=== PATIENT | female | born 1990 | race Caucasian/White ===

== ENCOUNTER 2017-02-07 10:31 | Emergency (ER) | payer SELFPAY ==
[2017-02-07 10:55] VITALS: BP 136/78
--- NOTE | 2017-02-07 11:27 | ED ---
Skin Complaint - HPI Summary HPI Summary: 26F presents with bug bites to legs and arm s/p going outside two days ago. denies seeing anything bite her. States that the areas itch and the redness around them has been getting larger. has history of reaction to bug bites. she can not take bendaryl. denies any fevers. - History of Current Complaint Chief Complaint: EDAnimalBite Time Seen by Provider: 02/07/17 10:50 Stated Complaint: UNKNOWN BUG BITES Hx Last Menstrual Period: 09/07/16 Pain Intensity: 4 - Allergy/Home Medications Allergies/Adverse Reactions: Allergies Allergy/AdvReac Type Severity Reaction Status Date / Time Penicillins Allergy Intermediate Hives Verified 07/23/16 12:50 Sulfa Drugs Allergy Intermediate Hives Verified 07/23/16 12:50 Diphenhydramine AdvReac Flushing Verified 07/23/16 12:50 [From Benadryl] PMH/Surg Hx/FS Hx/Imm Hx Endocrine/Hematology History: Denies: Hx Diabetes, Hx Thyroid Disease Cardiovascular History: Reports: Other Cardiovascular Problems/Disorders - pt developed HTN after giving 12 weeks Denies: Hx Congestive Heart Failure, Hx Hypertension Respiratory History: Denies: Hx Asthma, Hx Chronic Obstructive Pulmonary Disease (COPD) GI History: Reports: Other GI Disorders - pt states she has acid reflux after Denies: Hx Ulcer History: Reports: Hx Renal Disease - preeclampsia, Other Problems/ Disorders - pt had preclampsia with protein in urine Neurological History: Reports: Other Neuro Impairments/Disorders - pt c/o dizziness and feeling pressure in head Psychiatric History: Reports: Hx Anxiety, Hx Depression - Immunization History Date of Tetanus Vaccine: Up to Date Date of Influenza Vaccine: None Infectious Disease History: No Infectious Disease History: Denies: Hx Clostridium Difficile, Hx Hepatitis, Hx Human Immunodeficiency Virus (HIV), Hx of Known/Suspected MRSA, Hx Shingles, Hx Tuberculosis, Hx Known/ Suspected VRE, Hx Known/Suspected VRSA, History Other Infectious Disease, Traveled Outside the [place] in Last 30 Days - Family History Known Family History: Positive: Hypertension - Social History Alcohol Use: Occasionally Substance Use Type: Reports: None Substance Use Comment - Amount & Last Used: YESTERDAY Smoking Status (MU): Former Smoker Type: Cigarettes Amount Used/How Often: 1/2 pp day Length of Time of Smoking/Using Tobacco: 9 years Have You Smoked in the Last Year: No Review of Systems Negative: Fever Negative: Chest Pain Negative: Shortness Of Breath Positive: Other - bites with surrounding erythema All Other Systems Reviewed And Are Negative: Yes Physical Exam Triage Information Reviewed: Yes Vital Signs On Initial Exam: Initial Vitals Temp Pulse Resp BP Pulse Ox 98 F 85 18 132/68 93 02/07/17 10:40 02/07/17 10:40 02/07/17 10:40 02/07/17 10:40 02/07/17 10:40 Vital Signs Reviewed: Yes Appearance: Positive: Well-Appearing Skin: Positive: Other - multiples bites across body with local allergy reaction surrounding. none of them appear infected. Head/Face: Positive: Normal Head/Face Inspection Eyes: Positive: Normal, Conjunctiva Clear Respiratory/Lung Sounds: Positive: Clear to Auscultation, Breath Sounds Present Cardiovascular: Positive: Normal, RRR Diagnostics - Vital Signs Vital Signs Temp Pulse Resp BP Pulse Ox 02/07/17 10:47 98 F 84 18 136/78 99 02/07/17 10:40 98 F 85 18 132/68 93 - Laboratory Lab Statement: Any lab studies that have been ordered have been reviewed, and results considered in the medical decision making process. Course/Dx - Course Course Of Treatment: 26F presents with bug bites across body. on exam having local allergy reaction to bites. since can not do bendaryl will give script for hydrocoristone and prednisone. patient understands and agrees with plan - Differential Diagnoses - Skin Complaint Differential Diagnoses: Cellulitis, Local Allergic Reaction, Other - bites - Diagnoses Provider Diagnoses: Bug bites Discharge - Discharge Plan Condition: Good Disposition: HOME Prescriptions: Hydrocortisone 1% CREAM* [Hytone Cream 1%*] 1 applic TOPICAL BID PRN #1 tube PRN Reason: Itching Methylprednisolone [Medrol Dosepak 4 MG*] 4 mg PO .SEE PAGE INSTRUCTION #1 packet Patient Education Materials: Insect Bite or Sting (ED) Referrals: Ina Bowers MD [Primary Care Provider] - Additional Instructions: Can apply cream with hydrocortisone to area for itchy twice a day Follow directions on dose pack for prednisone Return to ED if develop SOB, difficulty swallowing or any new or worsening symptoms
[2017-02-07 11:44] LABS: Manual Entry Verification AS; UR Preg Internal Control QC Line Present; UR Preg Kit Lot# 6030156
== END 2017-02-07 11:43 | disposition home or self-care (01) ==
LOC: ED 10:31
DX: S80.862A Insect bite (nonvenomous), left lower leg, initial encounter (principal); S80.861A Insect bite (nonvenomous), right lower leg, initial encounter; S40.869A Insect bite (nonvenomous) of unspecified upper arm, initial encounter; W57.XXXA Bitten or stung by nonvenomous insect and other nonvenomous arthropods, initial encounter; Y93.9 Activity, unspecified; Y92.9 Unspecified place or not applicable; Z32.02 Encounter for pregnancy test, result negative; I10 Essential (primary) hypertension; K21.9 Gastro-esophageal reflux disease without esophagitis; F41.8 Other specified anxiety disorders; Z88.1 Allergy status to other antibiotic agents; Z88.2 Allergy status to sulfonamides; Z88.8 Allergy status to other drugs, medicaments and biological substances; Z87.891 Personal history of nicotine dependence
CPT/HCPCS: 81025; 99281

== ENCOUNTER 2017-03-26 12:01 | Emergency (ER) | payer MEDICAID ==
[2017-03-26 12:09] VITALS: BP 122/64
[2017-03-26] MEDS ORDERED: Ketorolac INJ* 60 MG/2 ML VIAL IM ONE (13:36)
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
--- NOTE | 2017-03-26 14:48 | RAD ---
Indication: Neck pain. 3 views of the cervical spine demonstrates vertebral bodies to be normal in height. No fracture is noted. Straightening of the normal lordosis. IMPRESSION: No fracture of the cervical spine is present.
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
== END 2017-03-26 16:34 | disposition home or self-care (01) ==
LOC: ED 12:01
DX: S06.0X0A Concussion without loss of consciousness, initial encounter (principal); T14.8 Other injury of unspecified body region; Y09 Assault by unspecified means
CPT/HCPCS: 70450; 70486; 72040; 96372; 99282; J1885

== ENCOUNTER 2017-05-22 18:26 | Emergency (ER) | payer MEDICAID ==
--- NOTE | 2017-05-22 19:36 | UC ---
Sharon Tomlin SooYoung, scribed for Skinny Gaspar MD on 05/22/17 at 1920 . Abdominal Pain Female HPI - HPI Summary HPI Summary: A 27 y/o F [place] [facility] [place]/o LLQ abd pain onset a few days ago. Pain woke her up from sleep last night, rates pain as 6-7 out of 10, and radiates to her back. Denies prev abd surgery. One prev , vaginal delivery. PMHx: ovarian cysts. Associated sx: vaginal discharge. Denies: dysuria, fever, chills , BM changes. Aggravating factors: cough. - History of Current Complaint Chief Complaint: UCAbdominalPain Stated Complaint: ABD PAIN Time Seen by Provider: 05/22/17 19:16 Hx Obtained From: Patient Hx Last Menstrual Period: unk Onset/Duration: Lasting Days, Still Present Timing: Constant Severity Initially: Moderate Severity Currently: Moderate Pain Intensity: 6 Pain Scale Used: 0-10 Numeric Location: Discrete At: LLQ Radiates: Yes Radiates to: Back Aggravating Factor(s): Other: - cough Associated Signs and Symptoms: Positive: Vaginal Discharge. Negative: Fever, Urinary Symptoms, Other: - neg: chills Allergies/Adverse Reactions: Allergies Allergy/AdvReac Type Severity Reaction Status Date / Time Penicillins Allergy Intermediate Hives Verified 07/23/16 12:50 Sulfa Drugs Allergy Intermediate Hives Verified 07/23/16 12:50 Diphenhydramine AdvReac Flushing Verified 07/23/16 12:50 [From Benadryl] PMH/Surg Hx/FS Hx/Imm Hx Previously Healthy: No Cardiovascular History: Other Other Cardiovascular History: leaking valve GI/ History: Other Other GI/ History: ovarian cysts - Surgical History Surgical History: None Surgery Procedure, Year, and Place: n/a - Family History Known Family History: Positive: Hypertension - Social History Occupation: Employed Full-time Lives: Alone Alcohol Use: Occasionally Alcohol Amount: YESTERDAY Substance Use Type: None Substance Use Comment - Amount & Last Used: YESTERDAY Smoking Status (MU): Former Smoker Type: Cigarettes Amount Used/How Often: 1/2 pp day Length of Time of Smoking/Using Tobacco: 9 years Have You Smoked in the Last Year: No When Did the Patient Quit Smoking/Using Tobacco: 06/2013 Household Exposure Type: Cigarettes - Immunization History Most Recent Influenza Vaccination: about 2 months ago Most Recent Tetanus Shot: 11/25/13 Most Recent Pneumonia Vaccination: never Review of Systems Constitutional: Negative Skin: Negative Eyes: Negative ENT: Negative Respiratory: Negative Cardiovascular: Negative Gastrointestinal: Abdominal Pain Genitourinary: Other - pos: vaginal discharge Motor: Negative Neurovascular: Negative Musculoskeletal: Negative Neurological: Negative Psychological: Negative All Other Systems Reviewed And Are Negative: Yes Physical Exam Triage Information Reviewed: Yes Appearance: Well-Appearing, Pain Distress - Mild Vital Signs: Initial Vital Signs Temp 99 F 05/22/17 18:29 Pulse 67 05/22/17 18:29 Resp 16 05/22/17 18:29 BP 115/71 05/22/17 18:29 Pulse Ox 100 05/22/17 18:29 Vital Signs Reviewed: Yes Eyes: Positive: Other: - MANOHAR/EOMI ENT: Positive: Hearing grossly normal Neck: Positive: Supple, Nontender Respiratory: Positive: Chest non-tender, Lungs clear, Normal breath sounds Cardiovascular: Positive: RRR Abdomen Description: Positive: Soft, Other: - tenderness at LLQ and L-side of abd Bowel Sounds: Positive: Present Musculoskeletal: Positive: Strength Intact, ROM Intact Neurological Exam: Normal - motor/sensory intact Neurological: Positive: Alert - A&Ox3 Psychological: Positive: Age Appropriate Behavior Skin Exam: Normal - warm, dry, color reflects adequate perfusion Abd Pain Female Course/Dx - Course Course Of Treatment: Pt medication reviewed this visit. Normal BP reading and no follow-up instructions required. NO U/S OR LABS THAT WILL RESULT TODAY AVAILABLE IN CLINIC. DISCUSSED WITH DR JEFFERS IN ED. TRANSFER BY AMBULANCE TO ED. - Differential Dx/Diagnosis Provider Diagnoses: PELVIC/LLQ PAIN Discharge - Discharge Plan Condition: Stable Disposition: [facility] Referrals: Ina Bowers MD [Primary Care Provider] - Lab Results - Lab Results Lab Results: 05/22/17 05/22/17 18:48 18:53 POC Urine Color Yellow POC Urine Clarity Clear POC Urine pH 7.0 POC Ur Specif [place] 1.020 POC Urine Protein Negative POC Ur Glucose (UA) Negative POC Urine Ketones Negative POC Urine Blood Negative POC Urine Nitrite Negative POC Urine Bilirubin Negative POC Urine Urobilinogen 0.2 POC U Leukocyte Esteras Negative POC Ur Test Negative The documentation as recorded by the Sharon silva SooYoung accurately reflects the service I personally performed and the decisions made by me, Skinny Gaspar MD.
[2017-05-22] MEDS ORDERED: NS 0.9% 1000 ML* 1,000 ML IV ONE (19:39)
[2017-05-22 20:08] VITALS: BP 122/71
== END 2017-05-22 20:00 | disposition short-term general hospital (02) ==
LOC: UCEAST 18:26
DX: R10.2 Pelvic and perineal pain (principal); R10.32 Left lower quadrant pain; N89.8 Other specified noninflammatory disorders of vagina; Z32.02 Encounter for pregnancy test, result negative; Z88.0 Allergy status to penicillin; Z88.2 Allergy status to sulfonamides; Z87.891 Personal history of nicotine dependence
CPT/HCPCS: 81003; 84702; 96360; 99213; G0463

== ENCOUNTER 2017-05-22 20:17 | Emergency (ER) | payer MEDICAID, OTHER ==
[2017-05-22] MEDS ORDERED: Ketorolac INJ* 30 MG/ML 1 ML VIAL IV PUSH ONE (20:21)
[2017-05-22] MEDS ORDERED: Ondansetron INJ* 2 MG/ML VIAL IV ONE (20:21)
[2017-05-22] MEDS ORDERED: NS 0.9% 1000 ML* 1,000 ML IV ONE (20:21)
[2017-05-22 20:33] LABS: Hematocrit 40 % (35-47); Hemoglobin 13.1 g/dl (12.0-16.0); Mean Corpuscular HGB Conc 33 g/dl (31-36); Mean Corpuscular Hemoglobin 32 pg (27-31); Mean Corpuscular Volume 97 fL (80-97); Mean Platelet Volume 8 um3 (7.4-10.4); Red Cell Distribution Width 13 % (10.5-15); White Blood Count 6.3 10^3/ul (3.5-10.8)
[2017-05-22 20:49] LABS: ALT 8 U/L (7-52); AST 11 U/L (13-39); Alkaline Phosphatase 65 U/L (34-104); Anion Gap 4 mmol/L (2-11); BUN/Creatinine Ratio 16.2 (8-20); Blood Urea Nitrogen 11 mg/dL (6-24); CO2 Carbon Dioxide 29 mmol/L (22-32); Calcium 8.6 mg/dL (8.6-10.3); Chloride 106 mmol/L (101-111); EGFR African American 135.6 (>60); EGFR Non-African American 105.4 (>60); Globulin 2.4 g/dL (2-4); Glucose 87 mg/dL (70-100); Potassium 3.8 mmol/L (3.5-5.0); Sodium 139 mmol/L (133-145); Total Protein 6.4 g/dL (6.4-8.9)
--- NOTE | 2017-05-22 21:26 | ED ---
Lizabeth Tomlin Alfonso, scribed for Vasyl Zuñiga MD on 05/22/17 at 2025 . Abdominal Pain/Female - HPI Summary HPI Summary: This patient is a 27 year old F BIBA from [facility] to [facility] with a chief complaint of LLQ abdominal pain since a few days. The pain has been constant and has gradually become worse. The CC is described as a pressure. The patient rates the pain 7/10 in severity. Symptoms aggravated and alleviated by nothing. Symptoms not alleviated by Tylenol and ibuprofen. Patient reports chills, and vaginal discharge. Patient denies fever, nausea, vomiting, and urinary symptoms. - History of Current Complaint Stated Complaint: ABD PAIN Time Seen by Provider: 05/22/17 20:20 Hx Obtained From: Patient Onset/Duration: Gradual Onset, Lasting Days, Worse Since Timing: Constant Severity Initially: Moderate Severity Currently: Moderate Pain Intensity: 7 Pain Scale Used: 0-10 Numeric Location: Discrete At: LLQ Character: Other: - Pressure Aggravating Factor(s): Nothing Alleviating Factor(s): Nothing Associated Signs and Symptoms: Positive: Other: - Patient reports chills, and vaginal discharge. Patient denies fever, nausea, vomiting, and urinary symptoms. Allergies/Adverse Reactions: Allergies Allergy/AdvReac Type Severity Reaction Status Date / Time Penicillins Allergy Intermediate Hives Verified 07/23/16 12:50 Sulfa Drugs Allergy Intermediate Hives Verified 07/23/16 12:50 Diphenhydramine AdvReac Flushing Verified 07/23/16 12:50 [From Benadryl] PMH/Surg Hx/FS Hx/Imm Hx Endocrine/Hematology History: Denies: Hx Diabetes, Hx Thyroid Disease Cardiovascular History: Reports: Other Cardiovascular Problems/Disorders - pt developed HTN after giving 12 weeks Denies: Hx Congestive Heart Failure, Hx Hypertension Respiratory History: Denies: Hx Asthma, Hx Chronic Obstructive Pulmonary Disease (COPD) GI History: Reports: Other GI Disorders - pt states she has acid reflux after Denies: Hx Ulcer History: Reports: Hx Renal Disease - preeclampsia, Other Problems/ Disorders - pt had preclampsia with protein in urine Neurological History: Reports: Other Neuro Impairments/Disorders - pt c/o dizziness and feeling pressure in head Psychiatric History: Reports: Hx Anxiety, Hx Depression - Surgical History Surgery Procedure, Year, and Place: n/a - Immunization History Date of Tetanus Vaccine: Up to Date Date of Influenza Vaccine: None Infectious Disease History: Denies: Hx Clostridium Difficile, Hx Hepatitis, Hx Human Immunodeficiency Virus (HIV), Hx of Known/Suspected MRSA, Hx Shingles, Hx Tuberculosis, Hx Known/ Suspected VRE, Hx Known/Suspected VRSA, History Other Infectious Disease - Family History Known Family History: Positive: Hypertension - Social History Alcohol Use: Occasionally Alcohol Amount: YESTERDAY Substance Use Type: Reports: None Substance Use Comment - Amount & Last Used: YESTERDAY Smoking Status (MU): Former Smoker Type: Cigarettes Amount Used/How Often: 1/2 pp day Length of Time of Smoking/Using Tobacco: 9 years Have You Smoked in the Last Year: No Review of Systems Positive: Chills. Negative: Fever Positive: Abdominal Pain - LLQ. Negative: Vomiting, Nausea Positive: discharge - Vaginal, other - Negative urinary symptoms All Other Systems Reviewed And Are Negative: Yes Physical Exam Triage Information Reviewed: Yes Vital Signs Reviewed: Yes Appearance: Positive: Well-Appearing, No Pain Distress Skin: Positive: Warm Head/Face: Positive: Normal Head/Face Inspection Eyes: Positive: MANOHAR ENT: Positive: Hearing grossly normal Neck: Positive: Supple Respiratory/Lung Sounds: Positive: Breath Sounds Present Cardiovascular: Positive: RRR Abdomen Description: Positive: No Organomegaly, Soft, Other: - mild suprapubic tenderness Bowel Sounds: Positive: Present Pelvic Exam: Positive: other - pt does not want pelvic exam Musculoskeletal: Positive: Strength/ROM Intact Neurological: Positive: Alert, Oriented to Person Place, Time Psychiatric: Positive: Affect/Mood Appropriate Diagnostics - Laboratory Result Diagrams: 05/22/17 19:40 05/22/17 19:40 Lab Statement: Any lab studies that have been ordered have been reviewed, and results considered in the medical decision making process. - Additional Comments Diagnostic Additional Comments: A transvaginal US reveals, per radiologist, No ovarian torsion. Color flow with appropriate arterial and venous waveforms on the left and arterial waveforms on the right. 2.7 cm hemorrhagic cyst and 2.3 cm simple follicle right ovary. Patient reportedly had left-sided ovarian cysts on a pervious ultrasound per technologists notes, but on current exam left ovary shows multiple small follicles. Small physiologic free fluid pelvis. Normal uterus. Endometrial stripe complex 7 mm thick. Re-Evaluation - Re-Evaluation First Eval Comment: results d/w pt, pt states knows that she has a yeast infection and requesting meds for same Abdominal Pain Fem Course/Dx - Course Course Of Treatment: This patient is a 27 year old F BIBA from [facility] to [facility] with a chief complaint of LLQ abdominal pain since a few days. The pain has been constant and has gradually become worse. The CC is described as a pressure. The patient rates the pain 7/10 in severity. Symptoms aggravated and alleviated by nothing. Symptoms not alleviated by Tylenol and ibuprofen. Patient reports chills, and vaginal discharge. Patient denies fever, nausea, vomiting, and urinary symptoms. A transvaginal US reveals, per radiologist, No ovarian torsion. Color flow with appropriate arterial and venous waveforms on the left and arterial waveforms on the right. 2.7 cm hemorrhagic cyst and 2.3 cm simple follicle right ovary. Patient reportedly had left-sided ovarian cysts on a pervious ultrasound per technologists notes, but on current exam left ovary shows multiple small follicles. Small physiologic free fluid pelvis. Normal uterus. Endometrial stripe complex 7 mm thick. Patient will be discharged with prescriptions and follow up from PCP and OBGYN. The patient is agreeable with this plan. - Diagnoses Provider Diagnoses: Pelvic pain Discharge - Discharge Plan Condition: Stable Disposition: HOME Prescriptions: Clotrimazole 1% VAGINAL CREAM* [Gyne-Lotrimin 1% VAGINAL CREAM*] 1 applic VAGINAL BEDTIME #1 tube Diflunisal TAB* [Dolobid TAB*] 500 mg PO BID #20 tab Patient Education Materials: Pelvic Pain in Women (ED) Referrals: Ina Bowers MD [Primary Care Provider] - 3 Days Clif Mccall MD [Medical Doctor] - 3 Days The documentation as recorded by the Lizabeth silva Alfonso accurately reflects the service I personally performed and the decisions made by me, Vasyl Zuñiga MD.
[2017-05-22 21:37] VITALS: BP 117/77
[2017-05-22] MEDS ORDERED: Morphine INJ* 2 MG/ML 1 ML SYRINGE IV ONE (22:32)
--- NOTE | 2017-05-23 07:44 | RAD ---
INDICATION: Pelvic pain COMPARISON: March 25, 2015 TECHNIQUE: Longitudinal and transverse transvaginal scans of the pelvis were obtained. FINDINGS: Uterus: The uterus is normal in size. There are no focal masses. The uterus measures 6.6 x 4.3 x 5.4 cm. Endometrial thickness: The endometrial thickness is measured at 0.7 cm. Free fluid: There is a small amount of free fluid . Ovaries: The ovaries are normal in size. The right ovary measures 4.0 3.7 x 3.1 cm. The left ovary measures 2.8 x 2.1 x 1.8 cm. There is a complex 2.7 x 1.8 x 2.5 cm right ovarian cyst. This could represent a hemorrhagic cyst. There is a simple cyst measuring 2.3 x 2.3 x 2.0 cm also located within the right ovary. There are additional follicles. Doppler interrogation demonstrates flow to each ovary. Other: None IMPRESSION: 2 0.7 CM COMPLEX RIGHT OVARIAN CYST, LIKELY HEMORRHAGIC CYST. ADDITIONAL 2.3 CM 2.3 CM RIGHT-SIDED SIMP.
== END 2017-05-22 23:57 | disposition home or self-care (01) ==
LOC: ED 20:17
DX: R10.2 Pelvic and perineal pain (principal); R10.32 Left lower quadrant pain; R68.83 Chills (without fever); Z87.891 Personal history of nicotine dependence
CPT/HCPCS: 36415; 76830; 80053; 84702; 85025; 96374; 96375; 99282; J1885; J2270; J2405

== ENCOUNTER → 2017-06-21 01:28 | Emergency (ER) | payer OTHER ==
[~2017-06-21 01:28] MED LIST: Ibuprofen TAB* 600 MG PO ONE
[2017-06-21 01:34] VITALS: BP 132/78
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
--- NOTE | 2017-06-21 08:01 | RAD ---
INDICATION: Left hand injury. TECHNIQUE: 4 views of the left hand were obtained. FINDINGS: The bones are in normal alignment. No fracture is seen. Joint spaces appear maintained. IMPRESSION: NO EVIDENCE FOR FRACTURE, IF THE PATIENT'S SYMPTOMS PERSIST RECOMMEND FOLLOW-UP IMAGING.
== END | disposition home or self-care (01) ==
LOC: ED 01:28
DX: F10.129 Alcohol abuse with intoxication, unspecified (principal); K08.89 Other specified disorders of teeth and supporting structures; T14.8 Other injury of unspecified body region; F17.210 Nicotine dependence, cigarettes, uncomplicated; Z88.0 Allergy status to penicillin; Z88.2 Allergy status to sulfonamides; F41.9 Anxiety disorder, unspecified; F32.9 Major depressive disorder, single episode, unspecified; Y04.8XXA Assault by other bodily force, initial encounter; Y92.9 Unspecified place or not applicable
CPT/HCPCS: 99282; A9270-GY

== ENCOUNTER 2017-06-27 14:59 | Emergency (ER) | payer OTHER ==
--- NOTE | 2017-06-27 15:03 | UC ---
Upper Extremity HPI - HPI Summary HPI Summary: 27 YEAR OLD FEMALE PRESENTS WITH COMPLAINS OF DISCOLORATION OF LEFT HAND AND MULTIPLE BODY CONTUSION. - History of Current Complaint Stated Complaint: HAND INJURY Time Seen by Provider: 06/27/17 15:03 Hx Obtained From: Patient Hx Last Menstrual Period: unk Onset/Duration: Sudden Onset Severity Initially: Moderate Severity Currently: Moderate Pain Scale Used: 0-10 Numeric - 7 Character: Sharp Aggravating Factor(s): Movement, Lifting, Flexion, Extension Alleviating Factor(s): Nothing Associated Signs And Symptoms: Positive: Negative - Allergies/Home Medications Allergies/Adverse Reactions: Allergies Allergy/AdvReac Type Severity Reaction Status Date / Time Penicillins Allergy Intermediate Hives Verified 06/27/17 15:16 Sulfa Drugs Allergy Intermediate Hives Verified 06/27/17 15:16 Diphenhydramine AdvReac Flushing Verified 06/27/17 15:16 [From Benadryl] Home Medications: Home Medications Ibuprofen TAB* [Advil TAB*] 400 mg PO PRN 06/27/17 [History] PMH/Surg Hx/FS Hx/Imm Hx Previously Healthy: Yes - Surgical History Surgical History: None Surgery Procedure, Year, and Place: n/a - Family History Known Family History: Positive: Hypertension - Social History Alcohol Use: Occasionally Alcohol Amount: YESTERDAY Substance Use Type: None Substance Use Comment - Amount & Last Used: YESTERDAY Smoking Status (MU): Former Smoker Type: Cigarettes Amount Used/How Often: 1/2 pp day Length of Time of Smoking/Using Tobacco: 9 years Have You Smoked in the Last Year: No When Did the Patient Quit Smoking/Using Tobacco: 06/2013 Household Exposure Type: Cigarettes - Immunization History Most Recent Influenza Vaccination: about 2 months ago Most Recent Tetanus Shot: 11/25/13 Most Recent Pneumonia Vaccination: never Review of Systems Constitutional: Negative Skin: Negative Eyes: Negative ENT: Negative Respiratory: Negative Cardiovascular: Negative Gastrointestinal: Negative Genitourinary: Negative Motor: Negative Neurovascular: Negative Musculoskeletal: Other: - LOWER BACK PAIN Neurological: Negative Psychological: Negative All Other Systems Reviewed And Are Negative: Yes Physical Exam Triage Information Reviewed: Yes Eye Exam: Normal ENT Exam: Normal Dental Exam: Normal Neck exam: Normal Neck: Positive: 1 Respiratory Exam: Normal Cardiovascular Exam: Normal Abdominal Exam: Normal Musculoskeletal: Positive: Strength Limited @, ROM Limited @, Other: - LOWER BACK PAIN Neurological Exam: Normal Psychological Exam: Normal Skin Exam: Normal Upper Extremity Course/Dx - Differential Dx/Diagnosis Provider Diagnoses: LOWER BACK PAIN Discharge - Discharge Plan Condition: Guarded Disposition: TRANS HIGHER LVL OF CARE FAC Referrals: Ina Bowesr MD [Primary Care Provider] -
[2017-06-27 15:15] VITALS: BP 141/76
== END 2017-06-27 15:42 | disposition short-term general hospital (02) ==
LOC: UCEAST 14:59
DX: M54.5 Low back pain (principal); Z88.0 Allergy status to penicillin; Z88.2 Allergy status to sulfonamides; Z88.8 Allergy status to other drugs, medicaments and biological substances
CPT/HCPCS: 93005; 99213; G0463

== ENCOUNTER → 2017-06-27 16:01 | Emergency (ER) | payer OTHER ==
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
--- NOTE | 2017-06-27 17:20 | RAD ---
INDICATION: Midsternal chest pain COMPARISON: Similar chest x-ray August 25, 2014 TECHNIQUE: Single AP portable view of the chest was obtained. FINDINGS: Image quality is compromised due to the relative inferiority of a portable chest x-ray. The heart and mediastinum exhibit normal size and contour. The lungs are grossly clear. There is no evidence of a large pleural effusion. Visualized bones are normal for the patient's age. IMPRESSION: No radiographic evidence for acute cardiopulmonary abnormality on this portable chest x-ray.
--- NOTE | 2017-06-27 17:22 | RAD ---
INDICATION: Hand redness after punching something COMPARISON: Similar examination dated June 21, 2017 TECHNIQUE: 2 views of the left hand were obtained. FINDINGS: The adequately corticated bones are in normal alignment. No significant focal osseous abnormality or fracture is seen. Joint spaces appear maintained. IMPRESSION: Normal left hand radiograph. If the patient's symptoms persist, follow-up imaging is recommended.
[2017-06-27 17:38] LABS: Hematocrit 41 % (35-47); Mean Corpuscular HGB Conc 34 g/dl (31-36); Mean Corpuscular Hemoglobin 33 pg (27-31); Mean Corpuscular Volume 96 fL (80-97); Mean Platelet Volume 7 um3 (7.4-10.4); Red Blood Count 4.31 10^6/ul (4.0-5.4); Red Cell Distribution Width 13 % (10.5-15)
[2017-06-27 17:59] LABS: Albumin 4.6 g/dL (3.2-5.2); BUN/Creatinine Ratio 19.7 (8-20); C Reactive Protein 4.53 mg/L (< 5.00); Calcium 9.4 mg/dL (8.6-10.3); EGFR African American 153.7 (>60); EGFR Non-African American 119.5 (>60); Globulin 2.6 g/dL (2-4); Potassium 3.6 mmol/L (3.5-5.0); Total Bilirubin 0.7 mg/dL (0.2-1.0); Total Protein 7.2 g/dL (6.4-8.9)
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
[2017-06-27 18:30] VITALS: BP 135/82
== END | disposition home or self-care (01) ==
LOC: ED 16:01
DX: S60.229A Contusion of unspecified hand, initial encounter (principal); S09.90XA Unspecified injury of head, initial encounter; F17.210 Nicotine dependence, cigarettes, uncomplicated; R07.9 Chest pain, unspecified; K08.89 Other specified disorders of teeth and supporting structures; Y09 Assault by unspecified means; Y93.9 Activity, unspecified; Y92.9 Unspecified place or not applicable
CPT/HCPCS: 36415; 70450; 71010; 80053; 84484; 85025; 86140; 86703; 93005; 99282

== ENCOUNTER 2017-07-20 19:39 | Emergency (ER) | payer OTHER ==
[2017-07-20 19:50] VITALS: BP 120/73
--- NOTE | 2017-07-20 21:09 | UC ---
Respiratory Complaint HPI - HPI Summary HPI Summary: Patient presents with complaints of generalized fatigue and malaise. She also complains of sore throat, chest congestion and cough. She denies fever, chills, recent ill contacts or travel. She also states she is late for her period and is requesting a test. She denies any abnormal vaginal discharge, dysuria, or vaginal bleeding. - History of Current Complaint Chief Complaint: UCRespiratory Stated Complaint: COUGH Time Seen by Provider: 07/20/17 20:02 Hx Obtained From: Patient Hx Last Menstrual Period: 06/21/17 Onset/Duration: Gradual Onset, Lasting Days Timing: Constant Severity Initially: Mild Severity Currently: Moderate Character: Cough: Nonproductive Aggravating Factors: Recumbent Position Alleviating Factors: Spontaneous Resolution Associated Signs And Symptoms: Positive: URI, Nasal Congestion, Sinus Discomfort - Risk Factors Pulmonary Embolism Risk Factors: Negative Cardiac Risk Factors: Smoking Pseudomonas Risk Factors: Negative Tuberculosis Risk Factors: Negative - Allergies/Home Medications Allergies/Adverse Reactions: Allergies Allergy/AdvReac Type Severity Reaction Status Date / Time Penicillins Allergy Intermediate Hives Verified 06/27/17 15:16 Sulfa Drugs Allergy Intermediate Hives Verified 06/27/17 15:16 Diphenhydramine AdvReac Flushing Verified 06/27/17 15:16 [From Benadryl] Home Medications: Home Medications Fluocinonide 0.05% CM (NF) [Lidex 0.05% CREAM (NF)] 1 applic TOPICAL 07/20/17 [ History] PMH/Surg Hx/FS Hx/Imm Hx Previously Healthy: Yes - Surgical History Surgical History: None Surgery Procedure, Year, and Place: n/a - Family History Known Family History: Positive: Cardiac Disease - Not immediate family, uncle, Hypertension - Social History Occupation: Employed Full-time Lives: Alone Alcohol Use: Weekly Alcohol Amount: TWICE/WEEK Substance Use Type: Marijuana Substance Use Comment - Amount & Last Used: daily Smoking Status (MU): Current Some Day Smoker Type: Cigarettes Amount Used/How Often: 1/2 pp day Length of Time of Smoking/Using Tobacco: 9 years Have You Smoked in the Last Year: No When Did the Patient Quit Smoking/Using Tobacco: 06/2013 Household Exposure Type: Cigarettes - Immunization History Most Recent Influenza Vaccination: about 2 months ago Most Recent Tetanus Shot: 11/25/13 Most Recent Pneumonia Vaccination: never Review of Systems Constitutional: Fatigue Skin: Negative Eyes: Negative ENT: Sore Throat, Ear Ache, Nasal Discharge Respiratory: Cough Cardiovascular: Negative Gastrointestinal: Negative Genitourinary: Negative Motor: Negative Neurovascular: Negative Musculoskeletal: Negative All Other Systems Reviewed And Are Negative: Yes Physical Exam Triage Information Reviewed: Yes Appearance: Well-Appearing Vital Signs: Initial Vital Signs Temp 97.9 F 07/20/17 19:47 Pulse 79 07/20/17 19:47 Resp 18 07/20/17 19:47 BP 120/73 07/20/17 19:47 Pulse Ox 98 07/20/17 19:47 Vital Signs Reviewed: Yes Eye Exam: Normal ENT: Positive: Pharyngeal erythema, Nasal congestion Neck exam: Normal Respiratory Exam: Normal Cardiovascular Exam: Normal Abdominal Exam: Normal Musculoskeletal Exam: Normal UC Diagnostic Evaluation - Laboratory O2 Sat by Pulse Oximetry: 98 Respiratory Course/Dx - Course Course Of Treatment: Patient presents with URI/Viral syndrome. treatment is fluids, rest, and tylenol for pain or fever. test was negative. She was taken out of work for one day. If her symtpoms do no improve as anticipated she was told to come back to the clinic. - Differential Dx/Diagnosis Differential Diagnosis/HQI/PQRI: Other - uri viral syndrome Provider Diagnoses: uri. viral syndrome Discharge - Discharge Plan Condition: Stable Disposition: HOME Patient Education Materials: Viral Syndrome (ED) Forms: *Work Release Referrals: Ina Bowers MD [Primary Care Provider] -
== END 2017-07-20 20:21 | disposition home or self-care (01) ==
LOC: UCEAST 19:39
DX: J06.9 Acute upper respiratory infection, unspecified (principal); F17.210 Nicotine dependence, cigarettes, uncomplicated; Z88.0 Allergy status to penicillin; Z88.2 Allergy status to sulfonamides; B34.9 Viral infection, unspecified; Z32.02 Encounter for pregnancy test, result negative
CPT/HCPCS: 81003; 84702; 99211; G0463

== ENCOUNTER 2017-08-28 14:07 | Emergency (ER) | payer OTHER ==
[2017-08-28 16:40] LABS: Urine Bilirubin Negative (Negative); Urine Glucose Negative (Negative); Urine Nitrite Negative (Negative)
[2017-08-28 16:45] LABS: UR Preg Internal Control QC Line Present
--- NOTE | 2017-08-28 16:58 | ED ---
GI/ HPI - HPI Summary HPI Summary: 27F presents with right flank pain, frequency, and right leg pain for 2 days. She denies any fever. She states that abdominal pain feels most like ovarian cyst that has a history of. She admits to vaginal discharge. She denies any dysuria. She denies any injury. She denies any saddle anaesthesia. She denies any numbness or tingling down leg. She has been having diarrhea. She states pelvic pain is cramp like. She admits to frequency and urgency. She says leg pain feels like an ache. She denies any back pain. She admits to nausea and vomiting. She denies any previous abdominal surgeries. - History of Current Complaint Chief Complaint: EDAbdPain Time Seen by Provider: 08/28/17 16:14 Stated Complaint: ABD PAIN Hx Last Menstrual Period: 06/21/17 Pain Intensity: 7 - Allergy/Home Medications Allergies/Adverse Reactions: Allergies Allergy/AdvReac Type Severity Reaction Status Date / Time Penicillins Allergy Intermediate Hives Verified 06/27/17 15:16 Sulfa Drugs Allergy Intermediate Hives Verified 06/27/17 15:16 Diphenhydramine AdvReac Flushing Verified 06/27/17 15:16 [From Benadryl] PMH/Surg Hx/FS Hx/Imm Hx Endocrine/Hematology History: Denies: Hx Diabetes, Hx Thyroid Disease Cardiovascular History: Reports: Other Cardiovascular Problems/Disorders - pt developed HTN after giving 12 weeks Denies: Hx Congestive Heart Failure, Hx Hypertension Respiratory History: Denies: Hx Asthma, Hx Chronic Obstructive Pulmonary Disease (COPD) GI History: Reports: Other GI Disorders - pt states she has acid reflux after Denies: Hx Ulcer History: Reports: Hx Renal Disease - preeclampsia, Other Problems/ Disorders - pt had preclampsia with protein in urine Neurological History: Reports: Other Neuro Impairments/Disorders - pt c/o dizziness and feeling pressure in head Psychiatric History: Reports: Hx Anxiety, Hx Depression - Surgical History Surgery Procedure, Year, and Place: n/a - Immunization History Date of Tetanus Vaccine: Up to Date Date of Influenza Vaccine: None Infectious Disease History: No Infectious Disease History: Denies: Hx Clostridium Difficile, Hx Hepatitis, Hx Human Immunodeficiency Virus (HIV), Hx of Known/Suspected MRSA, Hx Shingles, Hx Tuberculosis, Hx Known/ Suspected VRE, Hx Known/Suspected VRSA, History Other Infectious Disease, Traveled Outside the [place] in Last 30 Days - Family History Known Family History: Positive: Cardiac Disease - Not immediate family, uncle, Hypertension - Social History Alcohol Use: Weekly Alcohol Amount: TWICE/WEEK Substance Use Type: Reports: Marijuana Substance Use Comment - Amount & Last Used: daily Smoking Status (MU): Current Some Day Smoker Type: Cigarettes Amount Used/How Often: 1/2 pp day Length of Time of Smoking/Using Tobacco: 9 years Have You Smoked in the Last Year: No Review of Systems Negative: Fever Negative: Chest Pain Negative: Shortness Of Breath Positive: Abdominal Pain, Vomiting, Diarrhea, Nausea Positive: frequency, flank pain Positive: Myalgia - right leg pain All Other Systems Reviewed And Are Negative: Yes Physical Exam Triage Information Reviewed: Yes Vital Signs On Initial Exam: Initial Vitals Temp Pulse Resp BP Pulse Ox 97.7 F 80 17 100/72 98 08/28/17 14:09 08/28/17 14:09 08/28/17 14:09 08/28/17 14:09 08/28/17 14:09 Vital Signs Reviewed: Yes Appearance: Positive: Well-Appearing Skin: Positive: Warm, Dry Head/Face: Positive: Normal Head/Face Inspection Eyes: Positive: Normal, EOMI, MANOHAR, Conjunctiva Clear ENT: Positive: Normal ENT inspection, Pharynx normal, TMs normal Respiratory/Lung Sounds: Positive: Clear to Auscultation, Breath Sounds Present Cardiovascular: Positive: Normal, RRR Abdomen Description: Positive: Soft, CVA Tenderness (R), Other: - tenderness suprapubic region, neg rosvings, obturator Bowel Sounds: Positive: Present Musculoskeletal: Positive: Strength/ROM Intact - back, right leg, Other - neg SLR, no midline tenderness back. Neurological: Positive: Normal, Reflexes Intact - patella Psychiatric: Positive: Normal - Laxmi Coma Scale Coma Scale Total: 15 Diagnostics - Vital Signs Vital Signs Temp Pulse Resp BP Pulse Ox 08/28/17 14:12 97.6 F 79 18 112/66 98 08/28/17 14:09 97.7 F 80 17 100/72 98 - Laboratory Lab Results: Lab Results 08/28/17 Range/Units 16:23 Urine Color Yellow Urine Appearance Cloudy Urine pH 5.0 (5-9) Ur Specific [place] 1.024 (1.010-1.030) Urine Protein Negative (Negative) Urine Ketones 1+ H (Negative) Urine Blood Negative (Negative) Urine Nitrate Negative (Negative) Urine Bilirubin Negative (Negative) Urine Urobilinogen Negative (Negative) Ur Leukocyte Esterase Negative (Negative) Urine Glucose Negative (Negative) Urine Test Negative (Negative) Result Diagrams: 08/28/17 16:56 08/28/17 16:56 Lab Statement: Any lab studies that have been ordered have been reviewed, and results considered in the medical decision making process. - Ultrasound No standard instances Ultrasound Interpretation: No Acute Changes - IMPRESSION: Normal ultrasound of the bilateral kidneys Ultrasound Interpretation Completed By: Radiologist OLGA Course/Dx - Course Course Of Treatment: 27F presents with right flank pain, frequency, and right leg pain for 2 days. She denies any fever. She states that abdominal pain feels most like ovarian cyst that has a history of. She admits to vaginal discharge. She denies any dysuria. She denies any injury. She denies any saddle anaesthesia. She denies any numbness or tingling down leg. She has been having diarrhea. She states pelvic pain is cramp like. She denies any change in vision. She thinks she has a uti. She denies any previous abdominal surgeries. on exam CVA tenderness right. abdomen suprapubic tenderness. neg rovsings. pelvic shows white discharge but no CMT. patient believes has yeast infection so will treat as such with dose of diflucan until cultures done. lab work within normal limit. u/s renal and transvaginal normal. will have follow up with primary for continued care. could be sciatica? patient understand and agrees with plan. - Diagnoses Differential Diagnoses - Female: Pelvic Inflammatory Disease, Urinary Tract Infection Provider Diagnoses: Abdominal pain Discharge - Discharge Plan Condition: Good Disposition: HOME Patient Education Materials: Abdominal Pain (ED) Referrals: Ina Bowers MD [Primary Care Provider] - Additional Instructions: Take Tylenol or ibuprofen for pain Place heat on the area Follow up with primary within 5 days Return to ED if develop any new or worsening symptoms
[2017-08-28 17:07] LABS: Hematocrit 42 % (35-47); Hemoglobin 14.1 g/dl (12.0-16.0); Mean Corpuscular HGB Conc 34 g/dl (31-36); Mean Corpuscular Hemoglobin 32 pg (27-31); Mean Corpuscular Volume 95 fL (80-97); Mean Platelet Volume 7 um3 (7.4-10.4); Red Blood Count 4.36 10^6/ul (4.0-5.4); Red Cell Distribution Width 12 % (10.5-15)
[2017-08-28 17:27] LABS: ALT 8 U/L (7-52); AST 12 U/L (13-39); Albumin 4.4 g/dL (3.2-5.2); Alkaline Phosphatase 66 U/L (34-104); Anion Gap 4 mmol/L (2-11); BUN/Creatinine Ratio 13.7 (8-20); Blood Urea Nitrogen 10 mg/dL (6-24); CO2 Carbon Dioxide 27 mmol/L (22-32); Calcium 9.2 mg/dL (8.6-10.3); Chloride 105 mmol/L (101-111); EGFR African American 124.9 (>60); EGFR Non-African American 97.1 (>60); Globulin 2.2 g/dL (2-4); Glucose 85 mg/dL (70-100); Lipase < 10 U/L (11.0-82.0); Potassium 3.9 mmol/L (3.5-5.0); Sodium 136 mmol/L (133-145); Total Protein 6.6 g/dL (6.4-8.9)
[2017-08-28 17:28] LABS: Benzodiazepine Urine Screen None Detected (None Detect)
[2017-08-28] MEDS ORDERED: Ketorolac INJ* 60 MG/2 ML VIAL IM ONE (18:02)
[2017-08-28 18:41] LABS: Trichomonas Source Affirm Vaginal Swab (Negative)
[2017-08-28] MEDS ORDERED: Fluconazole 100 MG TAB* TAB PO ONE (18:45)
--- NOTE | 2017-08-28 19:12 | RAD ---
INDICATION: Right pelvic pain COMPARISON: Most recent comparison pelvic ultrasound is dated May 22, 2017 TECHNIQUE: Real-time transabdominal and transvaginal ultrasound examination of the female pelvis including grayscale and Doppler color flow imaging. FINDINGS: Uterus: The uterus is normal in size and echogenicity measuring 6.7 x 3.4 x 4.1 cm. The endometrial stripe is smooth and uniform measuring 4 mm in thickness. Ovaries: The right and left ovary measure 3.2 x 2.6 x 2.3 cm and 3.7 x 3.1 x 2.1 cm, respectively. Normal arterial and venous waveforms are identified. Appearance is within normal limits for the patient's age. There is small amount of free fluid in the cul-de-sac. IMPRESSION: A small amount of free fluid in the cul-de-sac can be physiologic in a woman of reproductive age. Please correlate to menstrual status.
[2017-08-28 19:45] VITALS: BP 124/78
--- NOTE | 2017-08-28 20:06 | RAD ---
INDICATION: Right flank pain COMPARISON: None TECHNIQUE: Real-time ultrasound examination of the bilateral kidneys and urinary bladder including grayscale and Doppler color flow analysis. FINDINGS: Bilaterally the kidneys are normal in size and echogenicity. There are no hypervascular renal masses. There are no renal calculi or hydronephrosis identified. The urinary bladder is empty at the time of imaging preventing sonographic imaging and identification of ureteral jets. IMPRESSION: Normal ultrasound of the bilateral kidneys.
== END 2017-08-28 19:46 | disposition home or self-care (01) ==
LOC: ED 14:07
DX: R10.9 Unspecified abdominal pain (principal); F41.9 Anxiety disorder, unspecified
CPT/HCPCS: 36415; 76775; 76830; 80053; 80307; 81003; 81025; 83690; 85025; 86141; 87480; 87491; 87510; 87591; 87660; 96372; 99282; A9270-GY; J1885

== ENCOUNTER 2017-11-29 12:17 | Emergency (ER) | payer OTHER ==
[2017-11-29 12:25] VITALS: BP 118/75
[2017-11-29] MEDS ORDERED: Ibuprofen TAB* 600 MG PO ONE (12:33)
--- NOTE | 2017-11-29 13:34 | UC ---
Throat Pain/Nasal Adams HPI - HPI Summary HPI Summary: Sore throat/ fever for 3 days also period is 1 week late - History of Current Complaint Chief Complaint: UCRespiratory Stated Complaint: FEVER Time Seen by Provider: 11/29/17 12:34 Hx Obtained From: Patient Hx Last Menstrual Period: 10/22/17 ?: No Onset/Duration: Sudden Onset Severity: Moderate Pain Intensity: 7 Pain Scale Used: 0-10 Numeric Cough: None Associated Signs & Symptoms: Positive: Fever - Allergies/Home Medications Allergies/Adverse Reactions: Allergies Allergy/AdvReac Type Severity Reaction Status Date / Time diphenhydramine Allergy Flushing Verified 11/29/17 12:27 [From Benadryl] Penicillins Allergy Hives Verified 11/29/17 12:26 Sulfa (Sulfonamide Allergy Hives Verified 11/29/17 12:27 Antibiotics) PMH/Surg Hx/FS Hx/Imm Hx Previously Healthy: Yes Psychological History: Depression - Surgical History Surgical History: None Surgery Procedure, Year, and Place: n/a - Family History Known Family History: Positive: Cardiac Disease - Not immediate family, uncle, Hypertension - Social History Occupation: Unemployed Lives: With Family Alcohol Use: Occasionally Alcohol Amount: TWICE/WEEK Substance Use Type: Marijuana Substance Use Comment - Amount & Last Used: daily Smoking Status (MU): Current Some Day Smoker Type: Cigarettes Amount Used/How Often: 1/2 pp day Length of Time of Smoking/Using Tobacco: 9 years Have You Smoked in the Last Year: No When Did the Patient Quit Smoking/Using Tobacco: 06/2013 Household Exposure Type: Cigarettes - Immunization History Most Recent Influenza Vaccination: about 2 months ago Most Recent Tetanus Shot: 11/25/13 Most Recent Pneumonia Vaccination: never Review of Systems Constitutional: Fever, Chills, Fatigue Skin: Negative Eyes: Negative ENT: Sore Throat Respiratory: Negative Cardiovascular: Negative Gastrointestinal: Negative Genitourinary: Negative Motor: Negative Neurovascular: Negative Musculoskeletal: Negative Neurological: Negative Psychological: Negative Is Patient Immunocompromised?: No All Other Systems Reviewed And Are Negative: Yes Physical Exam Triage Information Reviewed: Yes Appearance: No Pain Distress, Well-Nourished, Ill-Appearing - mild Vital Signs: Initial Vital Signs Temp 98.8 F 11/29/17 12:23 Pulse 95 11/29/17 12:23 Resp 12 11/29/17 12:23 BP 118/75 11/29/17 12:23 Pulse Ox 97 11/29/17 12:23 Vital Signs Reviewed: Yes Eye Exam: Normal Eyes: Positive: Conjunctiva Clear ENT Exam: Normal ENT: Positive: Normal ENT inspection, Hearing grossly normal, Pharynx normal, TMs normal, Uvula midline. Negative: Nasal congestion, Nasal drainage, Tonsillar swelling, Tonsillar exudate, Trismus, Muffled voice, Hoarse voice, Dental tenderness, Sinus tenderness Dental Exam: Normal Neck exam: Normal Neck: Positive: Supple, Nontender, No Lymphadenopathy Respiratory Exam: Normal Respiratory: Positive: Chest non-tender, Lungs clear, Normal breath sounds, No respiratory distress, No accessory muscle use Cardiovascular Exam: Normal Cardiovascular: Positive: RRR, No Murmur, Pulses Normal, Brisk Capillary Refill Musculoskeletal Exam: Normal Musculoskeletal: Positive: Strength Intact, ROM Intact, No Edema Neurological Exam: Normal Neurological: Positive: Alert, Muscle Tone Normal Psychological Exam: Normal Skin Exam: Normal Diagnostics - Laboratory Diagnostic Studies Completed/Ordered: UA no evidence of infection, RST, Influenza A/B (-), U Preg (+) Throat Pain/Nasal Course/Dx - Course Assessment/Plan: Increase fluids, tylenol, rest follow with pcp /in 1 week - Differential Dx/Diagnosis Provider Diagnoses: Viral illness, Discharge - Discharge Plan Condition: Stable Disposition: HOME Patient Education Materials: (ED), Pharyngitis (ED), Viral Syndrome ( ED) Forms: *Work Release Referrals: [facility] [Provider Group] - 2 Weeks [facility] [Outside] - 1 Week Ina Bowers MD [Primary Care Provider] -
== END 2017-11-29 13:29 | disposition home or self-care (01) ==
LOC: UCEAST 12:17
DX: O98.519 Other viral diseases complicating pregnancy, unspecified trimester (principal); B34.9 Viral infection, unspecified; Z3A.00 Weeks of gestation of pregnancy not specified; Z88.1 Allergy status to other antibiotic agents; Z88.8 Allergy status to other drugs, medicaments and biological substances; Z87.891 Personal history of nicotine dependence
CPT/HCPCS: 81003; 84702; 87502; 87651; 99212; A9270-GY; G0463

== ENCOUNTER 2018-02-06 14:51 | Emergency (ER) | payer OTHER ==
[2018-02-06] MEDS ORDERED: Ketorolac INJ* 30 MG/ML 1 ML VIAL IV ONE (15:09)
[2018-02-06] MEDS ORDERED: Aspirin 81 mg CHEW TAB* 81 MG TAB.CHEW PO ONE (15:09)
[2018-02-06] MEDS ORDERED: NS 0.9% 1000 ML* 1,000 ML IV ONE (15:09)
[2018-02-06] MEDS ORDERED: LORazepam INJ* 2 MG/ML 1 ML VIAL IV PUSH ONE (15:12)
[2018-02-06 15:38] LABS: ABS Basophils 0.1 10^3/ul (0-0.2); ABS Eosinophils 0 10^3/ul (0-0.6); ABS Lymphocytes 3.1 10^3/ul (1.0-4.8); ABS Monocytes 0.8 10^3/ul (0-0.8); ABS Neutrophils 6.6 10^3/ul (1.5-7.7); ABS Nucleated RBC 0 10^3/ul; Eosinophil % 0.4 % (0-6); Hematocrit 42 % (35-47); Hemoglobin 14.6 g/dl (12.0-16.0); Mean Corpuscular HGB Conc 35 g/dl (31-36); Mean Corpuscular Hemoglobin 32 pg (27-31); Mean Corpuscular Volume 93 fL (80-97); Nucleated Red Blood Cells % 0; Platelet Count 305 10^3/ul (150-450); Red Blood Count 4.58 10^6/ul (4.0-5.4); Red Cell Distribution Width 12 % (10.5-15); White Blood Count 10.6 10^3/ul (3.5-10.8)
[2018-02-06 16:04] LABS: EGFR Non-African American 103.7 (>60)
--- NOTE | 2018-02-06 16:33 | RAD ---
HISTORY: Chest pain COMPARISONS: June 27, 2017 VIEWS: 1: frontal portable view of the chest at 3:11 PM FINDINGS: LINES AND TUBES: None. CARDIOMEDIASTINAL SILHOUETTE: The cardiomediastinal silhouette is normal for portable technique. PLEURA: The costophrenic angles are sharp. No pleural abnormalities are noted. LUNG PARENCHYMA: The lungs are clear. ABDOMEN: The upper abdomen is clear. There is no subphrenic gas. BONES AND SOFT TISSUES: No bone or soft tissue abnormalities are noted. IMPRESSION: NO ACTIVE CARDIOPULMONARY DISEASE.
[2018-02-06 17:12] VITALS: BP 128/88
--- NOTE | 2018-02-06 17:53 | ED ---
Rohith Tomlin Angela, scribed for Kaiser Francois MD on 02/06/18 at 1510 . HPI Chest Pain - HPI Summary HPI Summary: This pt is a 27 y/o female presenting to [facility] c/o chest pain upon waking up this morning. Pt reports her chest pain woke her up this morning and has been worsening through the day. Her chest pain is exacerbated with deep breaths. Pt reports her subjective fever, but she has not taken her temperature. Denies runny nose, cough, sinus congestion. Additionally she notes she has not been sleeping well for the past few days. Pt had a recent 1 month ago. Denies current vaginal bleeding. She reports anxiety and mental health issues related to this recent . PMHx: HTN in , pre-eclampsia (4 years ago). Denies hx of cardiac disease. She is a current smoker. Pt admits to marijuana use this morning from a bowl and cocaine use. Denies any other drug use. Pt is not on any control pills. - History of Current Complaint Time Seen by Provider: 02/06/18 14:56 Hx Obtained From: Patient Hx Last Menstrual Period: 10/22/17 Onset/Duration: Started Hours Ago, Still Present Timing: Lasting Hours Current Severity: Moderate Pain Intensity: 6 Pain Scale Used: 0-10 Numeric Chest Pain Location: Diffuse Chest Pain Radiates: No Aggravating Factor(s): Deep Breaths Alleviating Factor(s): Nothing Associated Signs and Symptoms: Positive: Chest Pain, Fever - subjective. Negative: Shortness of Breath, URI - Allergy/Home Medications Allergies/Adverse Reactions: Allergies Allergy/AdvReac Type Severity Reaction Status Date / Time diphenhydramine Allergy Flushing Verified 11/29/17 12:27 [From Benadryl] Penicillins Allergy Hives Verified 11/29/17 12:26 Sulfa (Sulfonamide Allergy Hives Verified 11/29/17 12:27 Antibiotics) Home Medications: Home Medications Levonorgestrel-Ethin Estradiol [Levonorgestrel/Ethinyl Es] 1 tab PO DAILY [History Confirmed 02/06/18] PMH/Surg Hx/FS Hx/Imm Hx Endocrine/Hematology History: Denies: Hx Diabetes, Hx Thyroid Disease Cardiovascular History: Reports: Hx Hypertension, Other Cardiovascular Problems/ Disorders - pt developed HTN after giving 12 weeks Denies: Hx Congestive Heart Failure Respiratory History: Denies: Hx Asthma, Hx Chronic Obstructive Pulmonary Disease (COPD) GI History: Reports: Other GI Disorders - pt states she has acid reflux after Denies: Hx Ulcer History: Reports: Hx Renal Disease - preeclampsia, Other Problems/ Disorders - pt had preclampsia with protein in urine Neurological History: Reports: Other Neuro Impairments/Disorders - pt c/o dizziness and feeling pressure in head Psychiatric History: Reports: Hx Anxiety, Hx Depression - Surgical History Surgery Procedure, Year, and Place: n/a - Immunization History Date of Tetanus Vaccine: Up to Date Date of Influenza Vaccine: None Infectious Disease History: No Infectious Disease History: Denies: Hx Clostridium Difficile, Hx Hepatitis, Hx Human Immunodeficiency Virus (HIV), Hx of Known/Suspected MRSA, Hx Shingles, Hx Tuberculosis, Hx Known/ Suspected VRE, Hx Known/Suspected VRSA, History Other Infectious Disease, Traveled Outside the [place] in Last 30 Days - Family History Known Family History: Positive: Cardiac Disease - Not immediate family, uncle, Hypertension Negative: Blood Disorder - blood clots - Social History Alcohol Use: Occasionally Alcohol Amount: TWICE/WEEK Substance Use Type: Reports: Marijuana Substance Use Comment - Amount & Last Used: daily Smoking Status (MU): Current Some Day Smoker Type: Cigarettes Amount Used/How Often: 1/2 pp day Length of Time of Smoking/Using Tobacco: 9 years Have You Smoked in the Last Year: No Review of Systems Constitutional: Other - sleep disturbance Positive: Fever - subjective Negative: Nasal Discharge, Other - congestion Positive: Chest Pain Negative: other - vaginal bleeding Positive: Anxious All Other Systems Reviewed And Are Negative: Yes Physical Exam - Summary Physical Exam Summary: Appearance: Well appearing, no pain distress Skin: warm, dry, reflects adequate perfusion Head/face: normal Eyes: EOMI, MANOHAR ENT: normal Neck: supple, non-tender Respiratory: CTA, breath sounds present. Aeration is good throughout. Cardiovascular: RRR, pulses symmetrical. No murmur, rub or gallop. Abdomen: non-tender, soft Bowel: present Musculoskeletal: normal, strength/ROM intact Neuro: normal, sensory motor intact, A&Ox3 Psych: Anxious and tearful Triage Information Reviewed: Yes Vital Signs On Initial Exam: Initial Vitals Temp Pulse Resp BP Pulse Ox 98.9 F 88 16 149/80 95 02/06/18 14:57 02/06/18 14:57 02/06/18 14:57 02/06/18 14:57 02/06/18 14:57 Vital Signs Reviewed: Yes Diagnostics - Vital Signs Vital Signs Temp Pulse Resp BP Pulse Ox 02/06/18 14:57 98.9 F 88 16 149/80 95 - Laboratory Lab Results: Lab Results 02/06/18 02/06/18 02/06/18 Range/Units 15:29 15:29 15:29 WBC 10.6 (3.5-10.8) 10^3/ul RBC 4.58 (4.0-5.4) 10^6/ul Hgb 14.6 (12.0-16.0) g/dl Hct 42 (35-47) % MCV 93 (80-97) fL MCH 32 H (27-31) pg MCHC 35 (31-36) g/dl RDW 12 (10.5-15) % Plt Count 305 (150-450) 10^3/ul MPV 7.0 L (7.4-10.4) um3 Neut % (Auto) 62.0 (38-83) % Lymph % (Auto) 29.0 (25-47) % [place] % (Auto) 8.0 H (0-7) % Eos % (Auto) 0.4 (0-6) % Baso % (Auto) 0.6 (0-2) % Absolute Neuts (auto) 6.6 (1.5-7.7) 10^3/ul Absolute Lymphs (auto) 3.1 (1.0-4.8) 10^3/ul Absolute Monos (auto) 0.8 (0-0.8) 10^3/ul Absolute Eos (auto) 0 (0-0.6) 10^3/ul Absolute Basos (auto) 0.1 (0-0.2) 10^3/ul Absolute Nucleated RBC 0 10^3/ul Nucleated RBC % 0 D-Dimer, Quantitative < 200 (Less Than 230) ng/mL Sodium 138 L (139-145) mmol/L Potassium 3.7 (3.5-5.0) mmol/L Chloride 102 (101-111) mmol/L Carbon Dioxide 25 (22-32) mmol/L Anion Gap 11 (2-11) mmol/L BUN 9 (6-24) mg/dL Creatinine 0.69 (0.51-0.95) mg/dL Est GFR ( Amer) 133.3 (>60) Est GFR (Non-Af Amer) 103.7 (>60) BUN/Creatinine Ratio 13.0 (8-20) Glucose 99 (70-100) mg/dL Lactic Acid (0.5-2.0) mmol/L Calcium 9.7 (8.6-10.3) mg/dL Total Bilirubin 0.50 (0.2-1.0) mg/dL AST 13 (13-39) U/L ALT 9 (7-52) U/L Alkaline Phosphatase 88 (34-104) U/L Total Creatine Kinase 66 (10-223) U/L Troponin I 0.00 (<0.04) ng/mL Total Protein 7.2 (6.4-8.9) g/dL Albumin 4.5 (3.2-5.2) g/dL Globulin 2.7 (2-4) g/dL Albumin/Globulin Ratio 1.7 (1-3) TSH 0.96 (0.34-5.60) mcIU/mL Beta HCG, Quant 0.70 mIU/mL 02/06/18 Range/Units 15:29 WBC (3.5-10.8) 10^3/ul RBC (4.0-5.4) 10^6/ul Hgb (12.0-16.0) g/dl Hct (35-47) % MCV (80-97) fL MCH (27-31) pg MCHC (31-36) g/dl RDW (10.5-15) % Plt Count (150-450) 10^3/ul MPV (7.4-10.4) um3 Neut % (Auto) (38-83) % Lymph % (Auto) (25-47) % [place] % (Auto) (0-7) % Eos % (Auto) (0-6) % Baso % (Auto) (0-2) % Absolute Neuts (auto) (1.5-7.7) 10^3/ul Absolute Lymphs (auto) (1.0-4.8) 10^3/ul Absolute Monos (auto) (0-0.8) 10^3/ul Absolute Eos (auto) (0-0.6) 10^3/ul Absolute Basos (auto) (0-0.2) 10^3/ul Absolute Nucleated RBC 10^3/ul Nucleated RBC % D-Dimer, Quantitative (Less Than 230) ng/mL Sodium (139-145) mmol/L Potassium (3.5-5.0) mmol/L Chloride (101-111) mmol/L Carbon Dioxide (22-32) mmol/L Anion Gap (2-11) mmol/L BUN (6-24) mg/dL Creatinine (0.51-0.95) mg/dL Est GFR ( Amer) (>60) Est GFR (Non-Af Amer) (>60) BUN/Creatinine Ratio (8-20) Glucose (70-100) mg/dL Lactic Acid 0.9 (0.5-2.0) mmol/L Calcium (8.6-10.3) mg/dL Total Bilirubin (0.2-1.0) mg/dL AST (13-39) U/L ALT (7-52) U/L Alkaline Phosphatase (34-104) U/L Total Creatine Kinase (10-223) U/L Troponin I (<0.04) ng/mL Total Protein (6.4-8.9) g/dL Albumin (3.2-5.2) g/dL Globulin (2-4) g/dL Albumin/Globulin Ratio (1-3) TSH (0.34-5.60) mcIU/mL Beta HCG, Quant mIU/mL Result Diagrams: 02/06/18 15:29 02/06/18 15:29 Lab Statement: Any lab studies that have been ordered have been reviewed, and results considered in the medical decision making process. - Radiology Chest XR Xray Interpretation: No Acute Changes - IMPRESSION: No active cardiopulmonary disease. Dr. Francois has reviewed this radiology report. Radiology Interpretation Completed By: Radiologist - EKG 15:34 Cardiac Rate: NL - at 79 bpm EKG Rhythm: Sinus Rhythm ST Segment: Normal EKG Interpretation: Normal axis. Normal intervals. Re-Evaluation - Re-Evaluation First Eval Re-Evaluation Time: 16:25 Change: Improved Comment: Pt feels much better. She will be discharged home. Chest Pain Course/Dx - Course Course Of Treatment: Patient experiencing a lot of anxiety related to her recent . She has had issues with alcohol and also used cocaine recently. She did not develop any chest pain with the cocaine use. However, she did develop it today which is more than 12 hours after using cocaine. Her troponin and EKG are normal. She was treated for anxiety with relief of her symptoms. I will continue her on Pepcid. She is encouraged to stop using cocaine. She was given resources for local drug and alcohol treatment. - Chest Pain Differential Diagnosis/HQI/PQRI: Acute ND, ACS, Angina, GI Disease, Lower Respiratory Infection, Other: - Anxiety, adjustment disorder - Diagnoses Provider Diagnoses: Chest pain, Anxiety reaction, Adjustment disorder Discharge - Sign-Out/Discharge Documenting (check all that apply): Discharge/Admit/Transfer - Discharge to home - Discharge Plan Condition: Good Disposition: HOME Prescriptions: Famotidine TAB* [Pepcid 20 MG TAB*] 20 mg PO BID #30 tab Patient Education Materials: Chest Pain (ED) Forms: *Work Release Referrals: Ina Bowers MD [Primary Care Provider] - Additional Instructions: Do not use drugs, especially cocaine. Ibuprofen as needed. Return with repeat chest pain, difficulty breathing, worse or other concerns as discussed. A list of local facilities that can help with addiction has been provided to you. See her primary care physician next 1-3 days for reevaluation. - Billing Disposition and Condition Condition: GOOD Disposition: HOME The documentation as recorded by the Rohith silva Angela accurately reflects the service I personally performed and the decisions made by , Kaiser Francois MD.
== END 2018-02-06 17:13 | disposition home or self-care (01) ==
LOC: ED 14:51
DX: R07.9 Chest pain, unspecified (principal); F41.9 Anxiety disorder, unspecified; F43.20 Adjustment disorder, unspecified; R50.9 Fever, unspecified
CPT/HCPCS: 36415; 71045; 80053; 82550; 83605; 84443; 84484; 84702; 85025; 85379; 93005; 96374; 96375; 99282; A9270-GY; J1885; J2060

== ENCOUNTER 2018-02-18 09:41 | Emergency (ER) | payer OTHER ==
[2018-02-18] MEDS ORDERED: NS 0.9% 1000 ML* 2,000 ML IV ONE (10:09)
[2018-02-18 10:24] LABS: ABS Basophils 0 10^3/ul (0-0.2); ABS Eosinophils 0.1 10^3/ul (0-0.6); ABS Lymphocytes 1.5 10^3/ul (1.0-4.8); ABS Monocytes 0.7 10^3/ul (0-0.8); ABS Neutrophils 6.3 10^3/ul (1.5-7.7); ABS Nucleated RBC 0 10^3/ul; Eosinophil % 1.3 % (0-6); Hematocrit 29 % (35-47); Hemoglobin 9.9 g/dl (12.0-16.0); Mean Corpuscular HGB Conc 34 g/dl (31-36); Mean Corpuscular Hemoglobin 32 pg (27-31); Mean Corpuscular Volume 94 fL (80-97); Mean Platelet Volume 7.3 um3 (7.4-10.4); Nucleated Red Blood Cells % 0; Platelet Count 193 10^3/ul (150-450); Red Blood Count 3.05 10^6/ul (4.0-5.4); Red Cell Distribution Width 13 % (10.5-15); White Blood Count 8.5 10^3/ul (3.5-10.8)
[2018-02-18 10:33] LABS: INR 0.93 (0.77-1.02)
[2018-02-18 10:41] LABS: EGFR Non-African American 103.7 (>60)
[2018-02-18] MEDS ORDERED: Ondansetron ODT TAB* 4 MG PO ONE (10:41)
[2018-02-18] MEDS ORDERED: Iohexol 300* (CONTRAST) 10 ML SDV IV ONE (10:50)
--- NOTE | 2018-02-18 13:31 | RAD ---
CLINICAL HISTORY: Vomiting, right lower quadrant pain, history of right oophorectomy February 15, 2018 COMPARISON: April 21, 2014 TECHNIQUE: Multiple contiguous axial CT scans were obtained of the abdomen and pelvis after the administration of intravenous contrast. Coronal and sagittal multiplanar reformations are submitted for review. Oral contrast was administered. Delayed images were obtained through the abdomen and pelvis. FINDINGS: LUNG BASES: The lung bases are clear. LIVER: The liver is normal in shape, size, contour, and attenuation. BILE DUCTS: There is no intrahepatic or extrahepatic biliary dilatation. GALLBLADDER: The gallbladder is normal, without pericholecystic inflammatory change. PANCREAS: The pancreas is normal, without mass or ductal dilatation. SPLEEN: Normal in size and appearance. UPPER GI TRACT: Evaluation of the gastrointestinal tract is limited by incomplete gastric distention. The upper GI tract is unremarkable. SMALL BOWEL AND MESENTERY: The small bowel is normal in contour, course, and caliber. There is no obstruction or dilatation. COLON: There is mucosal thickening of the sigmoid colon. There is no pericolonic inflammatory change. The appendix is not clearly visualized. There is no inflammatory change within the right lower quadrant. ADRENALS: Normal bilaterally. KIDNEYS: The kidneys are normal in shape, size, contour, and axis. There is no hydronephrosis or nephrolithiasis. BLADDER: The bladder is smooth in contour. PELVIC ORGANS: The uterus and adnexa are grossly normal for technique. The right ovary is not clearly visualized consistent with history of oophorectomy. AORTA: The aorta is normal. IVC: Unremarkable LYMPH NODES: There is no lymphadenopathy by size criteria. ABDOMINAL WALL: There is no evidence for abdominal wall hernia. BONES AND SOFT TISSUES: Unremarkable OTHER: There is free intraperitoneal gas. There is a small amount of free fluid within the pelvic cul-de-sac. IMPRESSION: 1. FREE INTRAPERITONEAL GAS IS SMALL AMOUNT OF FREE FLUID WITHIN THE PELVIC CUL-DE-SAC. THIS MAY BE POSTSURGICAL GIVEN THE HISTORY OF RECENT OOPHORECTOMY. 2. THERE IS A COASTAL THICKENING OF THE DISTAL COLON. WHILE THIS MAY BE AN ARTIFACT OF INCOMPLETE DISTENTION, COLITIS IS ALSO WITHIN THE DIFFERENTIAL. 3. THE APPENDIX IS NOT CLEARLY VISUALIZED. THERE IS NO APPRECIABLE INFILTRATE CHANGE WITHIN THE RIGHT LOWER QUADRANT. 4. PRELIMINARY FINDINGS WERE DISCUSSED WITH DR. MONTEZ AT APPROXIMATELY 1:26 PM ON FEBRUARY 18, 2018.
--- NOTE | 2018-02-18 14:10 | ED ---
Brianda Tomlin Thomas, scribed for Skinny Gaspar MD on 02/18/18 at 1043 . Abdominal Pain/Female - HPI Summary HPI Summary: The patient is a 27 year old female who began to develop abdominal pain four days ago. Three days ago, she went to [place] ED, where she was noted to have an ovarian torsion on the right side. Her right ovary was removed and she was admitted to the hospital. She was discharged two days ago. One day ago, she began to have some abdominal pain concentrated in her RLQ. This morning, she woke up at 09:00 and had vomiting with some blood noted. She reports passing some gas this morning, and she denies abdominal bloating. She last ate last night. The patient also complains of some vaginal spotting. The patient denies fevers. - History of Current Complaint Chief Complaint: EDAbdPain Stated Complaint: ABD PAIN Time Seen by Provider: 02/18/18 10:26 Hx Obtained From: Patient Hx Last Menstrual Period: 10/22/17 Onset/Duration: Lasting Days, Still Present Severity Currently: Moderate Pain Intensity: 5 Pain Scale Used: 0-10 Numeric Location: Discrete At: RLQ Radiates: No Aggravating Factor(s): Nothing Alleviating Factor(s): Nothing Associated Signs and Symptoms: Positive: Other: - Vomiting, abdominal pain, vaginal spotting; NEGATIVE: fevers Allergies/Adverse Reactions: Allergies Allergy/AdvReac Type Severity Reaction Status Date / Time diphenhydramine Allergy Flushing Verified 11/29/17 12:27 [From Benadryl] Penicillins Allergy Hives Verified 11/29/17 12:26 Sulfa (Sulfonamide Allergy Hives Verified 11/29/17 12:27 Antibiotics) Home Medications: Home Medications Ferrous Sulfate TAB* 325 mg PO DAILY 02/18/18 [History Confirmed 02/18/18] oxyCODONE/Acetamin 5/325 MG* [Percocet 5/325 TAB*] 1 tab PO Q6H PRN 02/18/18 [ History Confirmed 02/18/18] PMH/Surg Hx/FS Hx/Imm Hx Endocrine/Hematology History: Denies: Hx Diabetes, Hx Thyroid Disease Cardiovascular History: Reports: Hx Hypertension, Other Cardiovascular Problems/ Disorders - pt developed HTN after giving 12 weeks Denies: Hx Congestive Heart Failure Respiratory History: Denies: Hx Asthma, Hx Chronic Obstructive Pulmonary Disease (COPD) GI History: Reports: Other GI Disorders - pt states she has acid reflux after Denies: Hx Ulcer History: Reports: Hx Renal Disease - preeclampsia, Other Problems/ Disorders - pt had preclampsia with protein in urine Neurological History: Reports: Other Neuro Impairments/Disorders - pt c/o dizziness and feeling pressure in head Psychiatric History: Reports: Hx Anxiety, Hx Depression - Surgical History Surgery Procedure, Year, and Place: n/a - Immunization History Date of Tetanus Vaccine: Up to Date Date of Influenza Vaccine: None Infectious Disease History: No Infectious Disease History: Denies: Hx Clostridium Difficile, Hx Hepatitis, Hx Human Immunodeficiency Virus (HIV), Hx of Known/Suspected MRSA, Hx Shingles, Hx Tuberculosis, Hx Known/ Suspected VRE, Hx Known/Suspected VRSA, History Other Infectious Disease, Traveled Outside the in Last 30 Days - Family History Known Family History: Positive: Cardiac Disease - Not immediate family, uncle, Hypertension Negative: Blood Disorder - blood clots - Social History Alcohol Use: Occasionally Alcohol Amount: TWICE/WEEK Substance Use Type: Reports: Marijuana Substance Use Comment - Amount & Last Used: daily Smoking Status (MU): Current Some Day Smoker Type: Cigarettes Amount Used/How Often: 1/2 pp day Length of Time of Smoking/Using Tobacco: 9 years Have You Smoked in the Last Year: No Review of Systems Negative: Fever Positive: Abdominal Pain, Vomiting Positive: other - Vaginal spotting All Other Systems Reviewed And Are Negative: Yes Physical Exam - Summary Physical Exam Summary: General: well-appearing, mild pain distress Skin: warm, color reflects adequate perfusion, dry Head: normal Eyes: EOMI, MANOHAR ENT: Dry oral mucosa. Neck: supple, nontender Respiratory: CTA, breath sounds present Cardiovascular: RRR Abdomen: Mild tenderness to the right flank. There is some diffuse lower abdominal tenderness, worse in the right than the left. She has three laparoscopic incision sties on the lower abdomen, and there is not any drainage or erythema. There is some ecchymosis about the umbilicus. Soft. Bowel: present Musculoskeletal: normal, strength/ROM intact Neurological: normal, sensory/motor intact, A&O x3 Psychological: affect/mood appropriate Triage Information Reviewed: Yes Vital Signs On Initial Exam: Initial Vitals Pulse BP Pulse Ox 104 126/77 100 02/18/18 09:45 02/18/18 09:45 02/18/18 09:45 Vital Signs Reviewed: Yes Diagnostics - Vital Signs Vital Signs Temp Pulse Resp BP Pulse Ox 02/18/18 10:00 82 99 02/18/18 09:46 98.1 F 94 13 126/77 100 02/18/18 09:45 104 126/77 100 - Laboratory Lab Results: Lab Results 02/18/18 02/18/18 02/18/18 Range/Units 10:14 10:14 10:14 WBC 8.5 (3.5-10.8) 10^3/ul RBC 3.05 L (4.0-5.4) 10^6/ul Hgb 9.9 L (12.0-16.0) g/dl Hct 29 L (35-47) % MCV 94 (80-97) fL MCH 32 H (27-31) pg MCHC 34 (31-36) g/dl RDW 13 (10.5-15) % Plt Count 193 (150-450) 10^3/ul MPV 7.3 L (7.4-10.4) um3 Neut % (Auto) 73.4 (38-83) % Lymph % (Auto) 17.0 L (25-47) % [place] % (Auto) 7.9 H (0-7) % Eos % (Auto) 1.3 (0-6) % Baso % (Auto) 0.4 (0-2) % Absolute Neuts (auto) 6.3 (1.5-7.7) 10^3/ul Absolute Lymphs (auto) 1.5 (1.0-4.8) 10^3/ul Absolute Monos (auto) 0.7 (0-0.8) 10^3/ul Absolute Eos (auto) 0.1 (0-0.6) 10^3/ul Absolute Basos (auto) 0 (0-0.2) 10^3/ul Absolute Nucleated RBC 0 10^3/ul Nucleated RBC % 0 INR (Anticoag Therapy) 0.93 (0.77-1.02) APTT 37.1 H (26.0-36.3) seconds Lactic Acid 0.7 (0.5-2.0) mmol/L Result Diagrams: 02/18/18 10:14 02/18/18 10:14 Lab Statement: Any lab studies that have been ordered have been reviewed, and results considered in the medical decision making process. Abdominal Pain Fem Course/Dx - Course Course Of Treatment: Medications reviewed. Allergies noted. DISCUSSED RESULTS WITH THE PATIENT AND . THE BLOOD IN THE EMESIS STARTED AFTER RETCHING AND IT WAS STEAKS OF BLOOD. THE NAUSEA IS BETTER IN THE ED AFTER IVF AND ZOFRAN. THE LOWER ABD PAIN IS THE SAME IT HAS BEEN SINCE THE RT OOPHORECTOMY ON 02/15/18. NO FEVER. F/U WITH HER PMD AND HER SURGEON; RETURN IF WORSE. - Diagnoses Provider Diagnoses: Abdominal pain, Vomiting Discharge - Sign-Out/Discharge Documenting (check all that apply): Discharge/Admit/Transfer - Discharge Plan Condition: Stable Disposition: HOME Prescriptions: Omeprazole CAP* [Prilosec CAP* 20 MG] 20 mg PO BID #30 cap. Ondansetron ODT TAB* [Zofran 4 MG Odt TAB*] 4 mg PO Q6H PRN #15 tab.odt PRN Reason: Nausea Patient Education Materials: Acute Nausea and Vomiting (ED), Abdominal Pain (ED ) Forms: *Work Release Referrals: Ina Bowers MD [Primary Care Provider] - Additional Instructions: FOLLOW UP WITH YOUR PRIMARY CARE DOCTOR AND SURGEON. RETURN TO THE EMERGENCY DEPARTMENT FOR ANY WORSENING OF YOUR CONDITION; PAIN, FEVER, YOU FEEL ILL, BLOOD IN YOUR VOMIT OR STOOL OR QUESTIONS OR CONCERNS. - Billing Disposition and Condition Condition: STABLE Disposition: HOME The documentation as recorded by the Brinada silva Thomas accurately reflects the service I personally performed and the decisions made by me, Skinny Gaspar MD.
[2018-02-18 14:23] VITALS: BP 132/92
== END 2018-02-18 14:22 | disposition home or self-care (01) ==
LOC: ED 09:41
DX: R10.31 Right lower quadrant pain (principal); K92.0 Hematemesis; F17.210 Nicotine dependence, cigarettes, uncomplicated; Z90.721 Acquired absence of ovaries, unilateral; Z88.0 Allergy status to penicillin; Z88.2 Allergy status to sulfonamides
CPT/HCPCS: 36415; 74177; 80053; 83605; 84702; 85025; 85610; 85730; 86140; 96360; 96361; 99282; A9270-GY; Q9967

== ENCOUNTER 2018-04-11 00:06 | Emergency (ER) | payer OTHER ==
[2018-04-11] MEDS ORDERED: LORazepam INJ* 2 MG/ML 1 ML VIAL IV PUSH ONE (00:31)
[2018-04-11 02:53] VITALS: BP 124/70
--- NOTE | 2018-04-11 04:53 | ED ---
Sharon Tomlin SooYoung, scribed for Silvia Ambrosio MD on 04/11/18 at 0031 . 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 Pt smoked K2, synthetic marijuana at 0 on 04/10/18. Associated sx: generalized body pain, hot flashes, tearful. At bedside, pt states she is feeling better. She is out-patient at [facility]. Pt takes Celexa for depression and anxiety. - History Of Current Complaint Chief Complaint: EDSubstanceAbuse Stated Complaint: CHEST PAIN Time Seen by Provider: 04/11/18 00:28 Hx Obtained From: Patient Hx Last Menstrual Period: 10/22/17 Ingestion History: Type/Name Of Drug - K2, Approximate Time Of Ingestion - 2129 Severity Initially: Moderate Severity Currently: Moderate Character: Anxious Associated Signs And Symptoms: Other: - hot flashes; generalized body pains; tearful - Allergies/Home Medications Allergies/Adverse Reactions: Allergies Allergy/AdvReac Type Severity Reaction Status Date / Time diphenhydramine Allergy Flushing Verified 04/11/18 00:30 [From Benadryl] Penicillins Allergy Hives Verified 04/11/18 00:30 Sulfa (Sulfonamide Allergy Hives Verified 04/11/18 00:30 Antibiotics) PMH/Surg Hx/FS Hx/Imm Hx Previously Healthy: No Endocrine/Hematology History: Denies: Hx Diabetes, Hx Thyroid Disease Cardiovascular History: Reports: Hx Hypertension, Other Cardiovascular Problems/ Disorders - pt developed HTN after giving 12 weeks Denies: Hx Congestive Heart Failure Respiratory History: Denies: Hx Asthma, Hx Chronic Obstructive Pulmonary Disease (COPD) GI History: Reports: Other GI Disorders - pt states she has acid reflux after Denies: Hx Ulcer History: Reports: Hx Renal Disease - preeclampsia, Other Problems/ Disorders - pt had preclampsia with protein in urine Neurological History: Reports: Other Neuro Impairments/Disorders - pt c/o dizziness and feeling pressure in head Psychiatric History: Reports: Hx Anxiety, Hx Depression - Surgical History Surgery Procedure, Year, and Place: n/a - Immunization History Date of Tetanus Vaccine: Up to Date Date of Influenza Vaccine: None Infectious Disease History: No Infectious Disease History: Denies: Hx Clostridium Difficile, Hx Hepatitis, Hx Human Immunodeficiency Virus (HIV), Hx of Known/Suspected MRSA, Hx Shingles, Hx Tuberculosis, Hx Known/ Suspected VRE, Hx Known/Suspected VRSA, History Other Infectious Disease, Traveled Outside the [place] in Last 30 Days - Family History Known Family History: Positive: Cardiac Disease - Not immediate family, uncle, Hypertension Negative: Blood Disorder - blood clots - Social History Occupation: Employed Full-time Lives: Alone Alcohol Use: Occasionally Alcohol Amount: TWICE/WEEK Hx Substance Use: Yes Substance Use Type: Reports: Marijuana Substance Use Comment - Amount & Last Used: daily Hx Tobacco Use: Yes Smoking Status (MU): Current Some Day Smoker Type: Cigarettes Amount Used/How Often: 1/2 pp day Length of Time of Smoking/Using Tobacco: 9 years Have You Smoked in the Last Year: No Review of Systems Positive: Other - hot flashes, tearful, generalized body pain. Negative: Fever Positive: Anxious All Other Systems Reviewed And Are Negative: Yes Physical Exam - Summary Physical Exam Summary: VITAL SIGNS: Reviewed. GENERAL: Patient is a well-developed and nourished FEMALE who is lying comfortable in the stretcher. Patient is not in any acute respiratory distress. HEAD AND FACE: No signs of trauma. No ecchymosis, hematomas or skull depressions. No sinus tenderness. EYES: PERRLA, EOMI x 2, No injected conjunctiva, no nystagmus. EARS: Hearing grossly intact. Ear canals and tympanic membranes are within normal limits. MOUTH: Oropharynx within normal limits. NECK: Supple, trachea is midline, no adenopathy, no JVD, no carotid bruit, no c- spine tenderness, neck with full ROM. CHEST: Symmetric, no tenderness at palpation LUNGS: Clear to auscultation bilaterally. No wheezing or crackles. CVS: Regular rate and rhythm, S1 and S2 present, no murmurs or gallops appreciated. ABDOMEN: Soft, non-tender. No signs of distention. No rebound no guarding, and no masses palpated. Bowel sounds are normal. EXTREMITIES: FROM in all major joints, no edema, no cyanosis or clubbing. NEURO: Alert and oriented x 3. No acute neurological deficits. Speech is normal and follows commands. SKIN: Dry and warm Triage Information Reviewed: Yes Vital Signs On Initial Exam: Initial Vitals Temp Pulse Resp BP Pulse Ox 99.0 F 78 20 132/74 99 04/11/18 00:06 04/11/18 00:06 04/11/18 00:06 04/11/18 00:06 04/11/18 00:06 Vital Signs Reviewed: Yes Diagnostics - Vital Signs Vital Signs Temp Pulse Resp BP Pulse Ox 04/11/18 00:06 99.0 F 78 20 132/74 99 - Laboratory Lab Statement: Any lab studies that have been ordered have been reviewed, and results considered in the medical decision making process. 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 Pt smoked K2, synthetic marijuana at 2130 on 04/10/18. Associated sx: generalized body pain, hot flashes, tearful. At bedside, pt states she is feeling better. She is out-patient at [facility]. Pt takes Celexa for depression and anxiety. - Diagnoses Provider Diagnoses: Anxiety Discharge - Sign-Out/Discharge Documenting (check all that apply): Discharge/Admit/Transfer - DC - Discharge Plan Condition: Stable Disposition: HOME Patient Education Materials: Cannabis Abuse (ED) Referrals: Ina Bowers MD [Primary Care Provider] - Additional Instructions: RETURN TO THE EMERGENCY DEPARTMENT FOR CHANGING OR WORSENING SYMPTOMS. - Billing Disposition and Condition Condition: STABLE Disposition: Home The documentation as recorded by the Sharon silva SooYoung accurately reflects the service I personally performed and the decisions made by me, Silvia Ambrosio MD.
== END 2018-04-11 02:51 | disposition home or self-care (01) ==
LOC: ED 00:06
DX: F41.9 Anxiety disorder, unspecified (principal); F32.9 Major depressive disorder, single episode, unspecified; I10 Essential (primary) hypertension; F17.210 Nicotine dependence, cigarettes, uncomplicated
CPT/HCPCS: 93005; 99282; J2060

== ENCOUNTER 2018-06-03 10:52 | Emergency (ER) | payer MEDICAID ==
[2018-06-03 11:31] VITALS: BP 136/85
--- NOTE | 2018-06-03 11:51 | UC ---
Dental HPI - HPI Summary HPI Summary: right upper incisor removed last week---now has worsening pain and swelling in right upper jaw--subjective fever - History of Current Complaint Chief Complaint: UCDentalProblem Stated Complaint: FEVER DENTAL COMPLAINT Time Seen by Provider: 06/03/18 11:45 Hx Obtained From: Patient Hx Last Menstrual Period: 06/03/18 ?: No Onset/Duration: Sudden Onset Pain Intensity: 9 Pain Scale Used: 0-10 Numeric Aggravating Factor(s): Nothing Alleviating Factor(s): Nothing Related History: Previous Dental Care on Same Tooth, Swelling - Allergies/Home Medications Allergies/Adverse Reactions: Allergies Allergy/AdvReac Type Severity Reaction Status Date / Time diphenhydramine Allergy Flushing Verified 04/11/18 00:30 [From Benadryl] Penicillins Allergy Hives Verified 04/11/18 00:30 Sulfa (Sulfonamide Allergy Hives Verified 04/11/18 00:30 Antibiotics) Home Medications: Home Medications Acetaminophen [Tylophen] 1,000 mg PO Q8H 06/03/18 [History Confirmed 06/03/18] Ibuprofen 600 mg PO Q4H 06/03/18 [History Confirmed 06/03/18] clonazePAM TAB(*) [Klonopin TAB(*)] 0.5 mg PO DAILY 06/03/18 [History Confirmed 06/03/18] PMH/Surg Hx/FS Hx/Imm Hx Previously Healthy: No - substance abuse disorder in early remission Psychological History: Anxiety, Depression - Surgical History Surgical History: None Surgery Procedure, Year, and Place: RIGHT OOPHERECTOMY - Family History Known Family History: Positive: Cardiac Disease - Not immediate family, uncle, Hypertension Negative: Blood Disorder - blood clots - Social History Occupation: Unemployed Lives: With Family Alcohol Use: Occasionally Alcohol Amount: TWICE/WEEK Substance Use Type: Marijuana Substance Use Comment - Amount & Last Used: daily Smoking Status (MU): Current Some Day Smoker Type: Cigarettes Amount Used/How Often: 1/2 pp day Length of Time of Smoking/Using Tobacco: 9 years Have You Smoked in the Last Year: No When Did the Patient Quit Smoking/Using Tobacco: 06/2013 Household Exposure Type: Cigarettes - Immunization History Most Recent Influenza Vaccination: about 2 months ago Most Recent Tetanus Shot: 11/25/13 Most Recent Pneumonia Vaccination: never Review of Systems Constitutional: Negative Skin: Negative Eyes: Negative ENT: Dental Pain, Ear Ache - right Respiratory: Negative Cardiovascular: Negative Gastrointestinal: Negative Genitourinary: Negative Motor: Negative Neurovascular: Negative Musculoskeletal: Negative Neurological: Negative Psychological: Negative Is Patient Immunocompromised?: No All Other Systems Reviewed And Are Negative: Yes Physical Exam Triage Information Reviewed: Yes Appearance: Well-Appearing, No Pain Distress, Well-Nourished Vital Signs: Initial Vital Signs Temp 98.5 F 06/03/18 11:23 Pulse 74 06/03/18 11:23 Resp 16 06/03/18 11:23 BP 136/85 06/03/18 11:23 Pulse Ox 100 06/03/18 11:23 Vital Signs Reviewed: Yes Eye Exam: Normal Eyes: Positive: Conjunctiva Clear ENT Exam: Normal ENT: Positive: Normal ENT inspection, Hearing grossly normal, Pharynx normal, TMs normal, Dental tenderness, Uvula midline. Negative: Nasal congestion, Tonsillar swelling, Tonsillar exudate, Trismus, Muffled voice, Hoarse voice, Sinus tenderness Dental Exam: Normal Dental: Positive: Other: - s/p dental extraction right upper incisor Neck exam: Normal Neck: Positive: Supple, Nontender Respiratory Exam: Normal Respiratory: Positive: Chest non-tender, No respiratory distress, No accessory muscle use Cardiovascular Exam: Normal Cardiovascular: Positive: RRR, Pulses Normal, Brisk Capillary Refill Musculoskeletal Exam: Normal Musculoskeletal: Positive: Strength Intact, ROM Intact, No Edema Neurological Exam: Normal Neurological: Positive: Alert, Muscle Tone Normal Psychological Exam: Normal Skin Exam: Normal Dental Complaint Course/Dx - Course Course Of Treatment: clindamycin, nicotine cesasation information, warm water rinces follow with pcp/dentist prn - Differential Dx/Diagnosis Provider Diagnoses: dental pain s/p extraction with infection, nicotine dependant Discharge - Sign-Out/Discharge Documenting (check all that apply): Patient Departure All imaging exams completed and their final reports reviewed: No Studies - Discharge Plan Condition: Stable Disposition: HOME Prescriptions: Clindamycin Cap(NF) [Clindamycin Cap 300 mg Cap(NF)] 300 mg PO Q6H #40 cap Patient Education Materials: How to Stop Smoking (ED), Dental Abscess (ED) Forms: *Gen. Provider Communication Referrals: Ina Bowers MD [Primary Care Provider] - If Needed - Billing Disposition and Condition Condition: STABLE Disposition: Home
== END 2018-06-03 12:00 | disposition home or self-care (01) ==
LOC: UCCORT 10:52
DX: T81.4XXA Infection following a procedure, initial encounter (principal); Y84.8 Other medical procedures as the cause of abnormal reaction of the patient, or of later complication, without mention of misadventure at the time of the procedure; Y92.9 Unspecified place or not applicable; K08.89 Other specified disorders of teeth and supporting structures; F17.210 Nicotine dependence, cigarettes, uncomplicated; Z88.8 Allergy status to other drugs, medicaments and biological substances; Z88.0 Allergy status to penicillin; Z88.2 Allergy status to sulfonamides; F32.9 Major depressive disorder, single episode, unspecified; F41.9 Anxiety disorder, unspecified; Z79.899 Other long term (current) drug therapy
CPT/HCPCS: 99212; G0463

== ENCOUNTER 2018-07-29 09:57 | Emergency (ER) | payer OTHER ==
[2018-07-29] MEDS ORDERED: Albuterol HFA INHALER* 8 gm MDI INH ONE (11:40)
[2018-07-29] MEDS ORDERED: guaiFENesin ER TAB 600 MG PO ONE (11:42)
[2018-07-29 11:52] LABS: ABS Basophils 0 10^3/ul (0-0.2); ABS Eosinophils 0 10^3/ul (0-0.6); ABS Lymphocytes 2.2 10^3/ul (1.0-4.8); ABS Monocytes 0.4 10^3/ul (0-0.8); ABS Neutrophils 4.3 10^3/ul (1.5-7.7); ABS Nucleated RBC 0 10^3/ul; Eosinophil % 0.6 % (0-6); Hematocrit 40 % (35-47); Lymphocyte % 32.1 % (25-47); Mean Corpuscular HGB Conc 35 g/dl (31-36); Mean Corpuscular Hemoglobin 32 pg (27-31); Mean Corpuscular Volume 92 fL (80-97); Mean Platelet Volume 7.3 um3 (7.4-10.4); Nucleated Red Blood Cells % 0; Platelet Count 249 10^3/ul (150-450); Red Blood Count 4.37 10^6/ul (4.00-5.40); Red Cell Distribution Width 13 % (10.5-15)
[2018-07-29 12:09] LABS: EGFR Non-African American 96.4 (>60)
--- NOTE | 2018-07-29 12:49 | ED ---
Respiratory - HPI Summary HPI Summary: Patient is a 28-year-old female presenting to the ED with 2 day history of worsening cough, congestion, sinus pressure, headache and diffuse myalgias. She states she was seen in the urgent care but not given any medications. She was diagnosed with a viral syndrome. She denies any known fevers, however is endorsing sweats and chills. Denies any chest pain. Endorses some shortness of breath with cough. She denies any sick contacts or sore throat. Cough with production of yellow-green sputum. - History of Current Complaint Chief Complaint: EDFluSymptoms Stated Complaint: SOB Time Seen by Provider: 07/29/18 11:29 Hx Obtained From: Patient Onset/Duration: Gradual Onset Timing: Constant Initial Severity: Moderate Current Severity: Moderate Pain Intensity: 0 Character: Wheezing Sputum Color: Yellow, Green Aggravating Factor(s): Nothing Alleviating Factor(s): Nothing Associated Signs and Symptoms: Negative - Risk Factors Status Asthmaticus Risk Factors: Smoking Pulmonary Embolism Risk Factors: Smoking Cardiac Risk Factors: Smoking Pseudomonas Risk Factors: Negative Tuberculosis Risk Factors: Smoking - Allergy/Home Medications Allergies/Adverse Reactions: Allergies Allergy/AdvReac Type Severity Reaction Status Date / Time diphenhydramine Allergy Flushing Verified 07/29/18 10:01 [From Benadryl] Penicillins Allergy Hives Verified 07/29/18 10:01 Sulfa (Sulfonamide Allergy Hives Verified 07/29/18 10:01 Antibiotics) Home Medications: Home Medications LORazepam [Lorazepam] 1 mg PO BID 07/29/18 [History Confirmed 07/29/18] PMH/Surg Hx/FS Hx/Imm Hx Previously Healthy: Yes Endocrine/Hematology History: Denies: Hx Diabetes, Hx Thyroid Disease Cardiovascular History: Reports: Hx Hypertension, Other Cardiovascular Problems/ Disorders - pt developed HTN after giving 12 weeks Denies: Hx Congestive Heart Failure Respiratory History: Denies: Hx Asthma, Hx Chronic Obstructive Pulmonary Disease (COPD) GI History: Reports: Other GI Disorders - pt states she has acid reflux after Denies: Hx Ulcer History: Reports: Hx Renal Disease - preeclampsia, Other Problems/ Disorders - pt had preclampsia with protein in urine Neurological History: Reports: Other Neuro Impairments/Disorders - pt c/o dizziness and feeling pressure in head Psychiatric History: Reports: Hx Anxiety, Hx Depression - Surgical History Surgery Procedure, Year, and Place: RIGHT OOPHERECTOMY - Immunization History Date of Tetanus Vaccine: Up to Date Date of Influenza Vaccine: None Hx Pertussis Vaccination: No Immunizations Up to Date: Yes Infectious Disease History: No Infectious Disease History: Denies: Hx Clostridium Difficile, Hx Hepatitis, Hx Human Immunodeficiency Virus (HIV), Hx of Known/Suspected MRSA, Hx Shingles, Hx Tuberculosis, Hx Known/ Suspected VRE, Hx Known/Suspected VRSA, History Other Infectious Disease, Traveled Outside the [place] in Last 30 Days - Family History Known Family History: Positive: Cardiac Disease - Not immediate family, uncle, Hypertension Negative: Blood Disorder - blood clots - Social History Occupation: Employed Full-time Lives: With Family Alcohol Use: Occasionally Alcohol Amount: TWICE/WEEK Hx Substance Use: Yes Substance Use Type: Reports: Marijuana Substance Use Comment - Amount & Last Used: daily Hx Tobacco Use: Yes Smoking Status (MU): Current Some Day Smoker Type: Cigarettes Amount Used/How Often: 1/2 pp day Length of Time of Smoking/Using Tobacco: 9 years Have You Smoked in the Last Year: No Review of Systems Constitutional: Negative Negative: Fever, Chills, Fatigue, Skin Diaphoresis Negative: Photophobia, Blurred Vision Negative: Sore Throat Negative: Palpitations, Chest Pain Positive: Shortness Of Breath, Cough Negative: Arthralgia, Myalgia Skin: Negative All Other Systems Reviewed And Are Negative: Yes Physical Exam Triage Information Reviewed: Yes Vital Signs On Initial Exam: Initial Vitals Temp Pulse Resp BP Pulse Ox 97.8 F 97 22 154/98 96 07/29/18 09:58 07/29/18 09:58 07/29/18 09:58 07/29/18 09:58 07/29/18 09:58 Vital Signs Reviewed: Yes Appearance: Positive: No Pain Distress, Well-Nourished Skin: Positive: Skin Color Reflects Adequate Perfusion Head/Face: Positive: Normal Head/Face Inspection Eyes: Positive: EOMI, MANOHAR, Conjunctiva Clear Neck: Positive: Supple, No Lymphadenopathy Respiratory/Lung Sounds: Positive: Wheezes - bilaterally Cardiovascular: Positive: RRR, Pulses are Symmetrical in both Upper and Lower Extremities Musculoskeletal: Positive: Strength/ROM Intact Neurological: Positive: Speech Normal Psychiatric: Positive: Affect/Mood Appropriate Diagnostics - Vital Signs Vital Signs Temp Pulse Resp BP Pulse Ox 07/29/18 12:22 69 111/67 99 07/29/18 12:00 79 16 99 07/29/18 11:52 87 125/80 96 07/29/18 11:22 71 106/85 99 07/29/18 11:21 72 98 07/29/18 09:58 97.8 F 97 22 154/98 96 - Laboratory Lab Results: Lab Results 07/29/18 07/29/18 07/29/18 Range/Units 11:46 11:46 11:46 WBC 7.0 (3.5-10.8) 10^3/ul RBC 4.37 (4.00-5.40) 10^6/ul Hgb 14.0 (12.0-16.0) g/dl Hct 40 (35-47) % MCV 92 (80-97) fL MCH 32 H (27-31) pg MCHC 35 (31-36) g/dl RDW 13 (10.5-15) % Plt Count 249 (150-450) 10^3/ul MPV 7.3 L (7.4-10.4) um3 Neut % (Auto) 61.2 (38-83) % Lymph % (Auto) 32.1 (25-47) % [place] % (Auto) 5.6 (0-7) % Eos % (Auto) 0.6 (0-6) % Baso % (Auto) 0.5 (0-2) % Absolute Neuts (auto) 4.3 (1.5-7.7) 10^3/ul Absolute Lymphs (auto) 2.2 (1.0-4.8) 10^3/ul Absolute Monos (auto) 0.4 (0-0.8) 10^3/ul Absolute Eos (auto) 0 (0-0.6) 10^3/ul Absolute Basos (auto) 0 (0-0.2) 10^3/ul Absolute Nucleated RBC 0 10^3/ul Nucleated RBC % 0 Sodium 140 (135-145) mmol/L Potassium 3.9 (3.5-5.0) mmol/L Chloride 108 (101-111) mmol/L Carbon Dioxide 25 (22-32) mmol/L Anion Gap 7 (2-11) mmol/L BUN 11 (6-24) mg/dL Creatinine 0.73 (0.51-0.95) mg/dL Est GFR ( Amer) 116.6 (>60) Est GFR (Non-Af Amer) 96.4 (>60) BUN/Creatinine Ratio 15.1 (8-20) Glucose 105 H (70-100) mg/dL Lactic Acid 0.8 (0.5-2.0) mmol/L Calcium 9.3 (8.6-10.3) mg/dL Total Bilirubin 0.30 (0.2-1.0) mg/dL AST 13 (13-39) U/L ALT 9 (7-52) U/L Alkaline Phosphatase 86 (34-104) U/L Total Protein 6.9 (6.4-8.9) g/dL Albumin 4.2 (3.2-5.2) g/dL Globulin 2.7 (2-4) g/dL Albumin/Globulin Ratio 1.6 (1-3) Result Diagrams: 07/29/18 11:46 07/29/18 11:46 Lab Statement: Any lab studies that have been ordered have been reviewed, and results considered in the medical decision making process. Disposition - Course Course Of Treatment: Up utero inhaler given on arrival. Chest x-ray obtained which shows no acute cardiopulmonary findings. Labs WNL. On physical examination, lungs wheezy bilaterally. Patient is a smoker. RRR. EOMI/ PERRLA. No pharyngeal erythema or exudates found. Airway patent. No LAD noted in the cervical anterior or posterior. She is also given Mucinex in the ED. Flu swab negative. She is discharged home with prednisone, mucinex, and albuterol inhaler. - Diagnoses Provider Diagnoses: Upper respiratory infection Discharge - Sign-Out/Discharge Documenting (check all that apply): Patient Departure - Discharge Plan Condition: Stable Disposition: HOME Prescriptions: guaiFENesin ER TAB [Mucinex*] 600 mg PO BID #14 tab.er predniSONE TAB* [Deltasone TAB*] 50 mg PO DAILY #5 tab Patient Education Materials: Upper Respiratory Infection (ED) Forms: *Gen. Provider Communication Referrals: Ina Bowers MD [Primary Care Provider] - Additional Instructions: Prednisone daily x 5 days in the morning Moist heat to the chest Steam may help open up the air passages Mucinex twice daily 7 days You may also use Tylenol or ibuprofen for discomfort of the chest Albuterol inhaler up to every 4 hours as needed for shortness of breath - Billing Disposition and Condition Condition: STABLE Disposition: Home
--- NOTE | 2018-07-29 13:14 | RAD ---
Indication: Shortness of breath. 2 views of the chest including dual energy PA views demonstrate no mediastinal shift. Heart is of normal size and configuration. There may be some minimal atelectasis or airspace disease in the right midlung field. No pleural fluid is identified. This is new since previous exam of February 06, 2018. IMPRESSION: There may be some early atelectasis or airspace disease in the right midlung field.
[2018-07-29 13:43] VITALS: BP 141/90
== END 2018-07-29 13:41 | disposition home or self-care (01) ==
LOC: ED 09:57
DX: J06.9 Acute upper respiratory infection, unspecified (principal); F17.210 Nicotine dependence, cigarettes, uncomplicated
CPT/HCPCS: 36415; 71046; 80053; 83605; 85025; 99283; A9270-GY

== ENCOUNTER 2018-08-05 10:08 | Emergency (ER) | payer OTHER ==
[2018-08-05] MEDS ORDERED: LORazepam TAB(*) 1 MG PO ONE (10:25)
--- NOTE | 2018-08-05 10:25 | ED ---
Altered Mental Status - HPI Summary HPI Summary: Patient is a 28 y/o F BIBA w/ c/o anxiety. She recently had her anxiety medications switched from Klonopin to Ativan. Patient goes to [facility] for her anxiety medications and reports that she ran out of her medications two days ago. She has an appointment with [facility] today at 1300. Patient was seen at [facility] yesterday for a similar complaint. She reports that Ativan has not been effective, states she has been on Klonopin for "a long time". In the room, she reports PEÑA, dizziness, body numbness. She denies SI, HI, hallucinations, overdose. Patient notes that she bruises easily and is a smoker. Cessation of smoking was discussed. Fever, chills, ear pain, sore throat , blurred vision, double vision, neck pain, CP, SOB, ABD pain, back pain, dysuria, hematuria, blood in the stool, constipation, edema, and rashes are denied. On triage, associated severity is rated 3/10, nothing is noted to aggravate/alleviate Sx. Home medications and allergies are reviewed. - History Of Current Complaint Stated Complaint: ANXIETY Hx Obtained From: Patient Hx Last Menstrual Period: 06/03/18 Onset/Duration: Still Present Timing: Constant Severity Currently: Mild - 3/10 on triage Character: Agitation - anxious Aggravating Factor(s): Nothing Alleviating Factor(s): Nothing Associated Signs And Symptoms: Positive: Dizziness, Headache Has Suicidal: Thoughts - DENIED Has Homicidal: Thoughts - DENIED - Allergies/Home Medications Allergies/Adverse Reactions: Allergies Allergy/AdvReac Type Severity Reaction Status Date / Time diphenhydramine Allergy Flushing Verified 07/29/18 10:01 [From Benadryl] Penicillins Allergy Hives Verified 07/29/18 10:01 Sulfa (Sulfonamide Allergy Hives Verified 07/29/18 10:01 Antibiotics) PMH/Surg Hx/FS Hx/Imm Hx Endocrine/Hematology History: Denies: Hx Diabetes, Hx Thyroid Disease Cardiovascular History: Reports: Hx Hypertension, Other Cardiovascular Problems/ Disorders - pt developed HTN after giving 12 weeks Denies: Hx Congestive Heart Failure Respiratory History: Denies: Hx Asthma, Hx Chronic Obstructive Pulmonary Disease (COPD) GI History: Reports: Other GI Disorders - pt states she has acid reflux after Denies: Hx Ulcer History: Reports: Hx Renal Disease - preeclampsia, Other Problems/ Disorders - pt had preclampsia with protein in urine Neurological History: Reports: Other Neuro Impairments/Disorders - pt c/o dizziness and feeling pressure in head Psychiatric History: Reports: Hx Anxiety, Hx Depression - Surgical History Surgery Procedure, Year, and Place: RIGHT OOPHERECTOMY - Immunization History Date of Tetanus Vaccine: Up to Date Date of Influenza Vaccine: None Infectious Disease History: No Infectious Disease History: Denies: Hx Clostridium Difficile, Hx Hepatitis, Hx Human Immunodeficiency Virus (HIV), Hx of Known/Suspected MRSA, Hx Shingles, Hx Tuberculosis, Hx Known/ Suspected VRE, Hx Known/Suspected VRSA, History Other Infectious Disease, Traveled Outside the [place] in Last 30 Days - Family History Known Family History: Positive: Cardiac Disease - Not immediate family, uncle, Hypertension Negative: Blood Disorder - blood clots - Social History Alcohol Use: Occasionally Alcohol Amount: TWICE/WEEK Hx Substance Use: Yes Substance Use Type: Reports: Marijuana Substance Use Comment - Amount & Last Used: daily Hx Tobacco Use: Yes Smoking Status (MU): Current Some Day Smoker Type: Cigarettes Amount Used/How Often: 1/2 pp day Length of Time of Smoking/Using Tobacco: 9 years Have You Smoked in the Last Year: No Review of Systems Negative: Fever, Chills Positive: Other - NEGATIVE: double vision . Negative: Blurred Vision Negative: Sore Throat, Ear Ache Negative: Chest Pain Negative: Shortness Of Breath Negative: Abdominal Pain Positive: other - NEGATIVE: blood in stool . Negative: dysuria, hematuria Positive: Other - NEGATIVE: back pain, neck pain . Negative: Edema Positive: Bruising - patient notes she . Negative: Rash Neurological: Other - dizziness Positive: Headache, Numbness - body Positive: Anxious, Other - NEGATIVE: SI, HI, hallucinations, overdoses All Other Systems Reviewed And Are Negative: No Physical Exam - Summary Physical Exam Summary: Appearance: Alert, conversive, nontoxic appearing Skin: Warm, dry, no mottling, no rashes, no contusions HEENT: EOMI, PERRL, moist mucous membranes Neck: No masses on the neck, supple Respiratory: Slight wheeze Cardiovascular: RRR, pulses are symmetrical in both lower and upper extremities Abdomen: Soft, non-tender Bowel Sounds: Present Musculoskeletal: No CVA tenderness, no obvious deformity, moving all extremities in a grossly normal manner Neurological: A&Ox3, CN II-XII Intact, moving all extremities symmetrically Psychiatric: anxious, tearful, nervous Triage Information Reviewed: Yes Vital Signs On Initial Exam: Initial Vitals Temp Pulse Resp BP Pulse Ox 97.9 F 82 17 142/102 100 08/05/18 10:11 08/05/18 10:11 08/05/18 10:11 08/05/18 10:11 08/05/18 10:11 Vital Signs Reviewed: Yes Diagnostics - Vital Signs Vital Signs Temp Pulse Resp BP Pulse Ox 08/05/18 10:11 97.9 F 82 17 142/102 100 - Laboratory Lab Statement: Any lab studies that have been ordered have been reviewed, and results considered in the medical decision making process. Altered Mental Statu Course/Dx - Course Course Of Treatment: Patient is a 28 y/o F BIBA w/ c/o anxiety. She recently had her anxiety medications switched from Klonopin to Ativan. Patient goes to [facility] for her anxiety medications and reports that she ran out of her medications two days ago. She has an appointment with [facility] today at 1300. Patient was seen at [facility] yesterday for a similar complaint. She reports that Ativan has not been effective, states she has been on Klonopin for "a long time". In the room, she reports PEÑA, dizziness, body numbness. However, these Sx are likely due to her anxiety. She denies SI, HI, hallucinations, overdose. Patient is a smoker, cessation of smoking was discussed. On physical exam, patient is noted to be anxious, nervous and tearful. A slight wheeze is noted as well. Patient was given 1 mg Ativan and discharged. She will keep her appointment with [facility] today at 1300. Patient is agreeable with this plan. Dx of anxiety. - Diagnoses Provider Diagnoses: Anxiety Discharge - Sign-Out/Discharge Documenting (check all that apply): Patient Departure - discharge - Discharge Plan Condition: Stable Disposition: HOME Patient Education Materials: Generalized Anxiety Disorder (ED) Referrals: Ina Bowers MD [Primary Care Provider] - Additional Instructions: Please keep your appt today at [facility] at 1pm. take all medications as previously instructed. return if worse or any new symptoms. - Billing Disposition and Condition Condition: STABLE Disposition: Home - Attestation Statements Document Initiated by Scribe: Yes Documenting Scribe: Jeffrey Piña Provider For Whom Scribe is Documenting (Include Credential): Mikayla Klein MD Scribe Attestation: I, Jeffrey Piña , scribed for Mikayla Klein MD on 08/05/18 at 2026. Scribe Documentation Reviewed: Yes Provider Attestation: The documentation as recorded by the scribeJeffrey accurately reflects the service I personally performed and the decisions made by me, Mikayla Klein MD
--- OUTSIDE RECORDS SUMMARY | 2018-08-05 10:34 | XMS REPORT ---
:1990 External Reference #:[id number] Author Organization [facility] Address [address] [place] [address] [place] [address] Phone [phone] Care Team Providers Name Role Phone Ina Bowers MD Primary Care Physician Unavailable Payers Type Date Identification Numbers Payment Provider Subscriber Commercial Effective: Policy Number: [id number] [employer] Janet Dillard 2012 Medicaid PayID: [id number] [address] [place] [id number] Problems Date Description Provider Status Onset: 02/27/2014 Benign essential hypertension Nurse Visit [place] Active Onset: 02/27/2014 Generalized anxiety disorder Margaux Thomas M.D. Active Onset: 02/27/2014 Acne Margaux Thomas M.D. Active Onset: 06/26/2014 Mitral valve disorder [facility] Active Onset: 07/22/2015 Psoriasis Ina Bowers M.D. Active Onset: 06/12/2014 Chest pain Blaine Pennington M.D. Resolved Resolved: 07/22/2015 Onset: 06/12/2014 Palpitations Blaine Pennington M.D. Resolved Resolved: 07/22/2015 Onset: 06/12/2014 Dizziness and giddiness Blaine Pennington M.D. 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 Cigarette Use Former Cigarette Smoker 2 Pack Daily Cigarette Use 10 yr, quit when preg 2012 ETOH Use Occasionally consumes alcohol Smoking Patient is a former smoker Recreational Drug Use Current Drug User Recreational Drug Use drug use occ marijuana Daily Caffeine Does Not Consume Caffeine Exercise Type/Frequency Does not exercise Allergies, Adverse Reactions, Alerts Date Description Reaction Status Severity Comments 02/26/2014 Sulfa Antibiotics active 02/26/2014 Penicillin active 05/01/2014 Benadryl active Medications Medication Date Status Form Strength Qnty SIG Indications Ordering Provider Benzonatate 07/26 Hx Capsules 200mg 30cap one by J06.9 s mouth three KATHY Lugo - times daily 08/02 as needed for cough Flovent HFA 07/26 Hx Aerosol 110mcg/Ac 12gm 2 puffs J06.9 [place] t twice KATHY Lugo - daily, 08/07 rinse mouth after use. Celexa 11/13 Active Tablets 40mg 30tab Take One s Tablet By KATHY Lugo Mouth Every Day Naproxen 06/07 Hx Tablets 500mg 30tab 1 tablet s with food KATHY Lugo - by mouth 06/12 twice a day /2017 Ibuprofen 11/30 Hx Tablets 600mg 30tab take 1 s tablet by German, - mouth every M.D. 06/07 6 hours needed with food Ondansetron 11/13 Hx Tablets 4mg 30tab dissolve R11.2 Dispers s one tablet [place] [employer] - orally 06/07 every hours as needed for nausea. Clobetasol 11/02 Hx Cream 0.05% 60gm apply to [place] areas 2 [place] [employer] - times per 06/07 day fo rn longer than two weeks. Fluocinonide 06/29 Hx Cream 0.1% 60uni Apply To ts Affected German - Areas Two M.D. 11/02 Times A Day Cephalexin 06/27 Hx Capsules 500mg 28cap 1 cap qid Bbo, Martha Milton MD 06/07 Fluconazole 06/14 Hx Tablets 150mg 3tabs Take 1 B37.9 Tablet By [place] [employer] - Mouth Once 06/29 - February Repeat Every 3 Days as Needed Loratadine 12/22 Hx Tablets 10mg 10tab 1 by mouth J01.90 Ina s every day Martha Bowers M.D. 06/14 Doxycycline 12/22 Hx Tablets 100mg 20tab 1 tablet J01.90 Ina Hyclate s twice a day Robinson, - x 10 days M.D. 06/14 Fluconazole 08/30 Hx Tablets 150mg 2tabs 1 by mouth Ina /2015 every day Martha BowersDLesa 12/22 Doxycycline 07/[address] 100mg 14tab 1 tablet Ina Hyclate s twice a day Robinosn, - x 7 days M.D. 12/22 Fluticasone 05/07 Hx Suspension 50mcg/Act 16gm 2 sprays 465.9 [place] Propionate each KATHY Lugo - nostril 07/08 every for 2 weeks. Diflucan 02/02 Hx Tablets 150mg 1tabs 1 tab x1 Chuck E. /2014 Martha Jon M.D. 07/26 Clarithromycin 01/22 Hx Tablets 250mg 20tab 1 tab bid x 463 [place] /2014 s 10 days KATHY Lugo - 04/07 Triamcinolone 12/18 Hx Cream 0.025% 80gm apply thin [place] Acetonide film bid. KATHY Lugo - do not use 12/22 on the face Clarithromycin 08/17 Hx Tablets 250mg 20tab 1 tab every 463 s 12hours x KATHY Joy - 10 days 09/16 Clindamycin HCL 08/12 Hx Capsules 300mg 1 po qid Ina /2014 Martha Bowers.DLesa 08/17 Zithromax Z-Jaime 08/03 Hx Tablets 250mg 1tabs take 2 tabs 463 Zsofi by mouth Giovanni, - 1st day of [employer] 08/08 treatment then 1 tab by mouth for an additional 4 days. Atenolol 07/20 Hx Tablets 25mg 15tab 1/2 tablet Blaine s by mouth Augusta Pennington, - every day M.D. 07/30 for 4 days /2013 and then every other day for 2 doses and then discontinue . Azithromycin 07/16 Hx Tablets 500mg 5tabs 1 tab daily X 5 days Martha Bowers M.D. 07/30 Fluconazole 06/23 Hx Tablets 150mg 2tabs one by Margaux mouth and William, - may repeat M.DLesa 07/14 i in 1 week as needed Labetalol HCL 06/12 Hx Tablets 200mg 30tab 50 mg q am, s 100 mg q pm Martha Benton M.D. 07/30 Erythromycin 05/14 Hx Gel 2% 60gm apply thin 706.1 film twice Cotton, - daily M.D. 01/22 Losartan 05/01 Hx Tablets 25mg 30tab 1 by mouth 401.1 Blaine Potassium s every day Augusta Pennington, - hold as of M.DLesa 06/14 9.5. Ciprofloxacin 04/18 Hx Tablets 250mg 10tab 1 po bid Rito HCL s x5d Martha Rangel M.D.,FACP 04/24 Lisinopril 04/16 Hx Tablets 40mg 30tab 1 by mouth 401.1 s every day Martha Thomas M.D. 04/28 Fluconazole 03/19 Hx Tablets 150mg 2tabs 1 by mouth 616.10 then repeat William, - x1 in 1week M.DLesa 06/11 Ibuprofen 03/19 Hx Tablets 600mg 90tab three times 616.10 s a day as William, - needed M.DLesa 06/12 Citalopram 03/12 Hx Tablets 40mg 30tab 1 by mouth Margaux Hydrobromide s every day Martha Thomas M.D. 04/16 Labetalol HCL 03/06 Hx Tablets 200mg 60tab 1 tab in Am s and 1/2 tab William - PM Miranda.DLesa 06/12 Labetalol HCL 03/04 Hx Tablets 100mg twice a day by mouth Ordering - Provider 03/06 Ferrous 03/03 Hx Tablets 324(37.5F 100ta 1 by mouth Margaux Gluconate /2013 e) mg bs qd Martha Thomas M.D. 07/14 Labetalol HCL 02/26 Hx Tablets 200mg 180ta by mouth Margaux /2014 bs twice a day Martha Thomas M.D. 03/04 Citalopram 02/26 Hx Tablets 20mg 30tab 1 by mouth Margaux Hydrobromide s every day Mratha Thomas M.D. 03/12 Clonazepam 02/26 Hx Tablets 1mg 10tab 1/2-1 by Margaux s mouth twice William - a day as M.DLesa 04/28 needed PNV 02/26 Hx Tablets 27-1mg 90tab 1 by mouth Margaxu Plus s every day William Multivitamin - [place] 05/14 Ibuprofen 02/26 Hx Tablets 600mg 90tab 1 by mouth Margaux s q6hrs prn Martha Thomas M.D. 05/14 Benzoyl 02/26 Hx Gel 5-3% 46gm apply to 706.1 Margaux Peroxide-Erythr face 2x per malgorzata Thomas - [place] 03/12 Progesterone Hx Capsules 100mg 90cap 1 by mouth Unknown Micronized /0000 s every day - 04/16 Lorazepam Hx Tablets 1mg 90tab 1 every 6 Unknown /0000 s hours as - needed 06/11 Klonopin Hx Tablets 1mg 30tab 1 by mouth Unknown /0000 s po q am, 1 - po q pm prn 11/13 Tretinoin 00 Hx Cream 0.025% Nadeem /0000 , - [place] 08/03 MD Lo Loestrin Fe Hx Tablets 1mg-10 Unknown /0000 mcg / 10 - mcg 12/22 Fluocinonide Hx Ointment 0.05% 15gm use as [place] /0000 directed KATHY Lugo - 06/29 Clindamycin HCL 0000 Hx Capsules 300mg Bob, /0000 Martha Kaur MD 06/29 Clonazepam 0000 Hx Tablets 0.5mg Unknown /0000 Dispers - 07/26 Immunizations CPT Code Status Date Vaccine Lot # [id number] Refused 08/03/2014 Flu Vaccine Split Virus Preservative Free For Indiv 3Yr Older Vital Signs Date Vital Result Comment 07/26/2018 Height 67 inches 5'7" Weight 203.00 lb Heart Rate 75 /min BP Systolic 121 mmHg BP Diastolic 74 mmHg O2 % BldC Oximetry 97 % BMI (Body Mass Index) 31.8 kg/m2 06/07/2018 Height 67 inches 5'7" Weight 198.00 lb Heart Rate 88 /min BP Systolic Sitting 129 mmHg BP Diastolic Sitting 92 mmHg O2 % BldC Oximetry 98 % BMI (Body Mass Index) 31.0 kg/m2 11/13/2017 Weight 178.25 lb Heart Rate 94 /min BP Systolic Sitting 126 mmHg BP Diastolic Sitting 78 mmHg Body Temperature 98.5 F O2 % BldC Oximetry 95 % 06/29/2017 Heart Rate 78 /min BP Systolic Sitting 126 mmHg BP Diastolic Sitting 80 mmHg O2 % BldC Oximetry 99 % 06/14/2016 Weight 195.00 lb Heart Rate 76 /min BP Systolic Sitting 118 mmHg BP Diastolic Sitting 66 mmHg Respiratory Rate 15 /min Body Temperature 98.4 F O2 % BldC Oximetry 98 % 12/23/2015 Weight 194.00 lb Heart Rate 97 /min BP Systolic Sitting 106 mmHg BP Diastolic Sitting 68 mmHg Respiratory Rate 16 /min Body Temperature 98.1 F O2 % BldC Oximetry 98 % 07/22/2015 Weight 196.50 lb Heart Rate 95 /min BP Systolic Sitting 115 mmHg BP Diastolic Sitting 68 mmHg Body Temperature 98.7 F O2 % BldC Oximetry 98 % 07/08/2015 Height 68 inches 5'8" Weight 195.00 lb Heart Rate 97 /min BP Systolic 114 mmHg BP Diastolic 71 mmHg Body Temperature 98.7 F BMI (Body Mass Index) 29.6 kg/m2 05/07/2015 Weight 193.75 lb Heart Rate 86 /min BP Systolic Sitting 126 mmHg BP Diastolic Sitting 80 mmHg Body Temperature 98.7 F 01/22/2015 Weight 193.00 lb Heart Rate 67 /min BP Systolic Sitting 110 mmHg BP Diastolic Sitting 56 mmHg Body Temperature 97.6 F 09/17/2014 Height 69 inches 5'9" Weight 184.00 lb Heart Rate 98 /min BP Systolic 134 mmHg LA reg BP Diastolic 76 mmHg LA reg BMI (Body Mass Index) 27.2 kg/m2 08/17/2014 Weight 178.25 lb Heart Rate 115 /min BP Systolic Sitting 112 mmHg BP Diastolic Sitting 78 mmHg Body Temperature 99.1 F O2 % BldC Oximetry 98 % 08/03/2014 Weight 181.50 lb Heart Rate 98 /min BP Systolic Sitting 118 mmHg BP Diastolic Sitting 83 mmHg Body Temperature 98.6 F O2 % BldC Oximetry 98 % 07/30/2014 Weight 180.00 lb Heart Rate 98 /min BP Systolic Sitting 108 mmHg BP Diastolic Sitting 60 mmHg Body Temperature 98.7 F 07/14/2014 Weight 179.00 lb Heart Rate 94 /min BP Systolic Sitting 106 mmHg BP Diastolic Sitting 64 mmHg Body Temperature 98.9 F O2 % BldC Oximetry 98 % 06/23/2014 Weight 179.00 lb Heart Rate 92 /min BP Systolic Sitting 118 mmHg BP Diastolic Sitting 70 mmHg 06/12/2014 Height 68 inches 5'8" Weight 181.00 lb Heart Rate 76 /min BP Systolic 124 mmHg right BP Diastolic 80 mmHg right BP Systolic Sitting 118 mmHg left, reg BP Diastolic Sitting 80 mmHg left, reg BP Systolic Standing 122 mmHg left BP Diastolic Standing 72 mmHg left Respiratory Rate 12 /min BMI (Body Mass Index) 27.5 kg/m2 05/14/2014 Weight 175.25 lb Heart Rate 97 /min 80 supine, 100 standing BP Systolic Sitting 118 mmHg L arm BP Diastolic Sitting 80 mmHg L arm BP Systolic Standing 112 mmHg R arm BP Diastolic Standing 80 mmHg R arm BP Systolic Lying Down 120 mmHg standing 126/96 BP Diastolic Lying Down 80 mmHg standing 126/96 05/06/2014 Weight 178.00 lb Heart Rate 78 /min BP Systolic Sitting 126 mmHg BP Diastolic Sitting 76 mmHg 05/01/2014 Weight 181.00 lb Heart Rate 91 /min BP Systolic Sitting 113 mmHg BP Diastolic Sitting 76 mmHg 04/28/2014 Weight 182.00 lb Heart Rate 90 /min BP Systolic Sitting 118 mmHg BP Diastolic Sitting 72 mmHg Body Temperature 98.8 F 04/16/2014 Weight 184.00 lb Heart Rate 86 /min BP Systolic Sitting 128 mmHg BP Diastolic Sitting 80 mmHg 04/07/2014 Height 66 inches 5'6" Weight 190.00 lb Heart Rate 72 /min BP Systolic Sitting 136 mmHg BP Diastolic Sitting 82 mmHg Body Temperature 99.2 F BMI (Body Mass Index) 30.7 kg/m2 03/19/2014 Weight 187.75 lb Heart Rate 75 /min BP Systolic Sitting 126 mmHg BP Diastolic Sitting 85 mmHg Body Temperature 98.0 F 03/12/2014 Weight 193.00 lb Heart Rate 90 /min BP Systolic Sitting 132 mmHg BP Diastolic Sitting 89 mmHg 02/27/2014 Weight 197.00 lb Heart Rate 74 /min BP Systolic Sitting 126 mmHg BP Diastolic Sitting 72 mmHg 02/26/2014 Height 66.5 inches 5'6.50" Weight 200.25 lb Heart Rate 80 /min BP Systolic 136 mmHg BP Diastolic 72 mmHg BP Systolic Sitting 134 mmHg BP Diastolic Sitting 86 mmHg Respiratory Rate 16 /min Body Temperature 98.2 F BMI (Body Mass Index) 31.8 kg/m2 Results Test Date Test Result H/L Range Note Laboratory test finding 02/18/2018 Lactic Acid 0.7 mmol/L 0.5-2.0 1 Laboratory test finding 11/29/2017 Poc , Urine Positive Negative 2 Laboratory test finding 11/29/2017 Rapid Strep Molecular Negative Negative 3 Poc Urinalysis 11/29/2017 Poc Glucose, Urine Negative Negative Poc Bilirubin, Urine Negative Negative Poc Ketone, Urine 1+ Negative Poc Specific [place], Urine 1.015 1.010-1.030 Poc Blood, Urine Negative Negative Poc pH, Urine 8.5 5-9 Poc Protein, Urine Trace Negative Poc Urobilinogen, Urine 0.2 Negative Poc Nitrite, Urine Negative Negative Poc Leukocytes, Urine Negative Negative Poc Color, Urine Yellow Poc Clarity, Urine Cloudy 4 Rapid Influenza A & B 11/29/2017 Influenza A Molecular NEGATIVE Negative 5 Molecular Influenza B Molecular NEGATIVE Negative Laboratory test finding 11/13/2017 Test Urine negative Laboratory test finding 08/28/2017 Gardnerella/Yeast: Vaginal SEE RESULT BELOW 6 Dna Trichomonas Vaginalis Rna TNP Negative 7 GC/Chlamydia Amplified Rna 08/28/2017 Chlamydia trachomatis Rna Negative Negative Neisseria gonorrhoeae (GC) Rna Negative Negative CBC Auto Diff 08/28/2017 White Blood Count 8.0 10^3/uL 3.5-10.8 Red Blood Count 4.36 10^6/uL 4.0-5.4 Hemoglobin 14.1 g/dL 12.0-16.0 Hematocrit 42 % 35-47 Mean Corpuscular Volume 95 fL 80-97 Mean Corpuscular Hemoglobin 32 pg High 27-31 Mean Corpuscular HGB Conc 34 g/dL 31-36 Red Cell Distribution Width 12 % 10.5-15 Platelet Count 222 10^3/uL 150-450 Mean Platelet Volume 7 um3 Low 7.4-10.4 Abs Neutrophils 5.5 10^3/uL 1.5-7.7 Abs Lymphocytes 1.9 10^3/uL 1.0-4.8 Abs Monocytes 0.6 10^3/uL 0-0.8 Abs Eosinophils 0 10^3/uL 0-0.6 Abs Basophils 0.1 10^3/uL 0-0.2 Abs Nucleated RBC 0 10^3/uL Granulocyte % 68.5 % 38-83 Lymphocyte % 23.8 % Low 25-47 Monocyte % 6.9 % 1-9 Eosinophil % 0.2 % 0-6 Basophil % 0.6 % 0-2 Nucleated Red Blood Cells % 0 Comp Metabolic Panel 08/28/2017 Sodium 136 mmol/L 133-145 Potassium 3.9 mmol/L 3.5-5.0 Chloride 105 mmol/L 101-111 Co2 Carbon Dioxide 27 mmol/L 22-32 Anion Gap 4 mmol/L 2-11 Glucose 85 mg/dL 70-100 Blood Urea Nitrogen 10 mg/dL 6-24 Creatinine 0.73 mg/dL 0.51-0.95 BUN/Creatinine Ratio 13.7 8-20 Calcium 9.2 mg/dL 8.6-10.3 Total Protein 6.6 g/dL 6.4-8.9 Albumin 4.4 g/dL 3.2-5.2 Globulin 2.2 g/dL 2-4 Albumin/Globulin Ratio 2.0 1-3 Total Bilirubin 0.60 mg/dL 0.2-1.0 Alkaline Phosphatase 66 U/L 34-104 Alt 8 U/L 7-52 Ast 12 U/L Low 13-39 Egfr Non- 97.1 >60 Egfr 124.9 >60 8 Laboratory test finding 08/28/2017 Lipase < 10 U/L Low 11.0-82.0 CRP High Sensitivity 0.73 mg/L 9 Urine Drug SCR ED & 08/28/2017 Amphetamine Ur Screen None Detected None Detect Pain Clinic Barbiturates Urine Screen None Detected None Detect Benzodiazepine Urine Screen None Detected None Detect Urine Cannabinoids Screen Presumptive Posi <SEE NOTE> None Detect 10 Urine Cocaine Screen None Detected None Detect Urine Opiates Screen None Detected None Detect Urine Phencyclidine Screen None Detected None Detect 11 Urinalysis Profile 08/28/2017 Urine Color Yellow Urine Appearance Cloudy Urine Specific [place] 1.024 1.010-1.030 Urine pH 5.0 5-9 Urine Urobilinogen Negative Negative Urine Ketones 1+ Negative Urine Protein Negative Negative Urine Leukocytes Negative Negative Urine Blood Negative Negative Urine Nitrite Negative Negative Urine Bilirubin Negative Negative Urine Glucose Negative Negative Laboratory test finding 08/28/2017 (HCG) Urine Negative Negative 12 Poc Urinalysis 07/20/2017 Poc Glucose, Urine Negative Negative Poc Bilirubin, Urine Negative Negative Poc Ketone, Urine Negative Negative Poc Specific [place], Urine 1.020 1.010-1.030 Poc Blood, Urine Trace-intact Negative Poc pH, Urine 6.0 5-9 Poc Protein, Urine Negative Negative Poc Urobilinogen, Urine 0.2 Negative Poc Nitrite, Urine Negative Negative Poc Leukocytes, Urine Negative Negative Poc Color, Urine Yellow Poc Clarity, Urine Clear 13 Laboratory test finding 07/20/2017 Poc , Urine Negative Negative 14 CBC Auto Diff 06/27/2017 White Blood Count 11.0 10^3/uL High 3.5-10.8 Red Blood Count 4.31 10^6/uL 4.0-5.4 Hemoglobin 14.0 g/dL 12.0-16.0 Hematocrit 41 % 35-47 Mean Corpuscular Volume 96 fL 80-97 Mean Corpuscular Hemoglobin 33 pg High 27-31 Mean Corpuscular HGB Conc 34 g/dL 31-36 Red Cell Distribution Width 13 % 10.5-15 Platelet Count 248 10^3/uL 150-450 Mean Platelet Volume 7 um3 Low 7.4-10.4 Abs Neutrophils 7.8 10^3/uL High 1.5-7.7 Abs Lymphocytes 2.3 10^3/uL 1.0-4.8 Abs Monocytes 0.8 10^3/uL 0-0.8 Abs Eosinophils 0 10^3/uL 0-0.6 Abs Basophils 0 10^3/uL 0-0.2 Abs Nucleated RBC 0 10^3/uL Granulocyte % 71.2 % 38-83 Lymphocyte % 21.0 % Low 25-47 Monocyte % 7.3 % 1-9 Eosinophil % 0.2 % 0-6 Basophil % 0.3 % 0-2 Nucleated Red Blood Cells % 0 Laboratory test finding 06/27/2017 Troponin-I (TnI) 0.00 ng/mL <0.04 Comp Metabolic Panel 06/27/2017 Sodium 136 mmol/L 133-145 Potassium 3.6 mmol/L 3.5-5.0 Chloride 104 mmol/L 101-111 Co2 Carbon Dioxide 24 mmol/L 22-32 Anion Gap 8 mmol/L 2-11 Glucose 80 mg/dL 70-100 Blood Urea Nitrogen 12 mg/dL 6-24 Creatinine 0.61 mg/dL 0.51-0.95 BUN/Creatinine Ratio 19.7 8-20 Calcium 9.4 mg/dL 8.6-10.3 Total Protein 7.2 g/dL 6.4-8.9 Albumin 4.6 g/dL 3.2-5.2 Globulin 2.6 g/dL 2-4 Albumin/Globulin Ratio 1.8 1-3 Total Bilirubin 0.70 mg/dL 0.2-1.0 Alkaline Phosphatase 96 U/L 34-104 Alt 10 U/L 7-52 Ast 15 U/L 13-39 Egfr Non- 119.5 >60 Egfr 153.7 >60 15 Laboratory test finding 06/27/2017 C Reactive Protein 4.53 mg/L < 5.00 16 HIV 1&2 AB Self Referred Nonreactive Nonreactive 17 Laboratory test finding 05/22/2017 Poc , Urine Negative Negative 18 Poc Urinalysis 05/22/2017 Poc Glucose, Urine Negative Negative Poc Bilirubin, Urine Negative Negative Poc Ketone, Urine Negative Negative Poc Specific [place], Urine 1.020 1.010-1.030 Poc Blood, Urine Negative Negative Poc pH, Urine 7.0 5-9 Poc Protein, Urine Negative Negative Poc Urobilinogen, Urine 0.2 Negative Poc Nitrite, Urine Negative Negative Poc Leukocytes, Urine Negative Negative Poc Color, Urine Yellow Poc Clarity, Urine Clear 19 Laboratory test finding 02/07/2017 (HCG) Urine Negative Negative 20 Comp Metabolic Panel 07/23/2016 Sodium 142 mmol/L 133-145 21 Potassium 3.9 mmol/L 3.5-5.0 21 Chloride 108 mmol/L 101-111 21 Co2 Carbon Dioxide 24 mmol/L 22-32 21 Anion Gap 10 mmol/L 2-11 21 Glucose 70 mg/dL 70-100 21 Blood Urea Nitrogen 14 mg/dL 6-24 21 Creatinine 0.68 mg/dL 0.51-0.95 21 BUN/Creatinine Ratio 20.6 High 8-20 21 Calcium 9.4 mg/dL 8.6-10.3 21 Total Protein 7.3 g/dL 6.4-8.9 21 Albumin 4.8 g/dL 3.2-5.2 21 Globulin 2.5 g/dL 2-4 21 Albumin/Globulin Ratio 1.9 1-3 21 Total Bilirubin 0.40 mg/dL 0.2-1.0 21 Alkaline Phosphatase 79 U/L 34-104 21 Alt 9 U/L 7-52 21 Ast 15 U/L 13-39 21 Egfr Non- 106.3 >60 21 Egfr 136.7 >60 21, 22 CBC Auto Diff 07/23/2016 White Blood Count 11.8 10^3/uL High 3.5-10.8 21 Red Blood Count 4.41 10^6/uL 4.0-5.4 21 Hemoglobin 13.9 g/dL 12.0-16.0 21 Hematocrit 41 % 35-47 21 Mean Corpuscular Volume 94 fL 80-97 21 Mean Corpuscular Hemoglobin 32 pg High 27-31 21 Mean Corpuscular HGB Conc 34 g/dL 31-36 21 Red Cell Distribution Width 13 % 10.5-15 21 Platelet Count 261 10^3/uL 150-450 21 Mean Platelet Volume 8 um3 7.4-10.4 21 Abs Neutrophils 9.2 10^3/uL High 1.5-7.7 21 Abs Lymphocytes 1.8 10^3/uL 1.0-4.8 21 Abs Monocytes 0.7 10^3/uL 0-0.8 21 Abs Eosinophils 0 10^3/uL 0-0.6 21 Abs Basophils 0 10^3/uL 0-0.2 21 Abs Nucleated RBC 0.01 10^3/uL 21 Granulocyte % 78.5 % 38-83 21 Lymphocyte % 14.9 % Low 25-47 21 Monocyte % 6.1 % 1-9 21 Eosinophil % 0.2 % 0-6 21 Basophil % 0.3 % 0-2 21 Nucleated Red Blood Cells % 0.1 21 Hepatitis B [place] AB 07/23/2016 Hepatitis B Surface AB Nonreactive Nonreactive 21 Titer Hep B Surf AB Level 6.69 mIU/mL <12 21, 23 Laboratory test 07/23/2016 Hepatitis B Surface Nonreactive Nonreactive 21, 24 finding Ag Hepatitis C Antibody Nonreactive Nonreactive 21, 25 HIV 1/2 AB 07/23/2016 HIV 1 2 Antibody Nonreactive Nonreactive 21, 26 Evaluation Laboratory test 05/29/2016 Rapid Strep Negative Negative 27 finding Molecular Laboratory test 05/29/2016 Culture Throat SEE RESULT BELOW 28, 29 finding Laboratory test 03/27/2016 Lactic Acid 1.7 mmol/L 0.5-2.0 30 finding CBC Auto Diff 03/27/2016 White Blood 11.6 10^3/uL High 3.5-10.8 Count Red Blood Count 4.53 10^6/uL 4.0-5.4 Hemoglobin 14.0 g/dL 12.0-16.0 Hematocrit 42 % 35-47 Mean Corpuscular Volume 93 fL 80-97 Mean Corpuscular Hemoglobin 31 pg 27-31 Mean Corpuscular HGB Conc 33 g/dL 31-36 Red Cell Distribution Width 13 % 10.5-15 Platelet Count 297 10^3/uL 150-450 Mean Platelet Volume 8 um3 7.4-10.4 Abs Neutrophils 8.5 10^3/uL High 1.5-7.7 Abs Lymphocytes 2.2 10^3/uL 1.0-4.8 Abs Monocytes 0.9 10^3/uL High 0-0.8 Abs Eosinophils 0 10^3/uL 0-0.6 Abs Basophils 0.1 10^3/uL 0-0.2 Abs Nucleated RBC 0.01 10^3/uL Granulocyte % 72.9 % 38-83 Lymphocyte % 18.6 % Low 25-47 Monocyte % 7.6 % 1-9 Eosinophil % 0.2 % 0-6 Basophil % 0.7 % 0-2 Nucleated Red Blood Cells % 0.1 Comp Metabolic Panel 03/27/2016 Sodium 138 mmol/L 133-145 Potassium 3.8 mmol/L 3.5-5.0 Chloride 104 mmol/L 101-111 Co2 Carbon Dioxide 23 mmol/L 22-32 Anion Gap 11 mmol/L 2-11 Glucose 80 mg/dL 70-100 Blood Urea Nitrogen 10 mg/dL 6-24 Creatinine 0.76 mg/dL 0.51-0.95 BUN/Creatinine Ratio 13.2 8-20 Calcium 9.5 mg/dL 8.6-10.3 Total Protein 7.6 g/dL 6.4-8.9 Albumin 5.0 g/dL 3.2-5.2 Globulin 2.6 g/dL 2-4 Albumin/Globulin Ratio 1.9 1-3 Total Bilirubin 0.50 mg/dL 0.2-1.0 Alkaline Phosphatase 86 U/L 34-104 Alt 11 U/L 7-52 Ast 16 U/L 13-39 Egfr Non- 94.3 >60 Egfr 121.3 >60 31 Laboratory test finding 03/27/2016 HCG < 0.60 mIU/mL 32 HIV (1&2) Ab Rapid Nonreactive Nonreactive Hepatitis B Surface Ag Nonreactive Nonreactive Hepatitis C Antibody Nonreactive Nonreactive HIV 1&2 AB Self Referred Nonreactive Nonreactive 33 Laboratory test 12/11/2015 Point of Care Glucose 92 mg/dL 74-106 34 finding Ua And Culture 05/07/2015 Urine Culture And SEE RESULT BELOW 35 Sensitivity Sensitivities Urinalysis Profile 05/07/2015 Urine Color Yellow Urine Appearance Cloudy Urine Specific [place] 1.023 1.010-1.030 Urine pH 5.0 5-9 Urine Urobilinogen Negative Negative Urine Ketones Negative Negative Urine Protein Negative Negative Urine Leukocytes 1+ Negative Urine Blood Negative Negative * * Negative 36 Urine Nitrite Negative Negative Urine Bilirubin Negative Negative Urine Glucose Negative Negative Urine White Blood Cell 2+(11-20/hpf) Absent Urine Red Blood Cell Trace(0-2/hpf) Absent Urine Bacteria 1+ Absent Urine Squamous Epithelial Cell Present Absent Laboratory test finding 05/07/2015 Test Urine neg Ua Routine 05/07/2015 Ua Specific [place] 1.025 Ua PH 5.0 Ua Color yellow Ua Appera clear Ua WBC neg Ua Protein neg Ua Glucose neg Ua Ketones trace Ua Bilirubin neg Ua Urobilinogen normal Ua Nitrite neg Ua Occult Blood neg Laboratory test finding 01/22/2015 Rapid Group A Strep negative Laboratory test finding 01/22/2015 Throat Culture (SEE NOTE) 37 Laboratory test finding 10/11/2014 Rapid Influenza A B Antigen (SEE NOTE) 38 Throat Beta Strep Culture (SEE NOTE) 39 Rapid Strep A 10/11/2014 Rapid Strep A (SEE NOTE) 40 Laboratory test finding 08/25/2014 Trichomonas vaginalis Negative Negative 41 Rna GC/Chlamydia Amplified 08/25/2014 Chlamydia trachomatis Negative Negative Rna Rna Neisseria gonorrhoeae (GC) Rna Negative Negative 42 Gardnerella/Yeast:Vaginal Dna 08/25/2014 Gardnerella/Yeast: (SEE NOTE) 43 Vaginal Dna CBC Auto Diff 08/25/2014 White Blood Count 9.2 4.8-1 10^3/uL 0.8 Red Blood Count 4.38 10^6/uL 4.0-5.4 Hemoglobin 13.7 g/dL 12.0-16.0 Hematocrit 41 % 35-47 Mean Corpuscular Volume 93 fL 80-97 Mean Corpuscular Hemoglobin 31 pg 27-31 Mean Corpuscular HGB Conc 34 g/dL 31-36 Red Cell Distribution Width 13 % 10.5-15 Platelet Count 292 10^3/uL 150-450 Mean Platelet Volume 7 um3 Low 7.4-10.4 Abs Neutrophils 6.1 10^3/uL 1.5-7.7 Abs Lymphocytes 2.2 10^3/uL 1.0-4.8 Abs Monocytes 0.8 10^3/uL 0-0.8 Abs Eosinophils 0 10^3/uL 0-0.6 Abs Basophils 0 10^3/uL 0-0.2 Abs Nucleated RBC 0 10^3/uL Granulocyte % 67.1 % 38-83 Lymphocyte % 23.5 % Low 25-47 Monocyte % 8.6 % 1-9 Eosinophil % 0.5 % 0-6 Basophil % 0.3 % 0-2 Nucleated Red Blood Cells % 0 Laboratory test 08/25/2014 D Dimer Quantitative < 200 ng/mL Less Than 230 44 finding Comp Metabolic Panel 08/25/2014 Sodium 137 mmol/L 133-145 Potassium 3.8 mmol/L 3.5-5.0 45 Chloride 107 mmol/L 101-111 Co2 Carbon Dioxide 26 mmol/L 22-32 Anion Gap 4 mmol/L 2-11 Glucose 84 mg/dL 70-100 Blood Urea Nitrogen 15 mg/dL 6-24 Creatinine 0.75 mg/dL 0.51-0.95 BUN/Creatinine Ratio 20.0 8-20 Calcium 9.1 mg/dL 8.6-10.3 Total Protein 6.8 g/dL 6.4-8.9 Albumin 4.5 g/dL 3.2-5.2 Globulin 2.3 g/dL 2-4 Albumin/Globulin Ratio 2.0 1-3 Total Bilirubin 0.30 mg/dL 0.2-1.0 Alkaline Phosphatase 69 U/L 34-104 Alt 13 U/L 7-52 Ast 11 U/L Low 13-39 Egfr Non- 96.6 >60 Egfr 124.3 >60 46 Urinalysis Profile 08/25/2014 Urine Color Yellow Urine Appearance Cloudy Urine Specific [place] 1.019 1.010-1.030 Urine pH 5.0 5-9 Urine Urobilinogen Negative Negative Urine Ketones Negative Negative Urine Protein Negative Negative Urine Leukocytes Trace Negative Urine Blood Negative Negative * * Negative 47 Urine Nitrite Negative Negative Urine Bilirubin Negative Negative Urine Glucose Negative Negative Urine White Blood Cell Trace Absent Urine Red Blood Cell Trace Absent Urine Bacteria 1+ Absent Urine Squamous Epithelial Cell Present Absent Urine Hyaline Casts Present Absent Urine Culture And Sensitivities 08/25/2014 Urine Culture (SEE NOTE) 48 Rapid Strep A 08/10/2014 Rapid Strep A (SEE NOTE) 49 Laboratory test finding 08/10/2014 Throat Beta Strep (SEE NOTE) 50 Culture Throat Culture (SEE NOTE) 51 Laboratory test finding 08/09/2014 C Reactive Protein 4.07 mg/L < 5.00 52 Laboratory test finding 08/09/2014 Monospot Negative Negative CBC Auto Diff 08/09/2014 White Blood Count 6.4 10^3/uL 4.8-10.8 Red Blood Count 4.47 10^6/uL 4.0-5.4 Hemoglobin 13.7 g/dL 12.0-16.0 Hematocrit 41 % 35-47 Mean Corpuscular Volume 92 fL 80-97 Mean Corpuscular Hemoglobin 31 pg 27-31 Mean Corpuscular HGB Conc 33 g/dL 31-36 Red Cell Distribution Width 12 % 10.5-15 Platelet Count 275 10^3/uL 150-450 Mean Platelet Volume 7 um3 Low 7.4-10.4 Abs Neutrophils 4.2 10^3/uL 1.5-7.7 Abs Lymphocytes 1.6 10^3/uL 1.0-4.8 Abs Monocytes 0.5 10^3/uL 0-0.8 Abs Eosinophils 0 10^3/uL 0-0.6 Abs Basophils 0 10^3/uL 0-0.2 Abs Nucleated RBC 0 10^3/uL Granulocyte % 66.0 % 38-83 Lymphocyte % 25.0 % 25-47 Monocyte % 7.9 % 1-9 Eosinophil % 0.5 % 0-6 Basophil % 0.6 % 0-2 Nucleated Red Blood Cells % 0 Comp Metabolic Panel 08/09/2014 Sodium 136 mmol/L 133-145 Potassium 3.6 mmol/L Low 3.7-5.6 Chloride 105 mmol/L 101-111 Co2 Carbon Dioxide 25 mmol/L 22-32 Anion Gap 6 mmol/L 2-11 Glucose 99 mg/dL 70-100 Blood Urea Nitrogen 13 mg/dL 6-24 Creatinine 0.79 mg/dL 0.51-0.95 BUN/Creatinine Ratio 16.5 8-20 Calcium 9.4 mg/dL 8.6-10.3 Total Protein 7.1 g/dL 6.4-8.9 Albumin 4.7 g/dL 3.2-5.2 Globulin 2.4 g/dL 2-4 Albumin/Globulin Ratio 2.0 1-3 Total Bilirubin 0.60 mg/dL 0.2-1.0 Alkaline Phosphatase 84 U/L 34-104 Alt 12 U/L 7-52 Ast 14 U/L 13-39 Egfr Non- 91.0 >60 Egfr 117.0 >60 53 Laboratory test finding 07/30/2014 Test Urine neg Laboratory test finding 07/30/2014 Affirm Vaginal Dna Probe (SEE NOTE) 54 Throat Culture (SEE NOTE) 55 Laboratory test finding 07/14/2014 Throat Culture (SEE NOTE) 56 Laboratory test finding 07/11/2014 Lipase 21 U/L 11.0-82.0 C Reactive Protein 3.27 mg/L < 5.00 57 Urinalysis Profile 07/11/2014 Urine Color Yellow Urine Appearance Clear Urine Specific [place] 1.019 1.010-1.030 Urine pH 5.0 5-9 Urine Urobilinogen Negative Negative Urine Ketones Negative Negative Urine Protein Negative Negative Urine Leukocytes Negative Negative Urine Blood Negative Negative * * Negative 58 Urine Nitrite Negative Negative Urine Bilirubin Negative Negative Urine Glucose Negative Negative CBC Auto Diff 07/11/2014 White Blood Count 10.0 10^3/uL 4.8-10.8 Red Blood Count 3.98 10^6/uL Low 4.0-5.4 Hemoglobin 12.6 g/dL 12.0-16.0 Hematocrit 37 % 35-47 Mean Corpuscular Volume 93 fL 80-97 Mean Corpuscular Hemoglobin 32 pg High 27-31 Mean Corpuscular HGB Conc 34 g/dL 31-36 Red Cell Distribution Width 13 % 10.5-15 Platelet Count 272 10^3/uL 150-450 Mean Platelet Volume 7 um3 Low 7.4-10.4 Abs Neutrophils 8.3 10^3/uL High 1.5-7.7 Abs Lymphocytes 0.9 10^3/uL Low 1.0-4.8 Abs Monocytes 0.8 10^3/uL 0-0.8 Abs Eosinophils 0 10^3/uL 0-0.6 Abs Basophils 0 10^3/uL 0-0.2 Abs Nucleated RBC 0 10^3/uL Granulocyte % 82.6 % 38-83 Lymphocyte % 8.5 % Low 25-47 Monocyte % 8.4 % 1-9 Eosinophil % 0.3 % 0-6 Basophil % 0.2 % 0-2 Nucleated Red Blood Cells % 0 Comp Metabolic Panel 07/11/2014 Sodium 137 mmol/L 133-145 Potassium 4.0 mmol/L 3.7-5.6 Chloride 105 mmol/L 101-111 Co2 Carbon Dioxide 25 mmol/L 22-32 Anion Gap 7 mmol/L 2-11 Glucose 85 mg/dL 70-100 Blood Urea Nitrogen 15 mg/dL 6-24 Creatinine 0.77 mg/dL 0.51-0.95 BUN/Creatinine Ratio 19.5 8-20 Calcium 9.3 mg/dL 8.6-10.3 Total Protein 6.7 g/dL 6.4-8.9 Albumin 4.4 g/dL 3.2-5.2 Globulin 2.3 g/dL 2-4 Albumin/Globulin Ratio 1.9 1-3 Total Bilirubin 0.40 mg/dL 0.2-1.0 Alkaline Phosphatase 70 U/L 34-104 Alt 9 U/L 7-52 Ast 14 U/L 13-39 Egfr Non- 93.7 >60 Egfr 120.6 >60 59 Affirm Vaginal Dna 06/29/2014 Affirm Vaginal Dna (SEE NOTE) 60 Probe Probe GC/Chlamydia Amplified 06/29/2014 GC/Chlamydia Rna (SEE NOTE) 61 Rna Laboratory test finding 06/23/2014 Magnesium 1.9 mg/dL 1.9-2.7 62, 63 CBC Auto Diff 06/23/2014 White Blood Count 7.1 10^3/uL 4.8-10.8 62 Red Blood Count 3.99 10^6/uL Low 4.0-5.4 62 Hemoglobin 12.6 g/dL 12.0-16.0 62 Hematocrit 36 % 35-47 62 Mean Corpuscular Volume 91 fL 80-97 62 Mean Corpuscular Hemoglobin 32 pg High 27-31 62 Mean Corpuscular HGB Conc 35 g/dL 31-36 62 Red Cell Distribution Width 14 % 10.5-15 62 Platelet Count 296 10^3/uL 150-450 62 Mean Platelet Volume 7 um3 Low 7.4-10.4 62 Abs Neutrophils 4.7 10^3/uL 1.5-7.7 62 Abs Lymphocytes 1.7 10^3/uL 1.0-4.8 62 Abs Monocytes 0.7 10^3/uL 0-0.8 62 Abs Eosinophils 0 10^3/uL 0-0.6 62 Abs Basophils 0 10^3/uL 0-0.2 62 Abs Nucleated RBC 0 10^3/uL 62 Granulocyte % 65.4 % 38-83 62 Lymphocyte % 24.1 % Low 25-47 62 Monocyte % 9.5 % High 1-9 62 Eosinophil % 0.5 % 0-6 62 Basophil % 0.5 % 0-2 62 Nucleated Red Blood Cells % 0 62 Laboratory test 06/23/2014 TSH (Thyroid 1.52 IU/mL 0.34-5.60 62, 64 finding Stimulating Horm) Iron & Iron Binding 06/23/2014 Iron 138 g/dL 50-212 62 Capacity Unsaturated Iron Binding 258 g/dL 62 Total Iron Binding Capacity 396 g/dL 250-450 62 % Iron Saturation 35 % 15-55 62 Laboratory test finding 06/23/2014 Affirm Vaginal Dna Probe (SEE NOTE) 65 Laboratory test finding 06/23/2014 Test Urine negative Ua Routine 06/23/2014 Ua Specific [place] 1.015 Ua PH 5.0 Ua Color light yellow Ua Appera clear Ua WBC trace Ua Protein trace Ua Glucose neg Ua Ketones trace Ua Bilirubin neg Ua Urobilinogen norm Ua Nitrite neg Ua Occult Blood neg Basic Metabolic Panel 06/23/2014 Sodium 139 mmol/L 133-145 62 Potassium 4.0 mmol/L 3.7-5.6 62 Chloride 106 mmol/L 101-111 62 Co2 Carbon Dioxide 28 mmol/L 22-32 62 Anion Gap 5 mmol/L 2-11 62 Glucose 70 mg/dL 70-100 62 Blood Urea Nitrogen 13 mg/dL 6-24 62 Creatinine 0.83 mg/dL 0.51-0.95 62 BUN/Creatinine Ratio 15.7 8-20 62 Calcium 9.3 mg/dL 8.6-10.3 62 Egfr Non- 86.0 >60 62 Egfr 110.6 >60 62, 66 Laboratory test finding 06/23/2014 Cortisol 6.67 g/dL 62, 67 CBC Auto Diff 05/13/2014 White Blood Count 6.1 10^3/uL 4.8-10.8 Red Blood Count 4.38 10^6/uL 4.0-5.4 Hemoglobin 13.2 g/dL 12.0-16.0 Hematocrit 39 % 35-47 Mean Corpuscular Volume 88 fL 80-97 Mean Corpuscular Hemoglobin 30 pg 27-31 Mean Corpuscular HGB Conc 34 g/dL 31-36 Red Cell Distribution Width 15 % 10.5-15 Platelet Count 282 10^3/uL 150-450 Mean Platelet Volume 7 um3 Low 7.4-10.4 Abs Neutrophils 4.2 10^3/uL 1.5-7.7 Abs Lymphocytes 1.3 10^3/uL 1.0-4.8 Abs Monocytes 0.5 10^3/uL 0-0.8 Abs Eosinophils 0 10^3/uL 0-0.6 Abs Basophils 0 10^3/uL 0-0.2 Abs Nucleated RBC 0 10^3/uL Granulocyte % 69.7 % 38-83 Lymphocyte % 21.7 % Low 25-47 Monocyte % 7.7 % 1-9 Eosinophil % 0.4 % 0-6 Basophil % 0.5 % 0-2 Nucleated Red Blood Cells % 0 Comp Metabolic Panel 05/13/2014 Sodium 137 mmol/L 133-145 Potassium 3.7 mmol/L 3.7-5.6 Chloride 105 mmol/L 101-111 Co2 Carbon Dioxide 24 mmol/L 22-32 Anion Gap 8 mmol/L 2-11 Glucose 98 mg/dL 70-100 Blood Urea Nitrogen 11 mg/dL 6-24 Creatinine 0.69 mg/dL 0.51-0.95 BUN/Creatinine Ratio 15.9 8-20 Calcium 9.7 mg/dL 8.6-10.3 Total Protein 7.3 g/dL 6.4-8.9 Albumin 4.6 g/dL 3.2-5.2 Globulin 2.7 g/dL 2-4 Albumin/Globulin Ratio 1.7 1-3 Total Bilirubin 0.70 mg/dL 0.2-1.0 Alkaline Phosphatase 84 U/L 34-104 Alt 22 U/L 7-52 Ast 16 U/L 13-39 Egfr Non- 107.4 >60 Egfr 138.1 >60 68 Laboratory test finding 05/13/2014 Magnesium 1.8 mg/dL Low 1.9-2.7 TSH (Thyroid Stimulating Horm) 1.62 IU/mL 0.34-5.60 Urinalysis Profile 05/13/2014 Urine Color Straw Urine Appearance Cloudy Urine Specific [place] 1.003 Low 1.010-1.030 Urine pH 8.0 5-9 Urine Urobilinogen Negative Negative Urine Ketones Negative Negative Urine Protein Negative Negative Urine Leukocytes Negative Negative Urine Blood Negative Negative Urine Nitrite Negative Negative Urine Bilirubin Negative Negative Urine Glucose Negative Negative Urine Culture And Sensitivities 04/28/2014 Urine Culture (SEE NOTE) 69 Ua Routine 04/28/2014 Ua Specific [place] 1.015 Ua PH 5 Ua Color yellow Ua Appera cloudy Ua WBC neg Ua Protein neg Ua Glucose neg Ua Ketones neg Ua Bilirubin neg Ua Urobilinogen neg Ua Nitrite neg Ua Occult Blood neg Laboratory test finding 04/28/2014 Hemoglobin A1c 5.1 5-7 Ua Routine 04/07/2014 Ua Specific [place] 1.005 Ua PH 5 Ua Color yellow Ua Appera clear Ua WBC neg Ua Protein neg Ua Glucose neg Ua Ketones neg Ua Bilirubin neg Ua Urobilinogen neg Ua Nitrite neg Ua Occult Blood large Urine Culture And 04/07/2014 Urine Culture (SEE NOTE) 70 Sensitivities Laboratory test finding 03/19/2014 Affirm Vaginal Dna Probe (SEE NOTE) 71 Ua Routine 03/19/2014 Ua Specific [place] 1.010 Ua PH 5 Ua Color yellow Ua Appera clear Ua WBC neg Ua Protein neg Ua Glucose neg Ua Ketones neg Ua Bilirubin neg Ua Urobilinogen neg Ua Nitrite neg Ua Occult Blood neg Laboratory test finding 02/27/2014 Ferritin < 10.0 ng/mL Low 11-307 72, 73 Vitamin B12 383 pg/mL 180-914 72, 74 Folate > 20.00 ng/mL >3.99 72, 75 Iron & Iron Binding Capacity 02/27/2014 Iron 105 g/dL 50-212 72 Unsaturated Iron Binding 330 g/dL 72 Total Iron Binding Capacity 435 g/dL 250-450 72 % Iron Saturation 24 % 15-55 72 CBC Auto Diff 02/27/2014 White Blood Count 8.7 10^3/uL 4.8-10.8 72 Red Blood Count 3.71 10^6/uL Low 4.0-5.4 72 Hemoglobin 11.1 g/dL Low 12.0-16.0 72 Hematocrit 33 % Low 35-47 72 Mean Corpuscular Volume 89 fL 80-97 72 Mean Corpuscular Hemoglobin 30 pg 27-31 72 Mean Corpuscular HGB Conc 34 g/dL 31-36 72 Red Cell Distribution Width 14 % 10.5-15 72 Platelet Count 312 10^3/uL 150-450 72 Mean Platelet Volume 8 um3 7.4-10.4 72 Abs Neutrophils 6.0 10^3/uL 1.5-7.7 72 Abs Lymphocytes 1.9 10^3/uL 1.0-4.8 72 Abs Monocytes 0.7 10^3/uL 0-0.8 72 Abs Eosinophils 0.1 10^3/uL 0-0.6 72 Abs Basophils 0 10^3/uL 0-0.2 72 Abs Nucleated RBC 0.01 10^3/uL 72 Granulocyte % 68.5 % 38-83 72 Lymphocyte % 21.4 % Low 25-47 72 Monocyte % 8.1 % 1-9 72 Eosinophil % 1.5 % 0-6 72 Basophil % 0.5 % 0-2 72 Nucleated Red Blood Cells % 0.1 72 Comp Metabolic Panel 02/27/2014 Sodium 138 mmol/L 133-145 72 Potassium 4.3 mmol/L 3.7-5.6 72 Chloride 106 mmol/L 101-111 72 Co2 Carbon Dioxide 27 mmol/L 22-32 72 Anion Gap 5 mmol/L 2-11 72 Glucose 89 mg/dL 70-100 72 Blood Urea Nitrogen 14 mg/dL 6-24 72 Creatinine 0.95 mg/dL 0.51-0.95 72 BUN/Creatinine Ratio 14.7 8-20 72 Calcium 9.1 mg/dL 8.6-10.3 72 Total Protein 6.3 g/dL Low 6.4-8.9 72 Albumin 4.1 g/dL 3.2-5.2 72 Globulin 2.2 g/dL 2-4 72 Albumin/Globulin Ratio 1.9 1-3 72 Total Bilirubin 0.30 mg/dL 0.2-1.0 72 Alkaline Phosphatase 113 U/L High 34-104 72 Alt 17 U/L 7-52 72 Ast 17 U/L 13-39 72 Egfr Non- 74.3 >60 72 Egfr 95.5 >60 72, 76 Lipid Profile (Trig/Chol/HDL) 02/27/2014 Triglycerides 264 mg/dL 72, 77 Cholesterol 192 mg/dL 72, 78 HDL Cholesterol 30.7 mg/dL 72, 79 LDL Cholesterol 109 mg/dL 72, 80 Ua Routine 02/26/2014 Ua Specific [place] 1.015 Ua PH 5 Ua Color yellow Ua Appera cloudy Ua WBC negative Ua Protein negative Ua Glucose negative Ua Ketones negative Ua Bilirubin small Ua Urobilinogen negative Ua Nitrite negative Ua Occult Blood negative 1 [facility] Severe Sepsis and Septic Shock Management Bundle Measure requires all lactic acids initially measuring >2.0 mmol/L be repeated. 2 Rv Detailer: [id number] 3 Rv Detailer: [id number] 4 Rv Detailer: [id number] 5 Rv Detailer: [id number] 6 SEE RESULT BELOW Name: JANET DILLARD : [address]: Torito Null MD Acct: [id number] Unit: [id number] AGE: 27 Location: ED Re08/28/17 SEX: F Status: DEP ER SPEC: [id number] LULY: 08/28/[address] [facility] [address]: Marielena LOPEZ REQ: [id number] RECD: 08/28/17 STATUS: ANDREW WHITE DR: Ina Null MD _ SOURCE: VAGINAL SPDESC: ORDERED: Siobhan,Yeast DNA COMMENTS: Would you like to order Trichomonas Vaginalis RNA testing? Y Procedure Result Reported Site Gardnerella/Yeast: Vaginal DNA Final 08/29/17- 0842 ML Organism 1 Negative Gardnerella Organism 2 Negative Amarilis The presence of G. vaginalis, although suggestive, is not diagnostic for bacterial vaginosis. Results should be interpreted in conjuction with other clinical and laboratory data available. Women with vaginal discharge should be evaluated for risk factors of cervicitis and pelvic inflammatory disease, toxic shock syndrome (S.aureus), and if present, evaluated for organisms not included in this assay such as N. gonorrhoeae, C. trachomatis, Mobiluncus, Mycoplasma and/or Prevotella. Mixed infections may occur. The performance of this test on patient specimens collected during or immediately after antimicrobial therapy is unknown. The presence or absence of Amarilis species, or G. vaginalis cannot be used as a test for therapeutic success or failure. * ML - MAIN LAB ([facility]) . END OF REPORT * ML=Testing performed at Main Lab DEPARTMENT OF PATHOLOGY, [address] [place] [address] Erlin Xiong M.D. Director [facility] # [id number] 7 Affirm source, MTRICH ordered instead. 8 Because ethnic data is not always readily available, this report includes an eGFR for both -Americans and non- Americans. The National Kidney Disease Education Program (NKDEP) does not endorse the use of the MDRD equation for patients that are not between the ages of 18 and 70, are , have extremes of body size, muscle mass, or nutritional status, or are non- or non-. According to the National Kidney Foundation, irrespective of diagnosis, the stage of the disease is based on the level of kidney function: Stage Description GFR(mL/min/1.73 m(2)) 1 Kidney damage with normal or decreased GFR 90 2 Kidney damage with mild decrease in GFR 60-89 3 Moderate decrease in GFR 30-59 4 Severe decrease in GFR 15-29 5 Kidney failure <15 (or dialysis) 9 Low risk: <1.00 Average risk: 1.00-3.00 High risk: >3.00 10 Presumptive Positive Presumptive positive results are unconfirmed. 11 The urine specimen was tested at the listed cutoffs: Drug class test level (ng/mL) Amphetamines 500 Barbiturates 200 Benzodiazepine metabolites 200 Cocaine metabolites 150 Cannabinoids 50 Opiates 300 Pcp 25 Specimen was received without chain of custody. Results should be used for medical purposes only. 12 If is still suspected, please repeat test after 48 to 72 hours. This test detects intact HCG only and is indicated for the early detection of . 13 Rv Detailer: [id number] 14 Rv Detailer: [id number] If is still suspected, please repeat test after 48 to 72 hours. 15 Because ethnic data is not always readily available, this report includes an eGFR for both -Americans and non- Americans. The National Kidney Disease Education Program (NKDEP) does not endorse the use of the MDRD equation for patients that are not between the ages of 18 and 70, are , have extremes of body size, muscle mass, or nutritional status, or are non- or non-. According to the National Kidney Foundation, irrespective of diagnosis, the stage of the disease is based on the level of kidney function: Stage Description GFR(mL/min/1.73 m(2)) 1 Kidney damage with normal or decreased GFR 90 2 Kidney damage with mild decrease in GFR 60-89 3 Moderate decrease in GFR 30-59 4 Severe decrease in GFR 15-29 5 Kidney failure <15 (or dialysis) 16 Acute inflammation: >10.00 17 It is recognized that currently available assays for the detection of antibodies to HIV-1 and/or HIV-2 may not detect all infected individuals. HIV antibodies may be undetectable in some stages of the infection and in some clinical conditions. The performance of this assay has not been established for populations of infants or children. Assayed by Chemiluminescence Microparticle Immunoassay on the Siemens Advia Centaur CP. Values obtained with different methods or kits cannot be used interchangeably.The diagnostic specificity of the ADVIA Centaur 1/O/2 Enhanced assay in the low risk population was 99.90% (6052/6058) with a 95% confidence interval of 99.78 to 99.96%. 18 Rv Detailer: [id number] If is still suspected, please repeat test after 48 to 72 hours. 19 Rv Detailer: [id number] 20 If is still suspected, please repeat test after 48 to 72 hours. This test detects intact HCG only and is indicated for the early detection of . 21 [id number] 22 Because ethnic data is not always readily available, this report includes an eGFR for both -Americans and non- Americans. The National Kidney Disease Education Program (NKDEP) does not endorse the use of the MDRD equation for patients that are not between the ages of 18 and 70, are , have extremes of body size, muscle mass, or nutritional status, or are non- or non-. According to the National Kidney Foundation, irrespective of diagnosis, the stage of the disease is based on the level of kidney function: Stage Description GFR(mL/min/1.73 m(2)) 1 Kidney damage with normal or decreased GFR 90 2 Kidney damage with mild decrease in GFR 60-89 3 Moderate decrease in GFR 30-59 4 Severe decrease in GFR 15-29 5 Kidney failure <15 (or dialysis) 23 This assay does not differentiate between reactivity due to a vaccine-induced immune response or an immune response induced by infection with HBV. 24 [id number] 25 [id number] 26 It is recognized that currently available assays for the detection of antibodies to HIV-1 and/or HIV-2 may not detect all infected individuals. HIV antibodies may be undetectable in some stages of the infection and in some clinical conditions. The performance of this assay has not been established for populations of infants or children. Assayed by Chemiluminescence Microparticle Immunoassay on the Siemens Advia Centaur CP. Values obtained with different methods or kits cannot be used interchangeably.The diagnostic specificity of the ADVIA Centaur 1/O/2 Enhanced assay in the low risk population was 99.90% (6052/6058) with a 95% confidence interval of 99.78 to 99.96%. 27 Rv Detailer: [id number] NAOMI LANGE Due to the increased sensitivity of molecular testing, reflex cultures are no longer performed. 28 [id number] 29 SEE RESULT BELOW Name: JANET DILLARD : [address]: Jessi Brasher MD Acct: [id number] Unit: [id number] AGE: 26 Location: [facility] Re05/29/16 SEX: F Status: DEP ER SPEC: [id number] LULY: 05/29/16-[address] [facility] [address]: Talisha Finley NP REQ: [id number] RECD: 05/29/16 STATUS: COMP [facility] DR: Ina Brasher MD _ SOURCE: THROAT SPDESC: ORDERED: Throat Culture COMMENTS: [id number] Procedure Result Reported Site Throat Culture Final 05/31/16- 1250 ML Organism 1 STREP GROUP C Quantity 2+ Organism 2 NORMAL JOSE L Quantity 3+ * ML - MAIN LAB ([facility]) . END OF REPORT * ML=Testing performed at Main Lab DEPARTMENT OF PATHOLOGY, [address] [place] [address] Erlin Xiong M.D. Director [facility] # [id number] 30 [facility] Severe Sepsis and Septic Shock Management Bundle Measure requires all lactic acids initially measuring >2.0 mmol/L be repeated. 31 Because ethnic data is not always readily available, this report includes an eGFR for both -Americans and non- Americans. The National Kidney Disease Education Program (NKDEP) does not endorse the use of the MDRD equation for patients that are not between the ages of 18 and 70, are , have extremes of body size, muscle mass, or nutritional status, or are non- or non-. According to the National Kidney Foundation, irrespective of diagnosis, the stage of the disease is based on the level of kidney function: Stage Description GFR(mL/min/1.73 m(2)) 1 Kidney damage with normal or decreased GFR 90 2 Kidney damage with mild decrease in GFR 60-89 3 Moderate decrease in GFR 30-59 4 Severe decrease in GFR 15-29 5 Kidney failure <15 (or dialysis) 32 <5.0 Negative 5.0 - 25.0 Indeterminate (Repeat testing recommended after 72 hours) >25.0 Positive Perimenopausal women can display HCG levels of up to 20 mIU/mL 33 It is recognized that currently available assays for the detection of antibodies to HIV-1 and/or HIV-2 may not detect all infected individuals. HIV antibodies may be undetectable in some stages of the infection and in some clinical conditions. The performance of this assay has not been established for populations of infants or children. Assayed by Chemiluminescence Microparticle Immunoassay on the Siemens Advia Centaur CP. Values obtained with different methods or kits cannot be used interchangeably.The diagnostic specificity of the ADVIA Centaur 1/O/2 Enhanced assay in the low risk population was 99.90% (6052/6058) with a 95% confidence interval of 99.78 to 99.96%. 34 Rv Detailer: [id number] LUIS CONCEPCION 35 SEE RESULT BELOW Name: JANET DILLARD : [address]: Leeroy Lugo NP Acct: [id number] Unit: [id number] AGE: 24 Location: [facility] Re05/07/15 SEX: F Status: REG REF SPEC: [id number] LULY: 05/07/15-[address]: Leeroy Lugo NP REQ: [id number] RECD: 05/07/15 STATUS: COMP _ SOURCE: URINE SPDESC: ORDERED: Urine Culture Procedure Result Verified Site Urine Culture Final 05/09/15- 823 ML Organism 1 NORMAL JOSE L [place] Count 1-10,000 (Few) CFU/ML * ML - MAIN LAB ([facility]) . END OF REPORT * ML=Testing performed at Main Lab DEPARTMENT OF PATHOLOGY, [address] [place] [address] Erlin Xiong M.D. Director [facility] # [id number] 36 *Ascorbic acid is present which may interfere with detection of blood. 37 RUN DATE: 01/24/15 [facility] LAB LIVE PAGE 1 RUN TIME: [address] [place] [id number] Specimen Inquiry Name: JANET DILLARD : [address]: Leeroy Lugo [employer]PER[employer] Acct: [id number] Unit: [id number] AGE: 24 Location: [facility] Re01/22/15 SEX: F Status: REG REF SPEC: [id number] LULY: 01/22/15-[address]: Leeroy Lugo NP REQ: [id number] RECD: 01/22/15151 STATUS: COMP _ SOURCE: THROAT SPDESC: ORDERED: Throat Culture QUERIES: Provider Requisition # [id number] Procedure Result Verified Site Throat Culture Final 01/24/15- 08 ML Organism 1 NORMAL JOSE L Quantity 2+ Throat cultures are clinically indicated to detect the presence of group A strep, arcanobacterium and yeast. In certain cases, predominating organisms will be reported. * ML - MAIN LAB ([facility]) . END OF REPORT * ML=Testing performed at Main Lab DEPARTMENT OF PATHOLOGY, [facility] [place] [place], [place] [address] Erlin Xiong M.D. Director [facility] # [id number] RUN DATE: 10/11/14 [facility] LAB LIVE PAGE 1 RUN TIME: 8851 [facility] [employer] Image [place], [place] [address] Specimen Inquiry Name: JANET DILLARD : [address]: [facility] Acct: [id number] Unit: [id number] AGE: 24 Location: ED Re10/11/14 SEX: F Status: REG ER SPEC: [id number] LULY: 10/11/[address]: Verenice LOPEZ REQ: [id number] RECD: 10/11/14 STATUS: ANDREW WHITE DR: [facility] Ina Bowers MD _ SOURCE: [facility]: ORDERED: Rapid Flu A B Procedure Result Verified Site Rapid Influenza A B Antigen Final 10/11/14- 1337 ML Organism 1 Negative Influenza A B Antigen testing by enzyme immunoassay. Cell culture testing can be performed to confirm negative test results and to assist in detecting other viruses that can produce similar clinical symptoms. Please notify Microbiology Lab if further testing is desired. END OF REPORT * ML=Testing performed at Main Lab DEPARTMENT OF PATHOLOGY, [address] [place] [address] Erlin Xiong M.D. Director [facility] # [id number] 39 RUN DATE: 10/13/14 [facility] LAB LIVE PAGE 1 RUN TIME: [address] [place], [place] [address] Specimen Inquiry Name: JANET DILLARD : [address]: Jagdish Mckeon MD Acct: [id number] Unit: [id number] AGE: 24 Location: ED Re10/11/14 SEX: F Status: DEP ER SPEC: [id number] LULY: 10/11/14-[address] [facility] [address]: Verenice LOPEZ REQ: [id number] RECD: 10/11/14 STATUS: ANDREW WHITE DR: [facility] Ina Bowers MD _ SOURCE: THROAT SPDESC: ORDERED: Rapid Strep A, Throat Beta Str QUERIES: Provider Requisition # Procedure Result Verified Site Rapid Strep A Final 10/11/14- 1323 ML Organism 1 Negative Strep Group A Antigen testing by enzyme immunoassay. The senior cost estimator and regulatory agencies both recommend that a throat culture for beta strep be performed if a Rapid Group A Strep assay yields a negative result. Therefore a culture will be automatically performed on all negative samples. Throat Beta Strep Culture Final 10/13/14- 0821 ML Negative For Group A Beta Streptococcus END OF REPORT * ML=Testing performed at Main Lab DEPARTMENT OF PATHOLOGY, [facility] [address] [place], [place] [address] Erlin Xiong M.D. Director [facility] # [id number] 40 RUN DATE: 10/11/14 [facility] LAB LIVE PAGE 1 RUN TIME: 9548 [facility] [employer] [place], [place] [address] Specimen Inquiry Name: JANET DILLARD : [address]: [facility] Acct: [id number] Unit: [id number] AGE: 24 Location: ED Re10/11/14 SEX: F Status: REG ER SPEC: [id number] LULY: 10/11/[address]: Verenice LOPEZ REQ: [id number] RECD: 10/11/14 STATUS: CHASTITY WHITE DR: [facility] Ina Bowers MD _ SOURCE: THROAT SPDESC: ORDERED: Rapid Strep A, Throat Beta Str QUERIES: Medent Number Procedure Result Verified Site Rapid Strep A Final 10/11/14- 1323 ML Organism 1 Negative Strep Group A Antigen testing by enzyme immunoassay. The senior cost estimator and regulatory agencies both recommend that a throat culture for beta strep be performed if a Rapid Group A Strep assay yields a negative result. Therefore a culture will be automatically performed on all negative samples. Throat Beta Strep Culture PENDING END OF REPORT * ML=Testing performed at Main Lab DEPARTMENT OF PATHOLOGY, [facility] [address] [place], [place] [address] Erlin Xiong M.D. Director [facility] # [id number] 41 Endocervical Endocervical 42 Female urine specimens have been self-validated by [facility] and have been granted conditional assay approval by [facility]. 43 RUN DATE: 08/26/14 [facility] LAB LIVE PAGE 1 RUN TIME: 1344 [facility] [employer] [address] [place], [place] [address] Specimen Inquiry Name: JANET DILLARD : [address]: Candy Hampton MD Acct: [id number] Unit: [id number] AGE: 24 Location: ED Re08/25/14 SEX: F Status: DEP ER SPEC: [id number] LULY: 08/25/14-[address] [facility] [address]: Candy Hampton MD REQ: [id number] RECD: 08/25/14 STATUS: ANDREW LOPEZ DR: Ina Bowers MD _ SOURCE: VAGINAL SPDESC: ORDERED: Siobhan,Yeast DNA Procedure Result Verified Site Gardnerella/Yeast: Vaginal DNA Final 08/26/14- 1344 ML Organism 1 Negative Gardnerella Organism 2 Negative Amarilis END OF REPORT * ML=Testing performed at Main Lab DEPARTMENT OF PATHOLOGY, [address] [place] [address] Erlin Xiong M.D. Director [facility] # [id number] 44 Please note: The following may produce a false positive D Dimer test: - Rheumatoid factor greater than 60 IU/ml - Plasma hemoglobin greater than 0.05 gm/dl - Bilirubin greater than 50 mg/dl - Lipids greater than 1000 mg/dl - FDP greater than 20 ug/ml 45 Potassium reference range changed effective 08/09/14 46 Because ethnic data is not always readily available, this report includes an eGFR for both -Americans and non- Americans. The National Kidney Disease Education Program (NKDEP) does not endorse the use of the MDRD equation for patients that are not between the ages of 18 and 70, are , have extremes of body size, muscle mass, or nutritional status, or are non- or non-. According to the National Kidney Foundation, irrespective of diagnosis, the stage of the disease is based on the level of kidney function: Stage Description GFR(mL/min/1.73 m(2)) 1 Kidney damage with normal or decreased GFR 90 2 Kidney damage with mild decrease in GFR 60-89 3 Moderate decrease in GFR 30-59 4 Severe decrease in GFR 15-29 5 Kidney failure <15 (or dialysis) 47 *Ascorbic acid is present which may interfere with detection of blood. 48 RUN DATE: 08/27/14 [facility] LAB LIVE PAGE 1 RUN TIME: 1023 [address], [place] [address] Specimen Inquiry Name: JANET DILLARD : [address]: Candy Hampton MD Acct: [id number] Unit: [id number] AGE: 24 Location: ED Re08/25/14 SEX: F Status: DEP ER SPEC: [id number] LULY: 08/25/14-[address]: Candy Hampton MD REQ: [id number] RECD: 08/25/14 STATUS: COMP CINDY DR: Ina Bowers MD _ SOURCE: URINE [facility]: ORDERED: Urine Culture Procedure Result Verified Site Urine Culture Final 08/27/14- 1023 ML Organism 1 NORMAL JOSE L [place] Count 10-25,000 (Moderate) CFU/ML END OF REPORT * ML=Testing performed at Main Lab DEPARTMENT OF PATHOLOGY, [facility] [address] [place], [place] [address] Erlin Xiong M.D. Director [facility] # [id number] 49 RUN DATE: 08/10/14 [facility] LAB LIVE PAGE 1 RUN TIME: 7536 [facility] [employer] [address] [place], [place] [address] Specimen Inquiry Name: NEEMAJANET PITTMAN : [address]: Alexys Álvarez DO Acct: [id number] Unit: [id number] AGE: 24 Location: ED Re08/10/14 SEX: F Status: REG ER SPEC: [id number] LULY: 08/10/[address]: Alexys Álvarez DO REQ: [id number] RECD: 08/10/14 STATUS: RES OTHR DR: Ina Bowers MD _ SOURCE: THROAT SPDESC: ORDERED: Rapid Strep A, Throat Beta Str QUERIES: Medent Number Procedure Result Verified Site Rapid Strep A Final 08/10/14- 1148 ML Organism 1 Negative Strep Group A Antigen testing by enzyme immunoassay. The senior cost estimator and regulatory agencies both recommend that a throat culture for beta strep be performed if a Rapid Group A Strep assay yields a negative result. Therefore a culture will be automatically performed on all negative samples. Throat Beta Strep Culture PENDING END OF REPORT * ML=Testing performed at Main Lab DEPARTMENT OF PATHOLOGY, [facility] [address] [place] [address] Erlin Xiong M.D. Director [facility] # [id number] 50 RUN DATE: 08/10/14 [facility] LAB LIVE PAGE 1 RUN TIME: 1149 [facility] [employer] [address] [place], [place] [address] Specimen Inquiry Name: JANET DILLARD : [address]: Alexys Álvarez DO Acct: [id number] Unit: [id number] AGE: 24 Location: ED Re08/10/14 SEX: F Status: REG ER SPEC: [id number] LULY: 08/10/[address]: Alexys Álvarez DO REQ: [id number] RECD: 08/10/14 STATUS: ANDREW WHITE DR: Ina Bowers MD _ SOURCE: THROAT SPDES: ORDERED: Rapid Strep A Procedure Result Verified Site Rapid Strep A Final 08/10/14- 1148 ML Organism 1 Negative Strep Group A Antigen testing by enzyme immunoassay. The senior cost estimator and regulatory agencies both recommend that a throat culture for beta strep be performed if a Rapid Group A Strep assay yields a negative result. Therefore a culture will be automatically performed on all negative samples. END OF REPORT * ML=Testing performed at Main Lab DEPARTMENT OF PATHOLOGY, [facility] [address] [place], [place] [address] Erlin Xiong M.D. Director CLIA # [id number] 51 RUN DATE: 08/12/14 [facility] LAB LIVE PAGE 1 RUN TIME: 1015 [facility] [address] [address] [place], [place] [address] Specimen Inquiry Name: JANTE DILLARD : [address]: Alexys Álvarez DO Acct: [id number] Unit: [id number] AGE: 24 Location: ED Re08/10/14 SEX: F Status: DEP ER SPEC: [id number] LULY: 08/10/14-[address]: Alexys Álvarez DO REQ: [id number] RECD: 08/10/14 STATUS: ANDREW WHITE DR: Ina Bowers MD _ SOURCE: THROAT SPDESC: ORDERED: Throat Culture Procedure Result Verified Site Throat Culture Final 08/12/14- 1015 ML Organism 1 STREP GROUP B Quantity 3+ Organism 2 NORMAL JOSE L Quantity 3+ Susceptibility testing of penicillins and other B-lactams approved by FDA for treatment of Streptococcus pyogenes (Group A Strep) and Streptococcus agalactiae (Group B Strep) is not necessary for clinical purposes and need not be done routinely, since as with vancomycin, resistant strains have not been recognized. (CLSI Q798-E53;p.66) Positive isolates will be saved for one week. Please call the Microbiology Laboratory if further susceptibility testing is needed. END OF REPORT * ML=Testing performed at Main Lab DEPARTMENT OF PATHOLOGY, [facility] [address] [place], [place] [address] Erlin Xiong M.D. Director [facility] # [id number] 52 Acute inflammation: >10.00 53 Because ethnic data is not always readily available, this report includes an eGFR for both -Americans and non- Americans. The National Kidney Disease Education Program (NKDEP) does not endorse the use of the MDRD equation for patients that are not between the ages of 18 and 70, are , have extremes of body size, muscle mass, or nutritional status, or are non- or non-. According to the National Kidney Foundation, irrespective of diagnosis, the stage of the disease is based on the level of kidney function: Stage Description GFR(mL/min/1.73 m(2)) 1 Kidney damage with normal or decreased GFR 90 2 Kidney damage with mild decrease in GFR 60-89 3 Moderate decrease in GFR 30-59 4 Severe decrease in GFR 15-29 5 Kidney failure <15 (or dialysis) 54 RUN DATE: 07/31/14 [facility] LAB LIVE PAGE 1 RUN TIME: 1120 [address] [place], [place] [address] Specimen Inquiry Name: JANET DILLARD : [address]: Ina Bowers MD Acct: [id number] Unit: [id number] AGE: 24 Location: [facility] Re07/30/14 SEX: F Status: REG REF SPEC: [id number] LULY: 07/30/14-[address]: Ina Bowers MD REQ: [id number] RECD: 07/30/14 STATUS: COMP _ SOURCE: VAGINAL SPDESC: ORDERED: Affirm QUERIES: Medent Number [id number] Procedure Result Verified Site Affirm Vaginal DNA Probe Final 07/31/14- 1120 ML Organism 1 Negative Trichomonas Organism 2 Negative Gardnerella Organism 3 Negative Amarilis The presence of G. vaginalis, although suggestive, is not diagnostic for bacterial vaginosis. Results should be interpreted in conjunction with other clinical and laboratory data available. Women with vaginal discharge should be evaluated for risk factors of cervicitis and pelvic inflammatory disease, toxic shock syndrome (S.aureus), and if present, evaluated for organisms not included in this assay such as N. gonorrhoeae, C. trachomatis, Mobiluncus, Mycoplasma and/or Prevotella. Mixed infections may occur. The performance of this test on patient specimens collected during or immediately after antimicrobial therapy is unknown. The presence or absence of Amarilis species, G. vaginalis or T. vaginalis cannot be used as a test for therapeutic success or failure. END OF REPORT * ML=Testing performed at Main Lab DEPARTMENT OF PATHOLOGY, [facility] [address] [place], [place] [address] Erlin Xiong M.D. Director [facility] # [id number] 55 RUN DATE: 08/01/14 [facility] LAB LIVE PAGE 1 RUN TIME: 6364 [facility] [employer] [place], [place] [address] Specimen Inquiry Name: JANET DILLARD : [address]: Ina Bowers MD Acct: [id number] Unit: [id number] AGE: 24 Location: [facility] Re07/30/14 SEX: F Status: REG REF SPEC: [id number] LULY: 07/30/14-[address] [facility] [address]: Ina Bowers MD REQ: [id number] RECD: 07/30/14 STATUS: COMP _ SOURCE: THROAT SPDESC: ORDERED: Throat Culture QUERIES: Medent Number [id number] Procedure Result Verified Site Throat Culture Final 08/01/14- 1137 ML Organism 1 NORMAL JOSE L Quantity 3+ END OF REPORT * ML=Testing performed at Main Lab DEPARTMENT OF PATHOLOGY, [facility] [place] [place] [address] Erlin Xiong M.D. Director [facility] # [id number] 56 RUN DATE: 07/16/14 [facility] LAB LIVE PAGE 1 RUN TIME: [address] [place] [address] Specimen Inquiry Name: JANET DILLARD : [address]: Ina Bowers MD Acct: [id number] Unit: [id number] AGE: 24 Location: [facility] Re07/14/14 SEX: F Status: REG REF SPEC: [id number] LULY: 07/14/14-[address] [facility] [address]: Ina Bowers MD REQ: [id number] RECD: 07/14/14 STATUS: COMP _ SOURCE: THROAT SPDESC: ORDERED: Throat Culture QUERIES: Medent Number [id number] Procedure Result Verified Site Throat Culture Final 07/16/14- 1153 ML Organism 1 STREP GRP A BY BACITRACIN DISC Quantity 2+ Organism 2 NORMAL JOSE L Quantity 2+ Throat cultures are clinically indicated to detect the presence of group A strep, arcanobacterium and yeast. In certain cases, predominating organisms will be reported. END OF REPORT * ML=Testing performed at Main Lab DEPARTMENT OF PATHOLOGY, [address] [place] [address] Erlin Xiong M.D. Director [facility] # [id number] 57 Acute inflammation: >10.00 58 *Ascorbic acid is present which may interfere with detection of blood. 59 Because ethnic data is not always readily available, this report includes an eGFR for both -Americans and non- Americans. The National Kidney Disease Education Program (NKDEP) does not endorse the use of the MDRD equation for patients that are not between the ages of 18 and 70, are , have extremes of body size, muscle mass, or nutritional status, or are non- or non-. According to the National Kidney Foundation, irrespective of diagnosis, the stage of the disease is based on the level of kidney function: Stage Description GFR(mL/min/1.73 m(2)) 1 Kidney damage with normal or decreased GFR 90 2 Kidney damage with mild decrease in GFR 60-89 3 Moderate decrease in GFR 30-59 4 Severe decrease in GFR 15-29 5 Kidney failure <15 (or dialysis) 60 RUN DATE: 06/30/14 [facility] LAB LIVE PAGE 1 RUN TIME: [address] [place] [address] Specimen Inquiry Name: JANET DILLARD : [address]: Twila Nesbitt MD Acct: [id number] Unit: [id number] AGE: 24 Location: [facility] Re06/29/14 SEX: F Status: DEP ER SPEC: [id number] LULY: 06/29/14-[address] [facility] [address]: Twila Nesbitt MD REQ: [id number] RECD: 06/29/14 STATUS: ANDREW WHITE DR: Margaux Thomas MD _ SOURCE: [facility]: ORDERED: Affirm QUERIES: Medent Number [id number] Procedure Result Verified Site Affirm Vaginal DNA Probe Final 06/30/14- 1133 ML Organism 1 Negative Trichomonas Organism 2 Negative Gardnerella Organism 3 Negative Amarilis The presence of G. vaginalis, although suggestive, is not diagnostic for bacterial vaginosis. Results should be interpreted in conjunction with other clinical and laboratory data available. Women with vaginal discharge should be evaluated for risk factors of cervicitis and pelvic inflammatory disease, toxic shock syndrome (S.aureus), and if present, evaluated for organisms not included in this assay such as N. gonorrhoeae, C. trachomatis, Mobiluncus, Mycoplasma and/or Prevotella. Mixed infections may occur. The performance of this test on patient specimens collected during or immediately after antimicrobial therapy is unknown. The presence or absence of Amarilis species, G. vaginalis or T. vaginalis cannot be used as a test for therapeutic success or failure. END OF REPORT * ML=Testing performed at Main Lab DEPARTMENT OF PATHOLOGY, [facility] [address] [place] [address] Erlin Xiong M.D. Director [facility] # [id number] 61 RUN DATE: 06/30/14 [facility] LAB LIVE PAGE 1 RUN TIME: 1407 [facility] [employer] [place], [place] [address] Specimen Inquiry Name: JANET DILLARD : [address]: Twila Nesbitt MD Acct: [id number] Unit: [id number] AGE: 24 Location: [facility] Re06/29/14 SEX: F Status: DEP ER SPEC: [id number] LULY: 06/29/14-[address] [facility] [address]: Twila Nesbitt MD REQ: [id number] RECD: 06/29/14 STATUS: ANDREW WHITE DR: Margaux Thomas MD _ SOURCE: [facility]IX [facility]: ORDERED: JEFERSON/Merary RNA QUERIES: Medent Number [id number] Procedure Result Verified Site Chlamydia Trachomatis RNA Final 06/30/14- 1406 ML NEGATIVE for Chlamydia trachomatis rRNA GC (N. gonorrhoeae) RNA Final 06/30/14- 1406 ML NEGATIVE for Neisseria gonorrhoeae rRNA A negative result does not preclude the presence of a C. trachomatis or N. gonorrhoeae infection because results are dependent on adequate specimen collection, absence of inhibitors, and sufficient rRNA to be detected. Test results may be affected by improper specimen collection, improper storage, technical error, or specimen mixup. Limitations of the Procedure: The Aptima Combo 2 Assay is not intended for the evaluation of suspected sexual abuse or for other medico-legal indications. For those patients for whom a false positive result may have adverse psychosocial impact, the [facility] recommends retesting by a method using an alternate technology. Therapeutic failure or success cannot be determined with the Aptima Combo 2 Assay since nucleic acid may persist following appropriate antimicrobial therapy. Results from the Aptima Combo 2 Assay should be interpreted in conjunction with other laboratory and clinical data available to the clinican. CONTINUED ON NEXT PAGE * ML=Testing performed at Main Lab DEPARTMENT OF PATHOLOGY, [facility] [address] [place], [place] [address] Erlin Xiong M.D. Director [facility] # [id number] RUN DATE: 06/30/14 [facility] LAB LIVE PAGE 2 RUN TIME: 1406 [facility] [employer] [place], [place] [address] Specimen Inquiry Patient: NEEMAJANET [id number] (Continued) Specimen: [id number] Collected: 06/29/14-1719 Received: 06/29/14-1853 (Continued) Procedure Result Verified Site GC (N. gonorrhoeae) RNA Final (continued) 06/30/14- 1406 Performance characteristics for detecting C. trachomatis and N. gonorrhoeae are derived from high prevalence populations. Positive results in low prevalence populations should be interpreted carefully with the understanding that the likelihood of a false positive may be higher than a true positive. END OF REPORT * ML=Testing performed at Main Lab DEPARTMENT OF PATHOLOGY, [address] [place] [address] Erlin Xiong M.D. Director [facility] # [id number] 62 within [address] Margaux Thomas 63 within [address] Margaux Thomas 64 within [address] Margaux Thomas 65 RUN DATE: 06/24/14 [facility] LAB LIVE PAGE 1 RUN TIME: [address] [place] [address] Specimen Inquiry Name: JANET DILLARD : [address]: Ina Bowers MD Acct: [id number] Unit: [id number] AGE: 24 Location: [facility] Re06/23/14 SEX: F Status: REG REF SPEC: [id number] LULY: 06/23/14-[address] [facility] [address]: Ina Bowers MD REQ: [id number] RECD: 06/23/14 STATUS: COMP _ SOURCE: VAGINAL SPDESC: ORDERED: Affirm QUERIES: Medent Number [id number] Procedure Result Verified Site Affirm Vaginal DNA Probe Final 06/24/14- 1346 ML Organism 1 Negative Trichomonas Organism 2 Negative Gardnerella Organism 3 POSITIVE AMARILIS The presence of G. vaginalis, although suggestive, is not diagnostic for bacterial vaginosis. Results should be interpreted in conjunction with other clinical and laboratory data available. Women with vaginal discharge should be evaluated for risk factors of cervicitis and pelvic inflammatory disease, toxic shock syndrome (S.aureus), and if present, evaluated for organisms not included in this assay such as N. gonorrhoeae, C. trachomatis, Mobiluncus, Mycoplasma and/or Prevotella. Mixed infections may occur. The performance of this test on patient specimens collected during or immediately after antimicrobial therapy is unknown. The presence or absence of Amarilis species, G. vaginalis or T. vaginalis cannot be used as a test for therapeutic success or failure. END OF REPORT * ML=Testing performed at Main Lab DEPARTMENT OF PATHOLOGY, [address] [place] [address] Erlin Xiong M.D. Director [facility] # [id number] 66 Because ethnic data is not always readily available, this report includes an eGFR for both -Americans and non- Americans. The National Kidney Disease Education Program (NKDEP) does not endorse the use of the MDRD equation for patients that are not between the ages of 18 and 70, are , have extremes of body size, muscle mass, or nutritional status, or are non- or non-. According to the National Kidney Foundation, irrespective of diagnosis, the stage of the disease is based on the level of kidney function: Stage Description GFR(mL/min/1.73 m(2)) 1 Kidney damage with normal or decreased GFR 90 2 Kidney damage with mild decrease in GFR 60-89 3 Moderate decrease in GFR 30-59 4 Severe decrease in GFR 15-29 5 Kidney failure <15 (or dialysis) 67 AM 8.7-22.4 PM <10 68 Because ethnic data is not always readily available, this report includes an eGFR for both -Americans and non- Americans. The National Kidney Disease Education Program (NKDEP) does not endorse the use of the MDRD equation for patients that are not between the ages of 18 and 70, are , have extremes of body size, muscle mass, or nutritional status, or are non- or non-. According to the National Kidney Foundation, irrespective of diagnosis, the stage of the disease is based on the level of kidney function: Stage Description GFR(mL/min/1.73 m(2)) 1 Kidney damage with normal or decreased GFR 90 2 Kidney damage with mild decrease in GFR 60-89 3 Moderate decrease in GFR 30-59 4 Severe decrease in GFR 15-29 5 Kidney failure <15 (or dialysis) 69 RUN DATE: 04/30/14 [facility] LAB LIVE PAGE 1 RUN TIME: 95[address] [place], [place] [address] Specimen Inquiry Name: JANET DILLARD : [address]: Margaux Thomas MD Acct: [id number] Unit: [id number] AGE: 23 Location: [facility] Re04/28/14 SEX: F Status: REG REF SPEC: [id number] LULY: 04/28/14-[address]: Margaux Thomas MD REQ: [id number] RECD: 04/28/14-183 STATUS: COMP _ SOURCE: URINE SPDESC: ORDERED: Urine Culture QUERIES: Medent Number [id number] Procedure Result Verified Site Urine Culture Final 04/30/14- 1150 ML Organism 1 NORMAL JOSE L [place] Count 1-10,000 (Few) CFU/ML END OF REPORT * ML=Testing performed at Main Lab DEPARTMENT OF PATHOLOGY, [address] [place] [address] Erlin Xiong M.D. Director [facility] # [id number] 70 RUN DATE: 04/09/14 [facility] LAB LIVE PAGE 1 RUN TIME: [address] [place] [address] Specimen Inquiry Name: JANET DILLARD : [address]: Margaux Thomas MD Acct: [id number] Unit: [id number] AGE: 23 Location: [facility] Re04/07/14 SEX: F Status: REG REF SPEC: [id number] LULY: 04/07/[address] [facility] [address]: Margaux Thomsa MD REQ: [id number] RECD: 04/07/14 STATUS: COMP _ SOURCE: URINE SPDESC: ORDERED: Urine Culture QUERIES: Medent Number [id number] Procedure Result Verified Site Urine Culture Final 04/09/14- 1104 ML Organism 1 NORMAL JOSE L [place] Count 10-25,000 (Moderate) CFU/ML END OF REPORT * ML=Testing performed at Main Lab DEPARTMENT OF PATHOLOGY, [facility] [address] [place] [address] Erlin Xiong M.D. Director [facility] # [id number] 71 RUN DATE: 03/20/14 [facility] LAB LIVE PAGE 1 RUN TIME: [address] [facility] Spectral Image [place], [place] [address] Specimen Inquiry Name: JANET DILLARD : [address]: Margaux Thomas MD Acct: [id number] Unit: [id number] AGE: 23 Location: [facility] Re03/19/14 SEX: F Status: REG REF SPEC: [id number] LULY: 03/19/14-[address] [facility] [address]: Margaux Thomas MD REQ: [id number] RECD: 03/19/14 STATUS: COMP _ SOURCE: VAGINAL SPDESC: ORDERED: Affirm QUERIES: Medent Number [id number] Procedure Result Verified Site Affirm Vaginal DNA Probe Final 03/20/14- 1012 ML Organism 1 Negative Trichomonas Organism 2 Negative Gardnerella Organism 3 POSITIVE AMARILIS The presence of G. vaginalis, although suggestive, is not diagnostic for bacterial vaginosis. Results should be interpreted in conjunction with other clinical and laboratory data available. Women with vaginal discharge should be evaluated for risk factors of cervicitis and pelvic inflammatory disease, toxic shock syndrome (S.aureus), and if present, evaluated for organisms not included in this assay such as N. gonorrhoeae, C. trachomatis, Mobiluncus, Mycoplasma and/or Prevotella. Mixed infections may occur. The performance of this test on patient specimens collected during or immediately after antimicrobial therapy is unknown. The presence or absence of Amarilis species, G. vaginalis or T. vaginalis cannot be used as a test for therapeutic success or failure. END OF REPORT * ML=Testing performed at Main Lab DEPARTMENT OF PATHOLOGY, [address] [place] [address] Erlin Xiong M.D. Director [facility] # [id number] 72 FASTING 10 HOUR 73 FASTING 10 HOUR 74 Normal Range 180 to 914 Indeterminate Range 145 to 180 Deficient Range <145 75 FASTING 10 HOUR 76 Because ethnic data is not always readily available, this report includes an eGFR for both -Americans and non- Americans. The National Kidney Disease Education Program (NKDEP) does not endorse the use of the MDRD equation for patients that are not between the ages of 18 and 70, are , have extremes of body size, muscle mass, or nutritional status, or are non- or non-. According to the National Kidney Foundation, irrespective of diagnosis, the stage of the disease is based on the level of kidney function: Stage Description GFR(mL/min/1.73 m(2)) 1 Kidney damage with normal or decreased GFR 90 2 Kidney damage with mild decrease in GFR 60-89 3 Moderate decrease in GFR 30-59 4 Severe decrease in GFR 15-29 5 Kidney failure <15 (or dialysis) 77 Desirable <150 Borderline high 150-199 High 200-499 Very High >500 78 Desirable <200 Borderline high 200-239 High >239 79 Low <40 Desirable: 40-60 High: >60 80 Desirable <100 Near Optimal 100-129 Borderline high 130-159 High 160-189 Very High >189 Procedures Date CPT Code Description Status 09/17/2014 47559 EKG Tracing & Interpretation Completed 07/30/2014 11547 ECHO Stress Test Incl Perf Contiuous ekg Monitoring Completed W/Phys Superv 07/07/2014 53840 Holter Monitoring 24 HR New Completed 06/26/2014 51099 ECHO Transthoracic, Real-Time 2D With Doppler And Color Completed Flow 06/12/2014 92947 EKG Tracing & Interpretation Completed Encounters Type Date Location Provider CPT E/M Dx Office Visit 06/07/2018 4:00p [facility] [place] [address] K08.89 [place] Office Visit 11/13/2017 10:40a [facility] [place] [address] N91.2 [place] R11.2 R19.7 F41.9 Office Visit 06/29/2017 10:40a [facility] [place] [address] L40.9 - [place] Office Visit 06/14/2016 1:40p [facility] [place] [address] B37.9 - [place] Office Visit 12/23/2015 12:10p [facility] Ina Bowers 19466 J01.90 - [place] M[place] Office Visit 07/22/2015 10:30a [facility] Ina Bowers 42022 J06.9 - [place] M.DLesa Office Visit 07/08/2015 11:10a [facility] Ina Bowers 84066 R10.32 - [place] MManny M54.5 Office Visit 05/07/2015 4:00p [facility] [place] [address] 626.0 [place] 788.69 465.9 Office Visit 01/22/2015 11:30a [facility] [place] [address] 463 - [place] Office Visit 09/17/2014 10:20a [facility] Blaine Pennington, [address] 401.9 M.D. 424.0 293.84 Office Visit 08/17/2014 11:30a [facility] [place] [address] 463 [place] Office Visit 08/03/2014 9:30a [facility] - JUAN Dash 78404 463 [place] 784.1 785.1 Office Visit 07/30/2014 9:50a [facility] Ina Bowers M.D. 57112 784.1 - [place] 623.5 626.4 Office Visit 07/30/2014 3:30p [facility] Blaine Pennington M.D. 51789 785.1 401.9 424.0 Office Visit 07/14/2014 2:30p [facility] - Ina Bowers M.D. 95831 462 [place] 285.9 Office Visit 06/23/2014 2:30p [facility] Ina Bowers M.D. 58511 623.5 - [place] 401.1 788.41 626.4 Office Visit 06/12/2014 9:00a [facility] Blaine Pennington M.D. 36678 706.1 786.50 300.02 401.1 785.1 780.4 Office Visit 05/14/2014 11:40a [facility] Jennifer Porter 68921 401.1 - Dominique Isaac 706.1 Office Visit 05/06/2014 12:10p [facility] Ina Bowers 33713 786.50 - Dominique Isaac 401.1 Office Visit 05/01/2014 1:20p [facility] Margaux Thomas M.D. 48221 401.1 - [place] 300.02 285.9 Office Visit 04/28/2014 3:40p [facility] Margaux Thomas M.D. 98225 788.41 - [place] 401.1 300.02 848.3 285.9 625.9 Office Visit 04/16/2014 9:20a [facility] Margaux Thomas M.D. 31527 401.1 - [place] 300.02 Office Visit 04/07/2014 4:00p [facility] Margaux Thomas M.D. 25053 599.0 - [place] 401.1 300.02 780.60 Office Visit 03/19/2014 3:50p [facility] Margaux Thomas M.D. 64866 616.10 - [place] 401.1 300.02 788.1 Office Visit 03/12/2014 4:40p [facility] Margaux Thomas M.D. 43999 300.02 - [place] 401.1 Office Visit 02/27/2014 10:00a [facility] Margaux Thomas M.D. 62402 401.1 - [place] Office Visit 02/26/2014 1:00p [facility] Margaux Thomas M.D. 95422 401.1 - [place] 300.02 V17.49 706.1 Plan of Care 07/26/2018 - Leeroy Lugo, NPJ06.9 Acute upper respiratory infection, unspecifiedNew Medication:Benzonatate 200 mgFlovent HFA 110 mcg/ActComments: Your symptoms are consistent with a viral upper respiratory infection. I recommend treating symptomatically. I have prescribed the cough medication we discussed. Start using the inhaled medication,. two puffs twice daily, for the next two weeks. Rinse your mouth after use. Drink plenty of fluids and try to rest as much as possible. If your symptoms worsen or do not improve please call the office.
[2018-08-05 10:42] VITALS: BP 136/82
== END 2018-08-05 10:40 | disposition home or self-care (01) ==
LOC: ED 10:08
DX: F41.9 Anxiety disorder, unspecified (principal); Z88.0 Allergy status to penicillin; F17.210 Nicotine dependence, cigarettes, uncomplicated; I10 Essential (primary) hypertension
CPT/HCPCS: 99282; A9270-GY

== ENCOUNTER 2018-10-09 12:07 | Emergency (ER) | payer OTHER ==
[2018-10-09 12:23] VITALS: BP 134/74
[2018-10-09] MEDS ORDERED: cefTRIAXone VIAL(*) 250 MG VIAL IM ONE (13:05)
[2018-10-09] MEDS ORDERED: Lidocaine 1%* 5 ML VIAL INJ ONE (13:06)
[2018-10-09] MEDS ORDERED: Azithromycin TAB* 250 MG PO ONE (13:07)
--- NOTE | 2018-10-09 13:13 | UC ---
Complaint Female HPI - HPI Summary HPI Summary: 1. PATIENT HERE COMPLAINING OF SEVERAL DAYS OF PELVIC PAIN, URINARY FEQUENCY/ URGENCY, VAGINAL IRRITATION AND DISCHARGE. STATES SHE WAS DIAGNOSED WITH CHLAMYDIA A COUPLE OF MONTHS AGO AND WONDERS IF SHE HAS IT AGAIN. SHE CONTINUED TO HAVE UNPROTECTED SEX WITH HER BOYFRIEND AT THAT TIME AND HE WAS NEVER TREATED. THEY BROKE UP AND SHE REPORTS LAST SEXUAL INTERCOURSE ABOUT 1 MONTH AGO. 2. SHE IS ALSO CONCERNED THAT SHE HAS HAD RIGHT EYE PAIN FOR ABOUT 3 MONTHS. DENIES ANY VISUAL DISTURBANCE BUT SAYS SHE HAS DISCOMFORT WHEN BLINKING AND MOVING HER EYE. PAIN SUBSIDES OVER THE COURSE OF THE DAY BUT THEN IS BACK THE NEXT MORNING. NO REDNESS OF THE EYE. NO DISCHARGE FROM THE EYE. DOES NOT WEAR CONTACT LENSES OR GLASSES. - History Of Current Complaint Chief Complaint: UCGU Stated Complaint: EYE PAIN Time Seen by Provider: 10/09/18 12:45 Hx Obtained From: Patient Hx Last Menstrual Period: 09/17/18 Onset/Duration: Gradual Onset, Lasting Days, Still Present Timing: Constant, Lasting Days Severity Initially: Moderate Severity Currently: Moderate Pain Intensity: 7 Pain Scale Used: 0-10 Numeric Character: Sharp Aggravating Factor(s): Nothing Alleviating Factor(s): Nothing Associated Signs And Symptoms: Negative: Fever, Back Pain, Vaginal Bleeding/ Discharge, Vaginal Discharge, Nausea - Allergies/Home Medications Allergies/Adverse Reactions: Allergies Allergy/AdvReac Type Severity Reaction Status Date / Time Penicillins Allergy Hives Verified 10/09/18 12:24 Sulfa (Sulfonamide Allergy Hives Verified 10/09/18 12:24 Antibiotics) Home Medications: Home Medications Escitalopram (NF) [Lexapro 10 mg (NF)] 10 mg PO DAILY 10/09/18 [History Confirmed 10/09/18] clonazePAM [Clonazepam] 1 mg PO BID 10/09/18 [History Confirmed 10/09/18] PMH/Surg Hx/FS Hx/Imm Hx Previously Healthy: Yes - Surgical History Surgical History: Yes Surgery Procedure, Year, and Place: RIGHT OOPHERECTOMY 2017 - Family History Known Family History: Positive: Cardiac Disease - Not immediate family, uncle, Hypertension Negative: Blood Disorder - blood clots - Social History Alcohol Use: None Alcohol Amount: quit 20 days ago Substance Use Type: None Substance Use Comment - Amount & Last Used: quit M 25 days ago Smoking Status (MU): Light Every Day Tobacco Smoker Type: Cigarettes Amount Used/How Often: 1/2 pp day Length of Time of Smoking/Using Tobacco: 9 years Have You Smoked in the Last Year: No When Did the Patient Quit Smoking/Using Tobacco: 06/2013 Household Exposure Type: Cigarettes - Immunization History Most Recent Influenza Vaccination: about 2 months ago Most Recent Tetanus Shot: 11/25/13 Most Recent Pneumonia Vaccination: never Review of Systems All Other Systems Reviewed And Are Negative: Yes Constitutional: Positive: Negative Skin: Positive: Other - "CYSTS" INNER THIGHS Eyes: Positive: Other - RIGHT EYE PAIN. Negative: Drainage, Eye Redness Respiratory: Positive: Negative Cardiovascular: Positive: Negative Gastrointestinal: Positive: Negative Genitourinary: Positive: Frequency, Urgency, Vaginal/Penile Itching, Vaginal/ Penile Discharge Physical Exam Triage Information Reviewed: Yes Appearance: Well-Appearing, No Pain Distress, Well-Nourished Vital Signs: Initial Vital Signs Temp 99.0 F 10/09/18 12:15 Pulse 86 10/09/18 12:15 Resp 18 10/09/18 12:15 BP 134/74 10/09/18 12:15 Pulse Ox 99 10/09/18 12:15 Laboratory Tests 10/09/18 10/09/18 13:06 13:08 POC Urine Color Yellow POC Urine Clarity Cloudy POC Urine pH 7.5 POC Ur Specif [employer] 1.025 POC Urine Protein Negative POC Ur Glucose (UA) Negative POC Urine Ketones Negative POC Urine Blood Negative POC Urine Nitrite Negative POC Urine Bilirubin Negative POC Urine Urobilinogen 0.2 POC U Leukocyte Esteras Trace A POC Ur Test Negative Vital Signs Reviewed: Yes Eyes: Positive: Conjunctiva Clear ENT: Positive: Hearing grossly normal Neck: Positive: Supple, Nontender, No Lymphadenopathy Respiratory Exam: Normal Cardiovascular Exam: Normal Abdomen Description: Positive: Nontender, Soft Pelvic Exam: Positive: Bimanual Exam Normal, No Masses, Discharge - THIN, WHITE D/C IN VAGINAL VAULT Musculoskeletal: Positive: No Edema Neurological: Positive: Alert Psychological: Positive: Age Appropriate Behavior Skin: Positive: Other - SCARRING BILATERAL INNER THIGHS WITH SCATTERED RUBBERY, PAINLESS PAPULES Complaint Female Dx - Course Course Of Treatment: PATIENT TREATED FOR GONORRHEA AND CHLAMYDIA TODAY WITH ROCEPHIN 250 MG IM AND AZITHROMYCIN 1000 MG BY MOUTH. STRONGLY ADVISED AGAINST ANY SEXUAL ACTIVITY FOR AT LEAST 1 WEEK AFTER TREATMENT. ALWAYS USE BARRIER METHODS OF CONTRACEPTION. SWABS TAKEN TODAY FOR VAGINITIS WELL GONORRHEA AND CHLAMYDIA. BLOOD DRAWN FOR HIV AND SYPHILIS. URINE GROSSLY UNREMARKABLE. SENT FOR CULTURE. WE WILL CALL THE PATIENT IF SHE REQUIRES TREATMENT FOR UTI. METRONIDAZOLE FOR PRESUMPTIVE BV. EYE EXAM IS NORMAL TODAY. HAVE REFERRED PATIENT TO OPHTHALMOLOGY FOR FURTHER EVALUATION OF HER PERSISTENT RIGHT EYE PAIN. CONCERN FOR HIDRADENITIS SUPPURATIVA. PT ADVISED TO FOLLOW-UP WITH DERM. - Differential Dx/Diagnosis Provider Diagnosis: Pelvic pain, Concern about STD in female without diagnosis, Pain of right eye Discharge - Sign-Out/Discharge Documenting (check all that apply): Patient Departure All imaging exams completed and their final reports reviewed: No Studies - Discharge Plan Condition: Stable Disposition: HOME Prescriptions: metroNIDAZOLE [Flagyl 500 MG TAB] 500 mg PO BID #14 tab Patient Education Materials: Sexually Transmitted Diseases (ED), Pelvic Pain in Women (ED), Eye Pain (ED), Hidradenitis Suppurativa (ED) Forms: *Work Release Referrals: Ina Bowers MD [Primary Care Provider] - If Needed Andres Martinez MD [Medical Doctor] - As Soon As Possible Additional Instructions: YOU HAVE BEEN TREATED TODAY FOR GONORRHEA AND CHLAMYDIA TODAY WITH ROCEPHIN 250 MG IM AND AZITHROMYCIN 1000 MG BY MOUTH. NO SEX FOR AT LEAST 1 WEEK. ALWAYS USE BARRIER METHODS OF CONTRACEPTION. SWABS TAKEN TODAY FOR VAGINITIS WELL GONORRHEA AND CHLAMYDIA. BLOOD DRAWN FOR HIV AND SYPHILIS. URINE GROSSLY UNREMARKABLE. SENT FOR CULTURE. WE WILL CALL YOU IF YOU REQUIRE TREATMENT FOR UTI. TEST NEGATIVE. BASED ON YOUR SYMPTOMS, EXAM AND HISTORY YOU MAY HAVE BV. TAKE THE METRONIDAZOLE TWICE DAILY X 7 DAYS. NO ALCOHOL AT ALL WHILE ON THIS MEDICATION. YOUR EYE EXAM IS NORMAL TODAY. CALL OPHTHALMOLOGY FOR FURTHER EVALUATION OF YOUR PERSISTENT RIGHT EYE PAIN. [facility] [place] Address: [address], [place] [address] THE LESIONS ON YOUR INNER THIGHS MAY BE DUE TO A CONDITION CALLED HIDRADENITIS SUPPURATIVA. CALL DERM FOR AN APPT FOR EVALUATION. DERMATOLOGY IN [place] DR. SUSSY DONOVAN [facility], [facility] [address]; [address] [place] [address] Dr. Georgia Mohamud Address: [address] [place] [address] DR. YOHANNES HEDRICK [facility] Dermatology [address] [place] [address] [address] IN [place] Dr. Jesi Tran DERMATOLOGY IN [place] DR. SHASHI REID [phone] - Billing Disposition and Condition Condition: STABLE Disposition: Home
[2018-10-10 13:04] LABS: Trichomonas vaginalis Result Negative (Negative)
[2018-10-10 13:09] LABS: Neisseria gonorrhoeae (GC) RNA Negative (Negative)
--- NOTE | 2018-10-11 14:23 | UC ---
- Progress Note Progress Note: PT CALLED ABOUT HER LABS. ADVISED THAT SHE IS POSITIVE FOR BV. ALL ELSE NEGATIVE. CONTINUE METRONIDAZOLE PRESCRIBED AND FOLLOW-UP IF NEEDED. Course/Dx - Diagnoses Provider Diagnoses: Pelvic pain, Concern about STD in female without diagnosis, Pain of right eye Discharge - Sign-Out/Discharge Documenting (check all that apply): Post-Discharge Follow Up All imaging exams completed and their final reports reviewed: No Studies - Discharge Plan Condition: Stable Disposition: HOME Prescriptions: metroNIDAZOLE [Flagyl 500 MG TAB] 500 mg PO BID #14 tab Patient Education Materials: Sexually Transmitted Diseases (ED), Pelvic Pain in Women (ED), Eye Pain (ED), Hidradenitis Suppurativa (ED) Forms: *Work Release Referrals: Ina Bowers MD [Primary Care Provider] - If Needed Anders Martinez MD [Medical Doctor] - As Soon As Possible Additional Instructions: YOU HAVE BEEN TREATED TODAY FOR GONORRHEA AND CHLAMYDIA TODAY WITH ROCEPHIN 250 MG IM AND AZITHROMYCIN 1000 MG BY MOUTH. NO SEX FOR AT LEAST 1 WEEK. ALWAYS USE BARRIER METHODS OF CONTRACEPTION. SWABS TAKEN TODAY FOR VAGINITIS WELL GONORRHEA AND CHLAMYDIA. BLOOD DRAWN FOR HIV AND SYPHILIS. URINE GROSSLY UNREMARKABLE. SENT FOR CULTURE. WE WILL CALL YOU IF YOU REQUIRE TREATMENT FOR UTI. TEST NEGATIVE. BASED ON YOUR SYMPTOMS, EXAM AND HISTORY YOU MAY HAVE BV. TAKE THE METRONIDAZOLE TWICE DAILY X 7 DAYS. NO ALCOHOL AT ALL WHILE ON THIS MEDICATION. YOUR EYE EXAM IS NORMAL TODAY. CALL OPHTHALMOLOGY FOR FURTHER EVALUATION OF YOUR PERSISTENT RIGHT EYE PAIN. [facility] Address: [address] [place] [address] THE LESIONS ON YOUR INNER THIGHS MAY BE DUE TO A CONDITION CALLED HIDRADENITIS SUPPURATIVA. CALL DERM FOR AN APPT FOR EVALUATION. DERMATOLOGY IN [place] DR. SUSSY DONOVAN [facility], [facility] [address]; [address] [place] [address] Dr. Georgia Mohamud Address: [address] [place] [address] DR. YOHANNES HEDRICK [facility] D[facility]atology [address] [place] [address] [place] [address] Jesi Tran DERMATOLOGY IN [place] DR. SHASHI REID [phone] - Billing Disposition and Condition Condition: STABLE Disposition: Home
== END 2018-10-09 14:18 | disposition home or self-care (01) ==
LOC: UCEAST 12:07
DX: R10.2 Pelvic and perineal pain (principal); Z20.2 Contact with and (suspected) exposure to infections with a predominantly sexual mode of transmission; H57.11 Ocular pain, right eye; N76.0 Acute vaginitis; Z88.0 Allergy status to penicillin; Z88.2 Allergy status to sulfonamides; F17.210 Nicotine dependence, cigarettes, uncomplicated
CPT/HCPCS: 36415; 81003; 84702; 86592; 86703; 87077; 87086; 87480; 87491; 87510; 87591; 87661; 96372; 99212; A9270-GY; G0463; J0696

== ENCOUNTER 2018-11-22 08:50 | Emergency (ER) | payer OTHER ==
[2018-11-22] MEDS ORDERED: Ibuprofen TAB* 200 MG PO ONE (09:22)
[2018-11-22 09:33] LABS: Urine Appearance Cloudy; Urine Bilirubin Negative (Negative); Urine Blood Negative (Negative); Urine Color Yellow; Urine Glucose Negative (Negative); Urine Ketones 1+ (Negative); Urine Nitrite Negative (Negative); Urine Protein Negative (Negative); Urine Specific Gravity 1.031 (1.010-1.030); Urine Urobilinogen Negative (Negative)
[2018-11-22 09:45] LABS: ABS Basophils 0 10^3/ul (0-0.2); ABS Eosinophils 0.1 10^3/ul (0-0.6); ABS Lymphocytes 1.6 10^3/ul (1.0-4.8); ABS Monocytes 0.6 10^3/ul (0-0.8); ABS Neutrophils 3.6 10^3/ul (1.5-7.7); ABS Nucleated RBC 0 10^3/ul; Eosinophil % 1.3 %; Hematocrit 40 % (35-47); Hemoglobin 13.3 g/dl (12.0-16.0); Lymphocyte % 27.7 %; Mean Corpuscular HGB Conc 34 g/dl (31-36); Mean Corpuscular Hemoglobin 31 pg (27-31); Mean Corpuscular Volume 94 fL (80-97); Mean Platelet Volume 7.9 fL (7.4-10.4); Nucleated Red Blood Cells % 0.1; Platelet Count 209 10^3/ul (150-450); Red Blood Count 4.25 10^6/ul (4.00-5.40); Red Cell Distribution Width 13 % (10.5-15); White Blood Count 5.9 10^3/ul (3.5-10.8)
[2018-11-22 09:59] LABS: Albumin 4.4 g/dL (3.2-5.2); BUN/Creatinine Ratio 29.2 (8-20); C Reactive Protein 2.56 mg/L (<8.01); Calcium 9.2 mg/dL (8.6-10.3); EGFR African American 133.3 (>60); EGFR Non-African American 110.2 (>60); Globulin 2.2 g/dL (2-4); Potassium 3.6 mmol/L (3.5-5.0); Total Bilirubin 0.4 mg/dL (0.2-1.0); Total Protein 6.6 g/dL (6.4-8.9)
[2018-11-22 10:01] VITALS: BP 112/65
[2018-11-22] MEDS ORDERED: Fluconazole 150 MG TAB PO ONE (10:09)
--- NOTE | 2018-11-22 10:10 | ED ---
Abdominal Pain/Female - HPI Summary HPI Summary: Patient is a 28-year-old female presenting to the ED with feelings of pressure and decreased urination over the course of 2-3 days. She denies any back pain. Denies any nausea, vomiting, diarrhea, constipation. She's had UTIs in the past, however denies any burning. She feels she is unable to an T her bladder completely. 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 She does endorse mild tenderness to the left side. She states this feels different than her previous right torsion. She is not taking any medication for the discomfort. She does have a history of easy infections and endorses white vaginal discharge which is non-malodorous. Denies any erythema to the vaginal bird. She states this is similar to her previous yeast infection episodes. - History of Current Complaint Chief Complaint: EDAbdPain Stated Complaint: ABD PAIN Time Seen by Provider: 11/22/18 09:08 Hx Obtained From: Patient Hx Last Menstrual Period: 09/17/18 ?: No Onset/Duration: Sudden Onset Timing: Constant Severity Initially: Mild Severity Currently: Mild Pain Intensity: 6 Pain Scale Used: 0-10 Numeric Location: Suprapubic Radiates: No Character: Dull Aggravating Factor(s): Nothing Alleviating Factor(s): Nothing Associated Signs and Symptoms: Positive: Negative - Risk Factors Ectopic Risk Factor: Negative Ovarian Torsion Risk Factor: Reproductive Age, Ovarian Cysts/Tumors Allergies/Adverse Reactions: Allergies Allergy/AdvReac Type Severity Reaction Status Date / Time Penicillins Allergy Hives Verified 10/09/18 12:24 Sulfa (Sulfonamide Allergy Hives Verified 10/09/18 12:24 Antibiotics) PMH/Surg Hx/FS Hx/Imm Hx Previously Healthy: Yes Endocrine/Hematology History: Denies: Hx Diabetes, Hx Thyroid Disease Cardiovascular History: Reports: Other Cardiovascular Problems/Disorders - pt developed HTN after giving 12 weeks Denies: Hx Congestive Heart Failure, Hx Hypertension Respiratory History: Denies: Hx Asthma, Hx Chronic Obstructive Pulmonary Disease (COPD) GI History: Reports: Other GI Disorders - pt states she has acid reflux after Denies: Hx Ulcer History: Reports: Hx Renal Disease - preeclampsia, Other Problems/ Disorders - pt had preclampsia with protein in urine Neurological History: Reports: Other Neuro Impairments/Disorders - pt c/o dizziness and feeling pressure in head Psychiatric History: Reports: Hx Anxiety, Hx Depression - Surgical History Surgery Procedure, Year, and Place: RIGHT OOPHERECTOMY 2018 - Immunization History Date of Tetanus Vaccine: Up to Date Date of Influenza Vaccine: None Hx Pertussis Vaccination: No Immunizations Up to Date: Yes Infectious Disease History: No Infectious Disease History: Denies: Hx Clostridium Difficile, Hx Hepatitis, Hx Human Immunodeficiency Virus (HIV), Hx of Known/Suspected MRSA, Hx Shingles, Hx Tuberculosis, Hx Known/ Suspected VRE, Hx Known/Suspected VRSA, History Other Infectious Disease, Traveled Outside the [place] in Last 30 Days - Family History Known Family History: Positive: Cardiac Disease - Not immediate family, uncle, Hypertension Negative: Blood Disorder - blood clots - Social History Occupation: Unemployed Lives: With Family Alcohol Use: None Alcohol Amount: quit 20 days ago Hx Substance Use: Yes Substance Use Type: Reports: None Substance Use Comment - Amount & Last Used: quit M 25 days ago Hx Tobacco Use: Yes Smoking Status (MU): Light Every Day Tobacco Smoker Type: Cigarettes Amount Used/How Often: 1/2 pp day Length of Time of Smoking/Using Tobacco: 9 years Have You Smoked in the Last Year: No Review of Systems Constitutional: Negative Negative: Fever, Chills, Fatigue, Skin Diaphoresis Negative: Palpitations, Chest Pain Negative: Shortness Of Breath, Cough Positive: Abdominal Pain - suprapubic. Negative: Vomiting, Diarrhea, Nausea Positive: see HPI, pain, other - white vaginal discharge without pain non- malodorous, history of these infections. Negative: burning, dysuria, discharge , frequency, flank pain, hematuria Musculoskeletal: Negative Skin: Negative All Other Systems Reviewed And Are Negative: Yes Physical Exam Triage Information Reviewed: Yes Vital Signs On Initial Exam: Initial Vitals Temp Pulse Resp BP Pulse Ox 98.5 F 88 17 123/66 96 11/22/18 08:59 11/22/18 08:59 11/22/18 08:59 11/22/18 08:59 11/22/18 08:59 Vital Signs Reviewed: Yes Appearance: Positive: Well-Appearing, Well-Nourished Skin: Positive: Warm, Skin Color Reflects Adequate Perfusion Head/Face: Positive: Normal Head/Face Inspection Eyes: Positive: EOMI, MANOHAR, Conjunctiva Clear Neck: Positive: Supple, No Lymphadenopathy Respiratory/Lung Sounds: Positive: Clear to Auscultation, Breath Sounds Present Cardiovascular: Positive: Pulses are Symmetrical in both Upper and Lower Extremities Abdomen Description: Positive: Nontender, Soft. Negative: CVA Tenderness (R), CVA Tenderness (L), Hepatomegaly, McBurney's Point Tenderness, Peritoneal Signs , Pulsatile Mass, Splenomegaly Bowel Sounds: Positive: Present Pelvic Exam: Positive: Other - Pelvic examination is not performed Musculoskeletal: Positive: Strength/ROM Intact Neurological: Positive: Sensory/Motor Intact, Alert, Oriented to Person Place, Time, Speech Normal Psychiatric: Positive: Normal, Affect/Mood Appropriate AVPU Assessment: Alert Diagnostics - Vital Signs Vital Signs Temp Pulse Resp BP Pulse Ox 11/22/18 10:00 72 97 11/22/18 09:42 73 112/65 97 11/22/18 09:13 89 96 11/22/18 09:12 86 121/71 96 11/22/18 08:59 98.5 F 88 17 123/66 96 - Laboratory Lab Results: Lab Results 11/22/18 11/22/18 11/22/18 Range/Units 09:10 09:33 09:33 WBC 5.9 (3.5-10.8) 10^3/ul RBC 4.25 (4.00-5.40) 10^6/ul Hgb 13.3 (12.0-16.0) g/dl Hct 40 (35-47) % MCV 94 (80-97) fL MCH 31 (27-31) pg MCHC 34 (31-36) g/dl RDW 13 (10.5-15) % Plt Count 209 (150-450) 10^3/ul MPV 7.9 (7.4-10.4) fL Neut % (Auto) 61.2 % Lymph % (Auto) 27.7 % Garza % (Auto) 9.5 % Eos % (Auto) 1.3 % Baso % (Auto) 0.3 % Absolute Neuts (auto) 3.6 (1.5-7.7) 10^3/ul Absolute Lymphs (auto) 1.6 (1.0-4.8) 10^3/ul Absolute Monos (auto) 0.6 (0-0.8) 10^3/ul Absolute Eos (auto) 0.1 (0-0.6) 10^3/ul Absolute Basos (auto) 0 (0-0.2) 10^3/ul Absolute Nucleated RBC 0 10^3/ul Nucleated RBC % 0.1 Sodium 138 (135-145) mmol/L Potassium 3.6 (3.5-5.0) mmol/L Chloride 109 (101-111) mmol/L Carbon Dioxide 24 (22-32) mmol/L Anion Gap 5 (2-11) mmol/L BUN 19 (6-24) mg/dL Creatinine 0.65 (0.51-0.95) mg/dL Est GFR ( Amer) 133.3 (>60) Est GFR (Non-Af Amer) 110.2 (>60) BUN/Creatinine Ratio 29.2 H (8-20) Glucose 95 (70-100) mg/dL Calcium 9.2 (8.6-10.3) mg/dL Total Bilirubin 0.40 (0.2-1.0) mg/dL AST 11 L (13-39) U/L ALT 9 (7-52) U/L Alkaline Phosphatase 65 (34-104) U/L C-Reactive Protein 2.56 (<8.01) mg/L Total Protein 6.6 (6.4-8.9) g/dL Albumin 4.4 (3.2-5.2) g/dL Globulin 2.2 (2-4) g/dL Albumin/Globulin Ratio 2.0 (1-3) Urine Color Yellow Urine Appearance Cloudy Urine pH 5.0 (5-9) Ur Specific Pearson 1.031 H (1.010-1.030) Urine Protein Negative (Negative) Urine Ketones 1+ A (Negative) Urine Blood Negative (Negative) Urine Nitrate Negative (Negative) Urine Bilirubin Negative (Negative) Urine Urobilinogen Negative (Negative) Ur Leukocyte Esterase Negative (Negative) Urine Glucose Negative (Negative) Urine Ascorbic Acid * A (Negative) Result Diagrams: 11/22/18 09:33 11/22/18 09:33 Lab Statement: Any lab studies that have been ordered have been reviewed, and results considered in the medical decision making process. Abdominal Pain Fem Course/Dx - Course Course Of Treatment: During the course of treatment, the patient is evaluated for feeling of not emptying her bladder completely, abdominal pressure. Patient has a history of [place] infections. UA obtained which is normal. Bladder scan obtained which shows 17 mL. She does have a history of a right nephrectomy due to a partial torsion, however I am not concerned about that on this visit as patient has a pain scale of 2/10 which is been present 3 days. She also did not have a cyst on her left ovary according to last ultrasound. I did discuss with the patient if she develops any worsening symptoms, or pain to the left or right lower abdomen she needs return to the ED immediately. She is given ibuprofen 6 her milligrams while in the ED. She is also given Diflucan for her possible yeast infection. - Diagnoses Differential Diagnosis: Positive: Urinary Tract Infection, Other - Ovarian cyst , suprapubic tenderness, recent infection, BV Provider Diagnoses: Yeast infection Discharge - Sign-Out/Discharge Documenting (check all that apply): Patient Departure Patient Received Moderate/Deep Sedation with Procedure: No - Discharge Plan Condition: Stable Disposition: HOME Referrals: Ina Bowers MD [Primary Care Provider] - - Billing Disposition and Condition Condition: STABLE Disposition: Home
== END 2018-11-22 11:23 | disposition home or self-care (01) ==
LOC: ED 08:50
DX: B37.3 Candidiasis of vulva and vagina (principal); F17.210 Nicotine dependence, cigarettes, uncomplicated; Z88.0 Allergy status to penicillin; Z88.2 Allergy status to sulfonamides
CPT/HCPCS: 36415; 80053; 81003; 85025; 86140; 99282; A9270-GY

== ENCOUNTER → 2019-02-06 16:01 | Emergency (ER) | payer OTHER ==
[~2019-02-06 16:01] MED LIST changes: +Fluconazole 150 MG TAB PO ONE; -Ibuprofen TAB* 600 MG PO ONE
--- OUTSIDE RECORDS SUMMARY | 2019-02-06 16:18 | XMS REPORT | Continuity of Care Document ---
:1990 External Reference #:[id number] Author Name YiCiroJustina Care Team Providers Name Role Phone Ina Bowers MD Primary Care Physician Unavailable Payers Date Identification Numbers Payment Provider Subscriber Policy Number: [id number] [facility] Janet Dillard PayID: [id number] [address] [place] [address] Policy Number: [id number] Medicaid [place] Janet Dillard PayID: [id number] [address] [place] [address] Advance Directives Description No Information Available Problems Resolved Problems Provider Date Supervison Of Normal Other RODRÍGUEZ Oconnor Onset: 07/31/2013 Resolved: 08/10/2015 Family History Date Family Member(s) Observation Comments Father Insulin Dependent Diabetes Father due to Pneumonia () Father Liver Disease Father Alcoholism Mother Anxiety Mother Anemia Children 1 First Son A&W Siblings None Paternal Grandfather Diabetes Paternal Grandfather due to Diabetes () Paternal Grandmother Anxiety Paternal Grandmother due to Stroke () Paternal Grandmother Schizophrenia Maternal Grandfather due to Lung Cancer () Maternal Grandmother Arthritis Social History Type Date Description Comments Sex Unknown Education Highest Level Completed Is Ged Marital Status Engaged Lives With Son Lives With Fiance Pets 1 cat 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 Cigarette Use Current Cigarette Smoker 1/2 Pack Daily ETOH Use Denies 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 Recreational Drug Use Denies Drug Use Tobacco Use Start: Unknown Patient is a current smoker, smokes every day Smoking Status Reviewed: 02/04/19 Patient is a current smoker, smokes every day Exercise Type/Frequency Exercises regularly Seat Belt/Car Seat Always uses seat belt Currently Active Patient is currently sexually active Contraceptive Methods None STD's 2018 Chlamydia STD's Herpes un diagnosed Allergies, Adverse Reactions, Alerts Active Allergies Reaction Severity Comments Date Penicillin Hives Severe 07/31/2013 Sulfa Hives Severe 07/31/2013 Medications Active Medications SIG Qnty Indications Ordering Provider Date Clonazepam Unknown Lexapro Unknown Lo Loestrin Fe Unknown History Medications Metrogel-Vaginal 1 applicator 1TX N76.0 [facility], 10/04/2015 - 0.75% Gel every night at [facility] 10/08/2015 bedtime x 5 days Lo Loestrin Fe 1 by mouth every 3mo [facility], 10/04/2015 - 1mg-10 mcg / day [facility] 02/04/2019 10 mcg Tablets Kariva 1 po qd 84tabs N83.20 Al[facility], 08/23/2015 - 0.15-0.02/0.01 mg [facility] 10/04/2015 (21/5) Tablets Lo Loestrin Fe 1 by mouth every 28tabs N83.20 [facility], 06/03/2015 - 1mg-10 mcg / day no more [facility] 08/23/2015 10 mcg Tablets refills until after exam Nor-qd 1 by mouth every 3mo [facility], 03/24/2015 - 0.35mg Tablets day [facility] 06/03/2015 Metrogel-Vaginal 1 applicator 1TX 616.10 [facility], 06/25/2014 - 0.75% Gel every night at [facility] 06/30/2014 bedtime x 5 days Nor-qd take 1 by mouth 28tabs Vannessa 05/19/2014 - 0.35mg Tablets every day MD Darwin 06/25/2013 Macrobid 1 by mouth twice 14caps 788.1 [facility], 03/30/2014 - 100mg Capsules a day x7 [facility] 05/12/2014 Ibuprofen Take One Tablet 30tabs Angela Montez, 03/19/2014 - 600mg Tablets By Mouth Every 6 CNM 05/18/2014 Hours as Needed For Pain Labetalol HCL 1 PO bid Jannet Portillo, 03/16/2014 - 200mg Tablets [facility] 03/24/2015 Labetalol HCL 1 PO bid 60tabs Jannet Portillo, 03/03/2014 - 100mg Tablets [facility] 03/16/2014 Blood Pressure Monitor use as directed 1units Jannet Portillo, 03/03/2014 - Digital daily [facility] 05/18/2014 Misc Celexa Take 1 PO qd 30tabs Jairo, 02/16/2014 - 20mg Tablets MD Alba 03/16/2014 Klonopin take 1 by mouth 60tabs Jairo, 02/16/2014 - 1mg Tablets twice a day as MD Alba 05/18/2014 needed anxiety Zoloft take 1/2 tab for 30tabs Vannessa 02/11/2014 - 50mg Tablets 5 days then MD Darwin 03/03/2014 increase to 1 tab every day Labetalol HCL take 1 by mouth 60tabs Goodman 02/11/2014 - 200mg Tablets twice a day MD Darwin 03/03/2014 Labetalol HCL take one tablet 60tabs Goodman 02/04/2014 - 100mg Tablets by mouth twice a MD Darwin 02/11/2014 day Plus 1 by mouth every 30tabs Angela Montez, 01/29/2014 - 27-1mg day [facility] 06/25/2013 Tablets Plus Dha 1 daily by mouth 30tabs Angela Montez, 01/27/2014 - Rx given to pt in [facility] 01/29/2014 7-0.4-100mg Tablets hospital Ferrous Gluconate 1 by mouth every 30tabs Angela Montez, 01/27/2014 - 325(36Fe) day Rx given to [facility] 03/03/2014 mg Tablets pt in hospital Ibuprofen 1 by mouth q6 30tabs Angela Montez, 01/27/2014 - 600mg Tablets hours as needed [facility] 03/03/2014 rx given to pt in hospital Terconazole vaginal insertion 7days Marla Wade 08/07/2013 - 0.4% Cream MD Cash 08/10/2013 Zithromax Unknown - 06/03/2015 Vitamin C Unknown - 02/04/2019 Celexa Unknown - 02/04/2019 Ativan Unknown - Solution 06/25/2013 Losartan Potassium Unknown - Tablets 06/25/2013 Nor-qd Unknown - 05/19/2014 Iron Supplement Unknown - 05/18/2014 Celexa Unknown - 40mg Tablets 03/30/2014 Zithromax Unknown - 02/15/2014 Prednisone Unknown - 10/27/2012 Flvioleta Gummies Unknown - 01/27/2014 Azithromycin Unknown - 10/27/2012 Clonazepam Unknown - 08/10/2013 Prozac Unknown - 08/10/2013 Fluoxetine Unknown - 10/27/2012 Immunizations CPT Code Status Date Vaccine Reaction Lot # [id number] Given 11/25/2013 Tetnus, Diptheria Toxoids And Acellular Pt shahrzad well. [id number] Pertussis, PT > 7Yrs Old Vital Signs Date Vital Result Comment 02/04/2019 2:01pm Height 66 inches 5'6" Last Menstrual Period 6747467 6 Parity 1 10/04/2015 12:47pm BP Systolic 118 mmHg BP Diastolic 82 mmHg Height 66 inches 5'6" Weight 200.00 lb BMI (Body Mass Index) 32.3 kg/m2 Last Menstrual Period 9601354 6 Parity 1 06/03/2015 3:01pm BP Systolic 116 mmHg BP Diastolic 62 mmHg Height 66 inches 5'6" Weight 193.00 lb BMI (Body Mass Index) 31.1 kg/m2 Last Menstrual Period 7499130 6 Parity 1 03/30/2015 12:34pm BP Systolic 128 mmHg BP Diastolic 72 mmHg Height 66 inches 5'6" Weight 193.00 lb BMI (Body Mass Index) 31.1 kg/m2 Last Menstrual Period 4716075 6 Parity 1 03/24/2015 10:32am BP Systolic 122 mmHg BP Diastolic 84 mmHg Height 66 inches 5'6" Weight 194.00 lb BMI (Body Mass Index) 31.3 kg/m2 Last Menstrual Period 2915270 6 Parity 1 06/25/2014 1:40pm BP Systolic 124 mmHg BP Diastolic 76 mmHg Height 66 inches 5'6" Weight 178.00 lb BMI (Body Mass Index) 28.7 kg/m2 5 Parity 1 05/19/2014 1:50pm BP Systolic 124 mmHg BP Diastolic 82 mmHg Height 66 inches 5'6" Weight 180.00 lb BMI (Body Mass Index) 29.0 kg/m2 Last Menstrual Period 5065283 5 Parity 1 03/30/2014 2:21pm BP Systolic 110 mmHg BP Diastolic 72 mmHg Height 66 inches 5'6" Weight 188.00 lb BMI (Body Mass Index) 30.3 kg/m2 Last Menstrual Period 8569425 5 Parity 1 03/16/2014 12:48pm BP Systolic 134 mmHg BP Diastolic 76 mmHg Height 66 inches 5'6" Weight 190.00 lb BMI (Body Mass Index) 30.7 kg/m2 Last Menstrual Period 0502607 5 Parity 1 03/03/2014 12:49pm BP Systolic 124 mmHg BP Diastolic 78 mmHg Height 66 inches 5'6" Weight 198.00 lb BMI (Body Mass Index) 32.0 kg/m2 Last Menstrual Period 7554561 5 Parity 1 02/16/2014 1:18pm BP Systolic 146 mmHg BP Diastolic 80 mmHg Height 66 inches 5'6" Weight 191.00 lb BMI (Body Mass Index) 30.8 kg/m2 Last Menstrual Period 7629801 5 Parity 1 02/11/2014 11:17am BP Systolic 148 mmHg BP Diastolic 98 mmHg Height 66 inches 5'6" Weight 192.00 lb BMI (Body Mass Index) 31.0 kg/m2 Last Menstrual Period 3675205 [facility] 01/25/14 5 Parity 1 02/06/2014 9:15am BP Systolic 142 mmHg BP Diastolic 88 mmHg Height 66 inches 5'6" Weight 201.00 lb BMI (Body Mass Index) 32.4 kg/m2 Last Menstrual Period 2932142 5 Parity 1 02/04/2014 9:17am BP Systolic 164 mmHg BP Diastolic 96 mmHg Height 66 inches 5'6" Weight 201.00 lb BMI (Body Mass Index) 32.4 kg/m2 Last Menstrual Period 8723038 5 02/02/2014 1:08pm BP Systolic 136 mmHg BP Diastolic 88 mmHg Body Temperature 98.7 F Height 66 inches 5'6" Weight 207.00 lb BMI (Body Mass Index) 33.4 kg/m2 Last Menstrual Period 7587202 5 Parity 1 07/31/2013 2:24pm BP Systolic 118 mmHg BP Diastolic 70 mmHg Height 66 inches 5'6" Weight 171.00 lb BMI (Body Mass Index) 27.6 kg/m2 Last Menstrual Period 1589547 5 Parity 0 Results Test Date Facility Test Result H/L Range Note Laboratory test [facility] Culture Genital SEE RESULT 1 finding [address] [place] [address] & Sensitivity BELOW [phone] GC/Chlamydia Dna [facility] Chlamydia Negative N Negative Probe [address] [place] [address] trachomatis Rna [phone] Neisseria gonorrhoeae (GC) Rna Negative N Negative Laboratory test 03/16/2014 [facility] TSH (Thyroid 1.57 IU/mL N 0.34-5.60 [place] [address] Stimulating [phone] Horm) Free T4 1.00 ng/mL N 0.61-1.12 Induced 01/20/2014 [facility] Uric Acid 5.0 mg/dL 2.3-6.6 [place] [address] [phone] Liver Function 01/20/2014 [facility] Total 6.2 g/dL Low 6.4- 8.9 [place] [address] Protein [phone] Globulin 2.6 g/dL 2-4 Albumin/Globulin Ratio 1.4 1-3 Total Bilirubin 0.40 mg/dL 0.2-1.0 Direct Bilirubin 0.10 mg/dL 0.03-0.18 Indirect Bilirubin 0.3 mg/dL 0.3-1.0 Alkaline Phosphatase 237 U/L High 34-104 Alt 34 U/L 7-52 Ast 23 U/L 13-39 Renal Function Panel 01/20/2014 [facility] Sodium 134 mmol/L 133-145 [place] [address] [phone] Potassium 3.9 mmol/L 3.7-5.6 Chloride 102 mmol/L 101-111 Co2 Carbon Dioxide 24 mmol/L 22-32 Anion Gap 8 mmol/L 2-11 Glucose 87 mg/dL 70-100 Blood Urea Nitrogen 7 mg/dL 6-24 Creatinine 0.57 mg/dL 0.51-0.95 BUN/Creatinine Ratio 12.3 8-20 Calcium 8.9 mg/dL 8.6-10.3 Phosphorus 3.2 mg/dL 2.5-5.0 Albumin 3.6 g/dL 3.2-5.2 Egfr Non- 133.9 >60 Egfr 172.2 >60 2 Creatinine 01/20/2014 [facility] Urine Random 65.15 mg/[place] [address] Creatinine [phone] Creatinine 0.58 mg/dL 0.51-0.95 Creatinine Clearance 211 mL/min High 88-128 Urine Collection Time 24 Urine Total Volume 2700 mL Total Protein 24HR 01/20/2014 [facility] Urine Random Total 15 mg/[place] [address] Protein [phone] Urine Total Protein/24HR 405 mg/24Hr High 0-165 3 Urine Collection Time 24 Urine Total Volume 2700 mL CBC Auto 01/20/2014 [facility] White Blood 11.8 10^3/uL High 4.8-10.8 [place] [address] Count [phone] Red Blood Count 3.94 10^6/uL Low 4.0-5.4 Hemoglobin 12.1 g/dL 12.0-16.0 Hematocrit 37 % 35-47 Mean Corpuscular Volume 93 fL 80-97 Mean Corpuscular Hemoglobin 31 pg 27-31 Mean Corpuscular HGB Conc 33 g/dL 31-36 Red Cell Distribution Width 13 % 10.5-15 Platelet Count 269 10^3/uL 150-450 Mean Platelet Volume 8 um3 7.4-10.4 Abs Neutrophils 9.0 10^3/uL High 1.5-7.7 Abs Lymphocytes 1.8 10^3/uL 1.0-4.8 Abs Monocytes 0.9 10^3/uL High 0-0.8 Abs Eosinophils 0.1 10^3/uL 0-0.6 Abs Basophils 0 10^3/uL 0-0.2 Abs Nucleated RBC 0.01 10^3/uL Granulocyte % 76.2 % 38-83 Lymphocyte % 15.2 % Low 25-47 Monocyte % 7.6 % 1-9 Eosinophil % 0.7 % 0-6 Basophil % 0.3 % 0-2 Nucleated Red Blood Cells % 0.1 Laboratory test 01/15/2014 [facility] Group B Strep (SEE NOTE) 4 [place] [address] Culture Screen [phone] GBS Sensitivity (SEE NOTE) 5 Glucose Tolerance 12/11/2013 [facility] GTT 3HR (SEE NOTE) 6 3[place] [address] Gestational [phone] Laboratory test 11/25/2013 [facility] Glucose 1 HR 149 mg/dL 70-16 finding [place] [address] Post Prandial 0 [phone] CBC With No Diff 11/25/2013 [facility] White Blood 14.6 High 4.8-1 [place] [address] Count 10^3/uL 0.8 [phone] Red Blood Count 3.53 10^6/uL Low 4.0-5.4 Hemoglobin 11.1 g/dL Low 12.0-16.0 Hematocrit 34 % Low 35-47 Mean Corpuscular Volume 96 fL 80-97 Mean Corpuscular Hemoglobin 32 pg High 27-31 Mean Corpuscular HGB Conc 33 g/dL 31-36 Red Cell Distribution Width 13 % 10.5-15 Platelet Count 246 10^3/uL 150-450 Mean Platelet Volume 8 um3 7.4-10.4 Laboratory test 09/09/2013 [facility] Rubella Screen Equivocal Immune finding [place], [place] [address]33 [phone] Sequential 09/09/2013 [facility] Interpretation SEE BELOW 7 Integreated SCRN 2 MS Risk For Ontd <1:5000 Age Risk Down Syndrome 1:1100 [facility] Down Syndrome Risk 1:2000 <1:270 [facility] Trisomy 18 Risk <1:5000 <1:100 Calculated Gestational Age 17.3 8 Afp,Serum 26.7 NG/ML Afp Mom 0.65 9 HCG,Serum 12.8 IU/mL HCG Mom 0.66 Estriol,Free 0.59 NG/ML Estriol Mom 0.77 Inhibin A,Dimeric 222 pg/mL Inhibin A Mom 1.38 Lara-A 746 NG/ML Lara-A Mom 0.94 NT Mom 1.38 10 Referring Physician Name ALIYAH Referring Physician Phone [phone] Referring Physician Npi [id number] Specimen # From Part 1 [id number] Date Of 1990 Collection Date 09/09/2013 Maternal Weight 171 LBS Est'd Date Of Delivery 02/13/2014 Nuchal Translucency 2.00 MM [place] Rump Length 64.0 MM Ultrasound Date 08/07/2013 Nasal Bone NOT GIVEN Mother's Ethnic Origin WHITE Insulin Depend Diabetic NO Repeat Specimen NO Number Of Fetuses 1 HX Of Neural Tube Defects NO Twin B Nasal Bone NOT GIVEN Sequential Integrated SCRN 1 [place] 08/07/2013 [facility] Interpretation SEE BELOW 11 Age Risk Down Syndrome 1:830 ROLANDO Down Syndrome Risk IN PROCESS <1:50 ROLANDO Trisomy 18 Risk IN PROCESS <1:100 Calculated Gestational Age 12.6 12 Lara-A 746 NG/ML Lara-A Mom 0.94 HCG,Serum 37.2 IU/mL HCG Mom 0.74 NT Mom 1.38 13 Referring Physician Name ABEL BEACH Referring Physician Phone [phone] Referring Physician Npi [id number] Date Of 1990 Collection Date 08/07/2013 Maternal Weight 171 LBS Est'd Date Of Delivery 02/13/2014 CARMEN Determined By U/S Mother's Ethnic Origin [place] Number Of Fetuses 1 Insulin Depend Diabetic NO Repeat Specimen NO HX Of Neural Tube Defects NO Brief History (NTD) NOT GIVEN Prev Down Synd NO Donor Egg NOT GIVEN Donor Age:Egg Retrieval NOT GIVEN Ultrasound Date 08/07/2013 Ambulatory Care Nurse's Name MAYELA NTQR Ambulatory Care Nurse Id# [id number] NTQR Location Id# [id number] NTQR Reading Phys Id# [id number] [facility] Ambulatory Care Nurse Id# NOT GIVEN [place] Rump Length 64.0 MM Nuchal Translucency 2.00 MM Nasal Bone NOT GIVEN If Twins NOT GIVEN Twin B CRL NOT GIVEN MM Twin B NT NOT GIVEN MM Twin B Nasal Bone NOT GIVEN Toxoplasma AB(Igg,M),Eia 07/31/2013 [facility] Toxoplasma Igg AB <0.91 INDEX 14 Toxoplasma Igm AB NEGATIVE Cystic Fibrosis Carrier ([place]) 07/31/2013 [facility] Reported Ethnicity see note 15 CF Result see note 16 Interpretation see note 17 Mutations/Polymorphisms see note 18 Method see note 19 Reviewer see note 20 Laboratory test 07/31/2013 [facility] Cytology RUN DATE: neg [address] [place] [address] SEE [phone] NOTE> GC/Chlamydia Dna 07/31/2013 [facility] GC/Chlamydi (SEE NOTE) 22 [place] [address] a Rna [phone] Urine Culture 07/31/2013 [facility] Urine (SEE NOTE) 23 [place] [address] Culture Sensitivities [phone] HIV 1/2 AB 07/31/2013 [facility] HIV 1 2 Nonreactive Nonreactive [address] [place] [address] Antibody [phone] Type And Screen 07/31/2013 [facility] [place] [address] Blood Type [phone] Antibody Screen NEGATIVE CBC With No 07/31/2013 [facility] White Blood 8.2 10^3/uL 4.8 -10.8 [place] [address] Count [phone] Red Blood Count 3.72 10^6/uL Low 4.0-5.4 Hemoglobin 12.7 g/dL 12.0-16.0 Hematocrit 37 % 35-47 Mean Corpuscular Volume 99 fL High 80-97 Mean Corpuscular Hemoglobin 34 pg High 27-31 Mean Corpuscular HGB Conc 34 g/dL 31-36 Red Cell Distribution Width 13 % 10.5-15 Platelet Count 264 10^3/uL 150-450 Mean Platelet Volume 8 um3 7.4-10.4 RPR 07/31/2013 [facility] Syphilis [place] [address] [phone] RPR Nonreactive Nonreactive RPR Titer TNP Pediatric/Maternal YES PNL No 07/31/2013 [facility] Rubella Screen [place] [address] [phone] Hemoglobin A1c 5.0 % Less than 6.0 25 Hepatitis B Surface Antigen Nonreactive Nonreactive 26 1 SEE RESULT BELOW Name: JANET DILLARD : [address]: Alessandra Coffman CNP Acct: [id number] Unit: [id number] AGE: 25 Location: [facility] Re10/04/15 SEX: F Status: REG REF SPEC: [id number] LULY: 10/04/15-[address]: Alessandra Coffman CNP REQ: [id number] RECD: 10/05/15-1052 STATUS: COMP _ SOURCE: CERVIX SPDESC: ORDERED: Genital Culture Procedure Result Reported Site Genital Culture Final 10/07/15- 1226 ML Organism 1 NORMAL JOSE L Quantity 3+ * ML - MAIN LAB ([facility]) . END OF REPORT * ML=Testing performed at Main Lab DEPARTMENT OF PATHOLOGY, [address] [place] [address] Erlin Xiong M.D. Director [facility] # [id number] 2 Because ethnic data is not always readily [...] 15-29 5 Kidney failure <15 (or dialysis) 3 Verbal to answering service at 2012 on 01/20/14 by . Doctor to return call. 4 RUN DATE: 01/17/14 [facility] LAB LIVE PAGE 1 RUN TIME: [address] [place], [place] [address] Specimen Inquiry Name: JANET DILLARD : [address]: Kayce Salinas NP Acct: [id number] Unit: [id number] AGE: 23 Location: [facility] Re01/15/14 SEX: F Status: REG REF SPEC: [id number] LULY: 01/15/14-1515 [facility] DR: Kayce Salinas NP REQ: [id number] RECD: 01/16/14 STATUS: RES _ SOURCE: CER/VAG/RE SPDESC: ORDERED: Grp B Strp Scrn, GBS Sensi QUERIES: Is Patient Penicillin Allergic? Y Medent Number [id number] Procedure Result Verified Site Group B Strep Culture Screen Final 01/17/14- 1151 ML Group B Strep Screen Positive GBS Sensitivity PENDING END OF REPORT * ML=Testing performed at Main Lab DEPARTMENT OF PATHOLOGY, [address] [place] [address] Erlin Xiong M.D. Director [facility] Permit #[id number] RUN DATE: 01/19/14 [facility] LAB LIVE PAGE 1 RUN TIME: [address] [place] [address] Specimen Inquiry Name: JANET DILLARD : [address]: Kayce Salinas NP Acct: [id number] Unit: [id number] AGE: 23 Location: [facility] Re01/15/14 SEX: F Status: REG REF SPEC: [id number] LULY: 01/15/14-[address]: Kayce Salinas NP REQ: [id number] RECD: 01/16/14-1038 STATUS: COMP _ SOURCE: CER/VAG/RE SPDESC: ORDERED: Grp B Strp Scrn, GBS Sensi QUERIES: Is Patient Penicillin Allergic? Y Medent Number [id number] Procedure Result Verified Site Group B Strep Culture Screen Final 01/17/14- 1151 ML Group B Strep Screen Positive GBS Sensitivity Final 01/19/14- 0820 ML Organism 1 STREP AGALACTIAE - (GROUP B) 1. STREP AGALACTIAE - (GROUP B) M.I.C. RX --------- ------ Inducible Clindamycin - 1. STREP AGALACTIAE - (GROUP B) M.I.C. RX --------- ------ Ampicillin <=0.25 S Penicillin <=0.12 S Clindamycin 4 R Levofloxacin 1 S Linezolid 2 S * Quinupristin/Dalfopristin 0.5 S Tetracycline >=16 R Tigecycline <=0.12 S Vancomycin 1 S Imipenem-Deduced S * Ampicillin/Sulbactam-Deduced S Cefazolin-Deduced S CONTINUED ON NEXT PAGE * ML=Testing performed at Main Lab DEPARTMENT OF PATHOLOGY, [facility] [place] [address] Erlin Xiong M.D. Director [facility] Permit #[id number] RUN DATE: 01/19/14 [facility] LAB LIVE PAGE 2 RUN TIME: 08 [facility] [address] [place], [place] [address] Specimen Inquiry Patient: JANET DILLARD [id number] (Continued) Specimen: [id number] Collected: 01/15/14-1514 Received: 01/16/14-1038 (Continued) Procedure Result Verified Site GBS Sensitivity Final (continued) * These antibiotics are not available in the [facility] Formulary Contact the Microbiology Department for any additional antibiotic reporting. END OF REPORT * ML=Testing performed at Main Lab DEPARTMENT OF PATHOLOGY, [address] [place] [address] Erlin Xiong M.D. Director [facility] Permit #[id number] GLU Fast 87 Col: 12/11/13 0746 GLU 1HR 150 Col: 12/11/13 0846 GLU 2HR 114 Col: 12/11/13 0946 GLU 3HR 126 Col: 12/11/13 1046 GLU Interp Col: 12/11/13 0746 GTT normal ranges for obstetrics per the [employer] (ACOG).Based on 100 gm glucose load: Fasting <95 mg/dl 1hr <180 mg/dl 2hr <155 mg/dl 3hr <140 mg/dl 7 SCREEN NEGATIVE FOR OPEN NTD, DOWN SYNDROME AND TRISOMY 18. NT WAS USED IN THE RISK CALCULATIONS. 8 [place] rump length (CRL) was used to calculate gestational age. CARMEN, if provided, was not used for gestational age dating. 9 Reference Range: <2.50 IDD <1.90 TWINS <4.00 TWINS IDD <3.50 TRIPLETS <4.50 10 The Sequential Integrated Screen combines LARA-A and hCG with or without a nuchal translucency measurement in the first trimester with AFP, unconjugated estriol, intact hCG and Inhibin A in the second trimester. This provides a useful screening test for detection of open neural tube defects, Down syndrome and Trisomy 18. It should be noted that normal results can never guarantee the of a normal baby and that 2 to 3 percent of newborns have some type of physical or mental defect, many of which are undetectable through any known diagnostic technique. Interpretation reviewed by: Yoly Bueno, Ph.D., [facility]. This is a screening test, not a diagnostic test. This risk assessment is based on demographic data provided by the ordering physician. Please notify the laboratory promptly if any data are incorrect. If you have questions concerning this report: For clinical consultation, call ; For technical questions, call ext [phone]; For recalculations, fax to . This test was developed and its performance characteristics have been determined by [employer] [facility]. Performance characteristics refer to the analytical performance of the test. 11 This patient's risk does not exceed the first trimester cut-off for Down syndrome or trisomy 18. The integrated screen calculation is awaiting the second trimester sample. NT WAS USED IN THE RISK CALCULATIONS. Thank you for submitting this patient's Part 1 specimen. These first trimester values will be incorporated with the second trimester values as part of the integrated testing process. Please submit the Part 2 specimen between 08/24/2013-10/18/2013 (15.0 and 22.9 weeks gestation) with 08/24/2013-09/06/2013 (15.0 - 16.9 weeks gestation) being optimal. When submitting Part 2, please include the following Specimen # from Part 1: [id number] 12 [place] rump length (CRL) was used to calculate gestational age. CARMEN, if provided, was not used for gestational age dating. 13 Interpretation reviewed by: Sunny Valdez, Ph.D., [facility] This is a screening test, not a diagnostic test. This risk assessment is based on demographic data provided by the ordering physician. Please notify the laboratory promptly if any data are incorrect. If you have questions concerning this report: For clinical consultation, call ; For technical questions, call ext [phone]; For recalculations, fax to . This test was developed and its performance characteristics have been determined by [employer] [facility]. Performance characteristics refer to the analytical performance of the test. 14 INDEX VALUE RESULTS INTERPRETATION ------- < OR=0.90 NEGATIVE NO TOXOPLASMA IGG ANTIBODY DETECTED 0.91 - 1.09 EQUIVOCAL PRESENCE OR ABSENCE OF TOXOPLASMA IGG ANTIBODY CANNOT BE DISCERNED > OR=1.10 POSITIVE TOXOPLASMA IGG ANTIBODY DETECTED A POSITIVE RESULT INDICATES THAT THE PATIENT HAS ANTIBODY TO TOXOPLASMA IGG. IT DOES NOT DIFFERENTIATE BETWEEN AN ACTIVE OR PAST INFECTION. THE CLINICAL DIAGNOSIS MUST BE INTERPRETED IN CONJUNCTION WITH THE CLINICAL SIGNS AND SYMPTOMS OF THE PATIENT. 15 16 NEGATIVE; NONE OF THE MUTATIONS LISTED BELOW WERE DETECTED 17 This result does not rule out the presence of a mutation or a diagnosis of cystic fibrosis disease (CF).* The risk for mutations that cause CF other than the ones tested depends greatly on family history, clinical presentation, and ethnicity. Chance of Having a CF Mutation Ethnic Group Detection Before After Negative Rate Test Result Ashkenazi Pentecostal 94% 1 in 24 1 in 400 Non- 88% 1 in 25 1 in 208 -[place] 72% 1 in 46 1 in 164 -[place] 65% 1 in 65 1 in 186 -[place] 49% 1 in 94 1 in 184 Other insufficient data available For assistance with interpretation of these results, please contact your local [employer] [facility] genetic counselor or call [email or web address] ([phone]). 18 G85E (c.254 G>A) 3120+1 G>A(c.2988+1G>A) R334W (c.1000 C>T) 394delTT (c.262_263delTT) V520F (c.1558 G>T) 1717-1 G>A(c.1585-1 G>A) R553X (c.1657 C>T) 1898+1 G>A(c.1766+1 G>A) U2510H(c.3846 G>A) 3659delC (c.3437delC) R347H (c.1040 G>A) 621+1 G>T (c.489+1 G>T) R560T (c.1679 G>C) 3905insT (c.3773_3774insT) Q1613G(c.3484 C>T) 2183AA>G (c.2051_2052delAAinsG) G4731X(c.3909 C>G) 711+1 G>T (c.579+1 G>T) R117H (c.350 G>A) Y890mhp (c.1519_1521delATC) R347P (c.1040 G>T) 2184delA (c.2052delA) G542X (c.1624 G>T) 3876delA (c.3744delA) A455E (c.1364 C>A) 1078delT (c.948delT) S549N (c.1647 G>A) I877zzf (c.1521_1523delCTT) S549R (c.1646 A>C) 2789+5 G>A(c.2657+5 G>A) G551D (c.1652 G>A) 3849+10kb C>T (c.7156-6372 C>T) This assay detects thirty-two mutations, including the twenty-three core mutations recommended by the [place] [employer] (ACMG) and the [place] College [employer] Obstetric[employer] and Gynec[employer] (ACOG) for population-based CF carrier screening. Testing for the intron 8 5T polymorphism is performed only when the R117H mutation is detected. Testing for the I506V and I507V polymorphisms is performed only when a homozygous Delta F508 or Delta I507 mutation is detected. In addition to the ACMG/ACOG panel, this assay detects nine additional mutations. While these mutations are rare in the [place] population, the scientific and medical literature indicates that these mutations are not benign polymorphisms. 19 The mutations listed above are detected by an oligonucleotide ligation assay (THERESE) after multiplex- polymerase chain reaction (PCR) amplification of specific CF gene regions. Fluorescent allele-specific reaction products are detected by capillary electrophoresis. Since genetic variation and other factors can affect the accuracy of direct mutation testing, the results of this testing should always be interpreted in light of clinical and familial data. 20 Marty Farley, Ph.D.,[facility] Director, Molecular Genetics The performance characteristics of this assay have been determined by [employer]. Performance characteristics refer to the analytical performance of the test. For more information on this test, go to http://education.[employer] [place].Tripvi/faq/cfscreen 21 RUN DATE: 08/01/13 [facility] LAB LIVE PAGE 1 RUN TIME: [address] [place] [address] Specimen Inquiry Name: JANET DILLARD : [address]: Alessandra Coffman CNP Acct: [id number] Unit: [id number] AGE: 23 Location: [facility] Re07/31/13 SEX: F Status: REG REF SPEC: [id number] LUYL: 07/31/13-[address]: Alessandra Coffman [facility] REQ: [id number] RECD: 08/01/13 STATUS: SOUT _ ORDERED: IMAGE ANALYSIS FINAL DIAGNOSIS Negative for Intraepithelial lesion or Malignancy A. Ectocervical/Endocervical Specimen Adequacy: Satisfactory of evaluation Transformation zone component identified Patient Information: HPV: Thin Layer Pap Test w/reflex to high risk HPV DNA testing when ASCUS Actual Specimen Date: 07/31/13 Last Menstrual Date: 05/09/13 ?: Y Other Pertinent History: Prior Unknown Signed (signature on file) GAURAV Mercado (ASCP) 08/01/13 7760 This Pap test was evaluated with the assistance of the WaveseisPrep Test Imaging System. Due to cytologic findings at the broomcorn scraper microscope, comprehensive manual rescreening by a Instructor Psychiatric Aide may be required. The Pap Smear is a screening test designed to aid in the detection of premalignant and malignant conditions of the uterine cervix. It is not a diagnostic procedure and should not be used as the sole means of detecting cervical cancer. Both false- positive and false- negative reports do occur. Depending on your risk status, a Pap smear shoudl be obtained and evaluated every 1-3 years. END OF REPORT * ML=Testing performed at Main Lab DEPARTMENT OF PATHOLOGY, [address] [place] [address] Erlin Xiong M.D. Director [facility] Permit #[id number] RUN DATE: 08/05/13 [facility] LAB LIVE PAGE 1 RUN TIME: [address] [place] [address] Specimen Inquiry Name: JANET DILLARD : [address]: Alessandra Coffman DREDGE LEVER OPERATOR Acct: [id number] Unit: [id number] AGE: 23 Location: [facility] Re07/31/13 SEX: F Status: REG REF SPEC: [id number] LULY: 07/31/13-[address]: Alessandra Coffman DREDGE LEVER OPERATOR REQ: [id number] RECD: 08/01/13 STATUS: COMP _ SOURCE: VAN RICOESC: ORDERED: JEFERSON/Merary RNA QUERIES: Medent Number [id number] Procedure Result Verified Site Chlamydia Trachomatis RNA Final 08/05/13- 1501 ML NEGATIVE for Chlamydia trachomatis rRNA GC (N. gonorrhoeae) RNA Final 08/05/13- 1457 ML NEGATIVE for Neisseria gonorrhoeae rRNA A [...] result may have adverse psychosocial impact, the CDC recommends retesting by a method using an [...] performed at Main Lab DEPARTMENT OF PATHOLOGY, [facility] [place], [place] [address] Erlin Xiong M.D. Director [facility] Permit #[id number] RUN DATE: 08/05/13 [facility] LAB LIVE PAGE 2 RUN TIME: 630 [facility] [address] [place], [place] [address] Specimen Inquiry Patient: JANET DILLARD [id number] (Continued) Specimen: [id number] Collected: 07/31/13 Received: 08/01/13 (Continued) Procedure Result Verified Site GC (N. gonorrhoeae) RNA Final (continued) 08/05/13- 1378 Performance characteristics for detecting C. trachomatis and N. gonorrhoeae are derived from high prevalence populations. Positive results in low prevalence populations should be interpreted carefully with the understanding that the likelihood of a false positive may be higher than a true positive. END OF REPORT * ML=Testing performed at Main Lab DEPARTMENT OF PATHOLOGY, [facility] [place], [place] [address] Erlin Xiong M.D. Director [facility] Permit #[id number] RUN DATE: 08/02/13 [facility] LAB LIVE PAGE 1 RUN TIME: 1000 [facility] [address] [place], [place] [address] Specimen Inquiry Name: JANET DILLARD : [address]: Alessandra Coffman DREDGE LEVER OPERATOR Acct: [id number] Unit: [id number] AGE: 23 Location: [facility] Re07/31/13 SEX: F Status: REG REF SPEC: [id number] LULY: 07/31/13-143 [facility] DR: Alessandra Coffman DREDGE LEVER OPERATOR REQ: [id number] RECD: 07/31/13 STATUS: COMP _ SOURCE: URINE SPDESC: ORDERED: Urine Culture QUERIES: Medent Number [id number] Procedure Result Verified Site Urine Culture Final 08/02/13- 1000 ML Organism 1 NORMAL JOSE L Clio Count 1-10,000 (Few) CFU/ML END OF REPORT * ML=Testing performed at Main Lab DEPARTMENT OF PATHOLOGY, [address] [place] [address] Erlin Xiong M.D. Director [facility] Permit #[id number] It is recognized that currently available assays [...] in the low risk population was 99.90% (6026/6007) with a 95% confidence interval of 99.78 to 99.96%. 25 Therapeutic target for the treatment of diabetes Mellitus patients is <7% HBA1C, and in selective patients <6.0%.Please refer to [place] [employer] Association Diabetic care guidelines for further information. 26 YES Procedures Date Code Description Status 06/03/2015 19560 Echography Transvaginal Completed 01/25/2014 88085 Obstetric Care Routine Completed 01/20/2014 19406 Non-Stress Test Completed 08/07/2013 03287 Nuchal Translucency Ultrasound /First Gestation Completed Encounters Type Date Location Provider Dx Diagnosis Office Visit 10/04/2015 1:00p [facility] Alessandra Coffman ANP-C N76.0 Acute vaginitis R30.0 Dysuria Z30.49 Encounter for surveillance of other contraceptives Office Visit 06/03/2015 3:40p [facility] Alessandra Coffman, ANP-C 620.2 Ovarian Cyst Other & Unspec 788.1 Dysuria Office Visit 03/30/2015 1:00p [facility] Alessandra Coffman, 620.2 Ovarian Cyst Other ANP-C & Unspec Office Visit 03/24/2015 10:40a [facility] Alessandra Coffman, 789.9 Abdomen & Pelvis ANP-C Symptoms Other 620.2 Ovarian Cyst Other & Unspec Office Visit 06/25/2014 2:20p [facility] Alessandra Coffman, ANP-C 788.1 Dysuria 616.10 Vaginitis & Vulvovaginitis Unspec 789.9 Abdomen & Pelvis Symptoms Other Office Visit 05/19/2014 2:30p [facility] Kayce Salinas NP 789.9 Abdomen & Pelvis Symptoms Other Office Visit 03/30/2014 3:00p [facility] Alessandra Coffman, 788.1 Dysuria ANP-C 789.9 Abdomen & Pelvis Symptoms Other Office Visit 03/16/2014 1:00p [facility] Jannet Portilol CNM 300.00 Anxiety State Unspec 401.9 Hypertension Unspec Office Visit 02/16/2014 1:30p [facility] Kayce Salinas, 642.41 Pre- Eclampsia Mild Or ASSET PROTECTION LEAD Unspec Preg Deliv W/ Or W/O Antep Cond 300.00 Anxiety State Unspec Office Visit 02/11/2014 11:30a [facility] Kayce Salinas 642.41 Pre- Eclampsia Mild Or ASSET PROTECTION LEAD Unspec Preg Deliv W/ Or W/O Antep Cond Office Visit 02/06/2014 8:45a [facility] Alessandra Coffman, V24.0 Care & ANP-C Examination Immediately After Delivery Office Visit 02/02/2014 1:20p [facility] Alessandra Coffman, 784.0 Headache ANP-C 466.0 Bronchitis Acute Office Visit 01/21/2014 4:20p [facility] Office Abel Saldana 642.43 Pre-Eclampsia Cresencio Beach M.D. Or Unspec Preg Antepartum Cond Or Compl Plan of Treatment 10/04/2015 - Alessandra Coffman, DAR-CN76.0 Acute vaginitisNew Medication:Metrogel- Vaginal 0.75 % - 1 applicator every night at bedtime x 5 daysFollow up:Followup: . (Follow up)Follow up PRNR30.0 DysuriaFollow up:Z30.49 Encounter for surveillance of other contraceptives
[2019-02-06 17:19] LABS: Urine Appearance Cloudy; Urine Bilirubin Negative (Negative); Urine Blood Negative (Negative); Urine Color Yellow; Urine Glucose Negative (Negative); Urine Ketones Negative (Negative); Urine Nitrite Negative (Negative); Urine Protein Negative (Negative); Urine Urobilinogen Negative (Negative)
[2019-02-06 17:59] LABS: ABS Eosinophils 0.1 10^3/ul (0-0.6); ABS Lymphocytes 2.6 10^3/ul (1.0-4.8); ABS Monocytes 0.5 10^3/ul (0-0.8); ABS Neutrophils 4.4 10^3/ul (1.5-7.7); Eosinophil % 1.3 %; Hematocrit 40 % (35-47); Hemoglobin 13.5 g/dL (12.0-16.0); Lymphocyte % 34.1 %; Mean Corpuscular HGB Conc 34 g/dL (31-36); Mean Corpuscular Hemoglobin 32 pg (27-31); Mean Corpuscular Volume 95 fL (80-97); Mean Platelet Volume 7.6 fL (7.4-10.4); Platelet Count 250 10^3/uL (150-450); Red Blood Count 4.23 10^6 /uL (3.70-4.87); Red Cell Distribution Width 12 % (10.5-15); White Blood Count 7.7 10^3/uL (3.5-10.8)
[2019-02-06 18:21] LABS: ALT 8 U/L (7-52); AST 11 U/L (13-39); Albumin 4.6 g/dL (3.2-5.2); Albumin/Globulin Ratio 1.8 (1-3); Alkaline Phosphatase 62 U/L (34-104); Anion Gap 5 mmol/L (2-11); BUN/Creatinine Ratio 20.8 (8-20); Blood Urea Nitrogen 16 mg/dL (6-24); C Reactive Protein < 1.00 mg/L (<8.01); CO2 Carbon Dioxide 28 mmol/L (22-32); Calcium 9.6 mg/dL (8.6-10.3); Chloride 105 mmol/L (101-111); EGFR African American 109.6 (>60); EGFR Non-African American 90.6 (>60); Globulin 2.5 g/dL (2-4); Glucose 80 mg/dL (70-100); Potassium 3.7 mmol/L (3.5-5.0); Sodium 138 mmol/L (135-145); Total Protein 7.1 g/dL (6.4-8.9)
[2019-02-06 18:27] LABS: HCG Pregnancy < 0.60 mIU/mL
--- NOTE | 2019-02-06 20:38 | ED ---
GI/ HPI - HPI Summary HPI Summary: Patient complains of increased urinary frequency and urge 1 month. Denies abdominal pain but states she does feel a pelvic pressure that feels like she needs to urinate. Also states she started to have bilateral lower back pain starting last night. Denies fever, cough, sore throat, CP, SOB, N/V/D, abdominal pain, change in BM, vaginal symptoms. Patient was evaluated by OB/ METALLURGICAL ANALYST 2 days ago with a negative UA. Denies receiving pelvic exam or pelvic swabs at that time. Medical history is anxiety. Abdominal surgical history is right ovary removal for ovarian cysts. Denies IV drug use. - History of Current Complaint Chief Complaint: EDUrogenitalProblems Time Seen by Provider: 02/06/19 17:38 Stated Complaint: ABD PAIN, FREQUENT URINATION PER PT Hx Obtained From: Patient Hx Last Menstrual Period: 09/17/18 Onset/Duration: Started Weeks Ago Timing: Intermittent Severity: Severe Current Severity: Severe Pain Intensity: 8 Location of Pain: Other Pain Characteristics: Cramping, Aching - Allergy/Home Medications Allergies/Adverse Reactions: Allergies Allergy/AdvReac Type Severity Reaction Status Date / Time Penicillins Allergy Hives Verified 10/09/18 12:24 Sulfa (Sulfonamide Allergy Hives Verified 10/09/18 12:24 Antibiotics) PMH/Surg Hx/FS Hx/Imm Hx Endocrine/Hematology History: Denies: Hx Diabetes, Hx Thyroid Disease Cardiovascular History: Reports: Other Cardiovascular Problems/Disorders - pt developed HTN after giving 12 weeks Denies: Hx Congestive Heart Failure, Hx Hypertension Respiratory History: Denies: Hx Asthma, Hx Chronic Obstructive Pulmonary Disease (COPD) GI History: Reports: Other GI Disorders - pt states she has acid reflux after Denies: Hx Ulcer History: Reports: Hx Renal Disease - preeclampsia, Other Problems/ Disorders - pt had preclampsia with protein in urine Sensory History: Denies: Hx Eye Prosthesis Opthamlomology History: Denies: Hx Legally Blind EENT History: Denies: Hx Deafness Neurological History: Reports: Other Neuro Impairments/Disorders - pt c/o dizziness and feeling pressure in head Psychiatric History: Reports: Hx Anxiety, Hx Depression - Surgical History Surgery Procedure, Year, and Place: RIGHT OOPHERECTOMY 2018 - Immunization History Date of Tetanus Vaccine: Up to Date Date of Influenza Vaccine: None Infectious Disease History: No Infectious Disease History: Denies: Hx Clostridium Difficile, Hx Hepatitis, Hx Human Immunodeficiency Virus (HIV), Hx of Known/Suspected MRSA, Hx Shingles, Hx Tuberculosis, Hx Known/ Suspected VRE, Hx Known/Suspected VRSA, History Other Infectious Disease, Traveled Outside the [place] in Last 30 Days - Family History Known Family History: Positive: Cardiac Disease - Not immediate family, uncle, Hypertension Negative: Blood Disorder - blood clots - Social History Alcohol Use: None Alcohol Amount: quit 20 days ago Hx Substance Use: Yes Substance Use Type: Reports: None Substance Use Comment - Amount & Last Used: quit M 25 days ago Hx Tobacco Use: Yes Smoking Status (MU): Light Every Day Tobacco Smoker Type: Cigarettes Amount Used/How Often: 1/2 pp day Length of Time of Smoking/Using Tobacco: 9 years Have You Smoked in the Last Year: No Review of Systems Constitutional: Negative Eyes: Negative ENT: Negative Cardiovascular: Negative Respiratory: Negative Gastrointestinal: Negative Positive: frequency, urgency Musculoskeletal: Negative Skin: Negative Neurological: Negative Psychological: Normal All Other Systems Reviewed And Are Negative: Yes Physical Exam - Summary Physical Exam Summary: Abdomen soft nontender. Lung sounds clear to auscultation bilaterally. RRR. No CVA tenderness bilaterally. No tenderness to palpation of lower back. Triage Information Reviewed: Yes Vital Signs On Initial Exam: Initial Vitals Temp Pulse Resp BP Pulse Ox 98.1 F 75 16 139/84 100 02/06/19 16:05 02/06/19 16:05 02/06/19 16:05 02/06/19 16:05 02/06/19 16:05 Vital Signs Reviewed: Yes Appearance: Positive: Well-Appearing Skin: Positive: Warm Head/Face: Positive: Normal Head/Face Inspection Eyes: Positive: Normal Neck: Positive: Supple Respiratory/Lung Sounds: Positive: Clear to Auscultation Cardiovascular: Positive: Normal Abdomen Description: Positive: Nontender Pelvic Exam: Positive: External Exam Normal, Bimanual Exam Normal, No Cerv. Motion Tender, No Masses, Discharge - White clumpy discharge.. Negative: Active Bleeding, Blood, Lesions, Mass, Tender w/ Cervical Motion, Tender Adnexa , Tender Uterus, Ulcers Musculoskeletal: Positive: Normal Neurological: Positive: Normal Psychiatric: Positive: Normal AVPU Assessment: Alert - [place] Coma Scale Best Eye Response: 4 - Spontaneous Best Motor Response: 6 - Obeys Commands Best Verbal Response: 5 - Oriented Coma Scale Total: 15 Diagnostics - Vital Signs Vital Signs Temp Pulse Resp BP Pulse Ox 02/06/19 16:05 98.1 F 75 16 139/84 100 - Laboratory Lab Results: Lab Results 02/06/19 02/06/19 02/06/19 Range/Units 16:34 17:51 17:51 WBC 7.7 (3.5-10.8) 10^3/uL RBC 4.23 (3.70-4.87) 10^6 /uL Hgb 13.5 (12.0-16.0) g/dL Hct 40 (35-47) % MCV 95 (80-97) fL MCH 32 H (27-31) pg MCHC 34 (31-36) g/dL RDW 12 (10.5-15) % Plt Count 250 (150-450) 10^3/uL MPV 7.6 (7.4-10.4) fL Neut % (Auto) 56.9 % Lymph % (Auto) 34.1 % Dunn % (Auto) 7.2 % Eos % (Auto) 1.3 % Baso % (Auto) 0.5 % Absolute Neuts (auto) 4.4 (1.5-7.7) 10^3/ul Absolute Lymphs (auto) 2.6 (1.0-4.8) 10^3/ul Absolute Monos (auto) 0.5 (0-0.8) 10^3/ul Absolute Eos (auto) 0.1 (0-0.6) 10^3/ul Absolute Basos (auto) 0.0 (0-0.2) 10^3/ul Absolute Nucleated RBC 0.0 10^3/ul Nucleated RBC % 0.0 Sodium 138 (135-145) mmol/L Potassium 3.7 (3.5-5.0) mmol/L Chloride 105 (101-111) mmol/L Carbon Dioxide 28 (22-32) mmol/L Anion Gap 5 (2-11) mmol/L BUN 16 (6-24) mg/dL Creatinine 0.77 (0.51-0.95) mg/dL Est GFR ( Amer) 109.6 (>60) Est GFR (Non-Af Amer) 90.6 (>60) BUN/Creatinine Ratio 20.8 H (8-20) Glucose 80 (70-100) mg/dL Lactic Acid (0.5-2.0) mmol/L Calcium 9.6 (8.6-10.3) mg/dL Total Bilirubin 0.20 (0.2-1.0) mg/dL AST 11 L (13-39) U/L ALT 8 (7-52) U/L Alkaline Phosphatase 62 (34-104) U/L C-Reactive Protein < 1.00 (<8.01) mg/L Total Protein 7.1 (6.4-8.9) g/dL Albumin 4.6 (3.2-5.2) g/dL Globulin 2.5 (2-4) g/dL Albumin/Globulin Ratio 1.8 (1-3) Lipase 15 (11.0-82.0) U/L Beta HCG, Quant < 0.60 mIU/mL Urine Color Yellow Urine Appearance Cloudy Urine pH 6.0 (5-9) Ur Specific [place] 1.020 (1.010-1.030) Urine Protein Negative (Negative) Urine Ketones Negative (Negative) Urine Blood Negative (Negative) Urine Nitrate Negative (Negative) Urine Bilirubin Negative (Negative) Urine Urobilinogen Negative (Negative) Ur Leukocyte Esterase Negative (Negative) Urine Glucose Negative (Negative) Urine Ascorbic Acid * A (Negative) 02/06/19 Range/Units 17:51 WBC (3.5-10.8) 10^3/uL RBC (3.70-4.87) 10^6 /uL Hgb (12.0-16.0) g/dL Hct (35-47) % MCV (80-97) fL MCH (27-31) pg MCHC (31-36) g/dL RDW (10.5-15) % Plt Count (150-450) 10^3/uL MPV (7.4-10.4) fL Neut % (Auto) % Lymph % (Auto) % Dunn % (Auto) % Eos % (Auto) % Baso % (Auto) % Absolute Neuts (auto) (1.5-7.7) 10^3/ul Absolute Lymphs (auto) (1.0-4.8) 10^3/ul Absolute Monos (auto) (0-0.8) 10^3/ul Absolute Eos (auto) (0-0.6) 10^3/ul Absolute Basos (auto) (0-0.2) 10^3/ul Absolute Nucleated RBC 10^3/ul Nucleated RBC % Sodium (135-145) mmol/L Potassium (3.5-5.0) mmol/L Chloride (101-111) mmol/L Carbon Dioxide (22-32) mmol/L Anion Gap (2-11) mmol/L BUN (6-24) mg/dL Creatinine (0.51-0.95) mg/dL Est GFR ( Amer) (>60) Est GFR (Non-Af Amer) (>60) BUN/Creatinine Ratio (8-20) Glucose (70-100) mg/dL Lactic Acid 1.3 (0.5-2.0) mmol/L Calcium (8.6-10.3) mg/dL Total Bilirubin (0.2-1.0) mg/dL AST (13-39) U/L ALT (7-52) U/L Alkaline Phosphatase (34-104) U/L C-Reactive Protein (<8.01) mg/L Total Protein (6.4-8.9) g/dL Albumin (3.2-5.2) g/dL Globulin (2-4) g/dL Albumin/Globulin Ratio (1-3) Lipase (11.0-82.0) U/L Beta HCG, Quant mIU/mL Urine Color Urine Appearance Urine pH (5-9) Ur Specific [place] (1.010-1.030) Urine Protein (Negative) Urine Ketones (Negative) Urine Blood (Negative) Urine Nitrate (Negative) Urine Bilirubin (Negative) Urine Urobilinogen (Negative) Ur Leukocyte Esterase (Negative) Urine Glucose (Negative) Urine Ascorbic Acid (Negative) Result Diagrams: 02/06/19 17:51 02/06/19 17:51 Lab Statement: Any lab studies that have been ordered have been reviewed, and results considered in the medical decision making process. GIGU Course/Dx - Course Course Of Treatment: Patient complains of increased urinary frequency and urge 1 month. Denies abdominal pain but states she does feel a pelvic pressure that feels like she needs to urinate. Also states she started to have bilateral lower back pain starting last night. Denies fever, cough, sore throat, CP, SOB , N/V/D, abdominal pain, change in BM, vaginal symptoms. Patient was evaluated by TELEVISION PRESENTER 2 days ago with a negative UA. Denies receiving pelvic exam or pelvic swabs at that time. Medical history is anxiety. Abdominal surgical history is right ovary removal for ovarian cysts. Denies IV drug use. Physical exam:Abdomen soft nontender. Lung sounds clear to auscultation bilaterally. RRR. No CVA tenderness bilaterally. No tenderness to palpation of lower back. Vital signs within normal limits. Labs unremarkable. Pelvic ultrasound negative. White clumpy discharge noted on pelvic exam. Cultures pending. Patient started on Diflucan 150 mg by mouth here in the ED. - Diagnoses Provider Diagnoses: Vaginal yeast infection Discharge - Sign-Out/Discharge Documenting (check all that apply): Patient Departure Patient Received Moderate/Deep Sedation with Procedure: No - Discharge Plan Condition: Stable Disposition: HOME Patient Education Materials: Yeast Infection (ED) Referrals: Ina Bowers MD [Primary Care Provider] - Elvin Engle MD [Medical Doctor] - Additional Instructions: You'll be called if any of the pending pelvic swabs are positive for an infection. Follow-up with primary care. If symptoms persist even after treatment follow-up with urology Dr Engle for further evaluation. Return to the ED for any new or worsening symptoms. - Billing Disposition and Condition Condition: STABLE Disposition: Home
[2019-02-06 20:51] VITALS: BP 121/78
[2019-02-07 12:55] LABS: Trichomonas vaginalis Result Negative (Negative)
[2019-02-07 13:00] LABS: Neisseria gonorrhoeae (GC) RNA Negative (Negative)
== END | disposition home or self-care (01) ==
LOC: ED 16:01
DX: B37.3 Candidiasis of vulva and vagina (principal); Z90.721 Acquired absence of ovaries, unilateral; I10 Essential (primary) hypertension; K21.9 Gastro-esophageal reflux disease without esophagitis; F41.9 Anxiety disorder, unspecified; F32.9 Major depressive disorder, single episode, unspecified; F17.210 Nicotine dependence, cigarettes, uncomplicated; Z88.0 Allergy status to penicillin; Z88.2 Allergy status to sulfonamides
CPT/HCPCS: 36415; 76856; 80053; 81003; 83605; 83690; 84702; 85025; 86140; 87480; 87491; 87510; 87591; 87661; 99282; A9270-GY

== ENCOUNTER 2019-03-03 13:53 | Emergency (ER) | payer OTHER ==
[2019-03-03 14:20] VITALS: BP 118/72
--- NOTE | 2019-03-03 14:57 | UC ---
Respiratory Complaint HPI - HPI Summary HPI Summary: Patient is a 28 year old female, who presents today to the urgent care with sore throat for past 3 days. There is increased difficulty to swallow and she noticed some white patches on the right tonsil which she was able to scrape off. Denies any sick contact. Denies any cough. Noticed some fevers at home(did not measure) Denies any chest pain or shortness of breath . Denies any abdominal pain , nausea or vomiting , diarrhea or constipation. - History of Current Complaint Chief Complaint: UCRespiratory Stated Complaint: SORE THROAT Time Seen by Provider: 03/03/19 14:48 Hx Obtained From: Patient Hx Last Menstrual Period: december 2018 Pain Intensity: 7 - Allergies/Home Medications Allergies/Adverse Reactions: Allergies Allergy/AdvReac Type Severity Reaction Status Date / Time Penicillins Allergy Hives Verified 03/03/19 14:20 Sulfa (Sulfonamide Allergy Hives Verified 03/03/19 14:20 Antibiotics) PMH/Surg Hx/FS Hx/Imm Hx - Additional Past Medical History Additional PMH: Past Medical History : Anxiety Past Surgical History: Right oophorectomy Family History : Noncontributory , Hypertension Social History : No alcohol, former smoker, no drug use. 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 Previously Healthy: Yes - Surgical History Surgical History: Yes Surgery Procedure, Year, and Place: RIGHT OOPHERECTOMY 2017 - Family History Known Family History: Positive: Cardiac Disease - Not immediate family, uncle, Hypertension Negative: Blood Disorder - blood clots - Social History Alcohol Use: None Alcohol Amount: quit 20 days ago Substance Use Type: None Substance Use Comment - Amount & Last Used: quit M 25 days ago Smoking Status (MU): Former Smoker Type: Cigarettes Amount Used/How Often: 1/2 pp day Length of Time of Smoking/Using Tobacco: 9 years Have You Smoked in the Last Year: No When Did the Patient Quit Smoking/Using Tobacco: 06/2013 Household Exposure Type: Cigarettes - Immunization History Most Recent Influenza Vaccination: about 2 months ago Most Recent Tetanus Shot: 11/25/13 Most Recent Pneumonia Vaccination: never Review of Systems All Other Systems Reviewed And Are Negative: Yes Constitutional: Positive: Negative Skin: Positive: Negative Eyes: Positive: Negative ENT: Positive: Sore Throat Respiratory: Positive: Negative. Negative: Shortness Of Breath, Cough Cardiovascular: Positive: Negative Gastrointestinal: Positive: Negative Genitourinary: Positive: Negative Motor: Positive: Negative Neurovascular: Positive: Negative Musculoskeletal: Positive: Negative Neurological: Positive: Negative Psychological: Positive: Negative Is Patient Immunocompromised?: No Physical Exam - Summary Physical Exam Summary: Physical Exam: Const: Appears well. No signs of apparent distress present. Alert and oriented x 3. Musculo: Walks with a normal gait. Head/Face: Atraumatic, normocephalic on inspection. Eyes: EOMI and PERRLA in both eyes. Conjunctivae clear. No discharge noted ENT: Hearing normal, TM normal appearing bilaterally, non bulging , non erythematous . No tenderness on palpation / manipulation of Tragus. No mastoid tenderness. No tenderness to palpation on maxillary and frontal sinus. There is pharyngeal erythema and slightly enlarged tonsils bilaterally but no exudates identified on the tonsils. Uvula is midline. Mild tender anterior cervical lymphadenopathy noted. Respiratory: Respirations are unlabored. Lungs clear to auscultation bilaterally, no wheezing , rhonchi or rales noted . CVS: Regular rate and Rhythm, S1S2 normal , no murmurs identified. Extremities: Peripheral circulation is grossly normal. Pulses 2+ Abdomen : Soft non tender , nondistended , Bowel sounds present . No guarding , rebound tenderness or rigidity noted. Skin: No lesions or rash located on the upper extremities or on the lower extremities. Neuro: Cranial nerves II to XII intact, motor and sensory intact. DTR Intact bilaterally. Mood is normal. Affect is normal. Triage Information Reviewed: Yes Vital Signs: Initial Vital Signs Temp 98.9 F 03/03/19 14:14 Pulse 106 03/03/19 14:14 Resp 18 03/03/19 14:14 BP 118/72 03/03/19 14:14 Pulse Ox 98 03/03/19 14:14 Vital Signs Reviewed: Yes Respiratory Course/Dx - Course Course Of Treatment: During the visit today, strep test was negative . She had requested urine test which was negative as well. Urinalysis was negative. We discussed that her symptoms are likely viral or could be from mononucleosis. Labs drawn for mononucleosis. I'll send a prescription for azithromycin that can be filled if her Monospot test is negative. We discussed that given her other meds and interaction with azithromycin which causes prolongation of QT and increases her risk of arrhythmia, she does not want to try any other antibiotic and reports that she has had azithromycin several times in the past without any difficulty. I will prescribe the medication to the pharmacy . Patient expressed understanding . - Differential Dx/Diagnosis Provider Diagnosis: Viral upper respiratory illness Discharge - Sign-Out/Discharge Documenting (check all that apply): Patient Departure All imaging exams completed and their final reports reviewed: No Studies - Discharge Plan Condition: Stable Disposition: HOME Prescriptions: Azithromyxin PAGE (NF) [Z-Page (Zithromax) 250 mg tabs #6] 2 tab PO .TODAY, THEN 1 DAILY #6 tab predniSONE [Prednisone 20 MG TAB] 40 mg PO DAILY 3 Days #6 tablet Patient Education Materials: Upper Respiratory Infection (ED) Referrals: Ina Bowers MD [Primary Care Provider] - 1 Week Additional Instructions: Please start taking the medication as prescribed to the pharmacy . Lab test for infectious mononucleosis done today. Results will be available tomorrow and somebody will inform you of the results. Please start taking the azithromycin if the testing is negative. Do not take azithromycin if you test positive for infectious mononucleosis. Throat lozenges will be helpful Salt water gargles will be helpful Ibuprofen as needed for fever. Follow up with your primary care doctor in 1 week Return to Urgent care / ER if symptoms get worse. - Billing Disposition and Condition Condition: STABLE Disposition: Home
[2019-03-05 15:11] LABS: EBV Capsid Ag IgG Ab Positive (Negative); EBV Capsid Ag IgM Ab Negative (Negative); Epstein-Barr Nuclear Antigen Positive (Negative)
--- NOTE | 2019-03-06 08:14 | UC ---
- Progress Note Progress Note: Laboratory results come back from March 03, 2019. Monospot is negative EBV IgM is negative. EBV IgG is positive. This indicates a past infection not acute. Even with a negative Monospot and a negative IgM does not mean the patient does not have mononucleosis at this time therefore the patient continues to have symptoms she needs to get reevaluated. Nursing to call patient and let them know of the results. Course/Dx - Diagnoses Provider Diagnoses: Viral upper respiratory illness Discharge - Sign-Out/Discharge Documenting (check all that apply): Patient Departure All imaging exams completed and their final reports reviewed: No Studies - Discharge Plan Condition: Stable Disposition: HOME Prescriptions: Azithromyxin PAGE (NF) [Z-Page (Zithromax) 250 mg tabs #6] 2 tab PO .TODAY, THEN 1 DAILY #6 tab predniSONE [Prednisone 20 MG TAB] 40 mg PO DAILY 3 Days #6 tablet Patient Education Materials: Upper Respiratory Infection (ED) Referrals: Ina Bowers MD [Primary Care Provider] - 1 Week Additional Instructions: Please start taking the medication as prescribed to the pharmacy . Lab test for infectious mononucleosis done today. Results will be available tomorrow and somebody will inform you of the results. Please start taking the azithromycin if the testing is negative. Do not take azithromycin if you test positive for infectious mononucleosis. Throat lozenges will be helpful Salt water gargles will be helpful Ibuprofen as needed for fever. Follow up with your primary care doctor in 1 week Return to Urgent care / ER if symptoms get worse. - Billing Disposition and Condition Condition: STABLE Disposition: Home
== END 2019-03-03 15:30 | disposition home or self-care (01) ==
LOC: UCEAST 13:53
DX: J06.9 Acute upper respiratory infection, unspecified (principal); F41.9 Anxiety disorder, unspecified; Z87.891 Personal history of nicotine dependence; Z88.0 Allergy status to penicillin; Z88.2 Allergy status to sulfonamides
CPT/HCPCS: 36415; 81003; 84702; 86308; 86664; 86665; 87651; 99212; G0463

== ENCOUNTER 2019-03-22 14:00 | Emergency (ER) | payer OTHER ==
[2019-03-22 14:12] VITALS: BP 119/69
--- NOTE | 2019-03-22 14:41 | UC ---
UC General HPI - HPI Summary HPI Summary: Pleasant 28 yo female c/o progressively worse sore throat, fever, difficulty swallowing. Sx started end of February (over 2 weeks) but became much worse over the last 4 days. Has had difficulty swallowing fluids. No rash. No sob perse. No cough other than post nasal. Ears painful. Pain is much worse R side than L side. No abd pain. - History of Current Complaint Chief Complaint: UCRespiratory Stated Complaint: SORETHROAT/EARPAIN Time Seen by Provider: 03/22/19 14:12 Hx Obtained From: Patient Hx Last Menstrual Period: 2 months ago Pain Intensity: 7 - Allergy/Home Medications Allergies/Adverse Reactions: Allergies Allergy/AdvReac Type Severity Reaction Status Date / Time Penicillins Allergy Hives Verified 03/22/19 14:12 Sulfa (Sulfonamide Allergy Hives Verified 03/22/19 14:12 Antibiotics) Home Medications: Home Medications Ibuprofen TAB* [Motrin TAB* 800 MG] 800 mg PO Q6H PRN 03/22/19 [History Confirmed 03/22/19] PMH/Surg Hx/FS Hx/Imm Hx Previously Healthy: Yes - Surgical History Surgical History: Yes Surgery Procedure, Year, and Place: RIGHT OOPHERECTOMY 2018 - Family History Known Family History: Positive: Cardiac Disease - Not immediate family, uncle, Hypertension Negative: Blood Disorder - blood clots - Social History Alcohol Use: Rare Alcohol Amount: quit 20 days ago Substance Use Type: None Substance Use Comment - Amount & Last Used: quit M 25 days ago Smoking Status (MU): Former Smoker Type: Cigarettes Amount Used/How Often: 1/2 pp day Length of Time of Smoking/Using Tobacco: 9 years Have You Smoked in the Last Year: No When Did the Patient Quit Smoking/Using Tobacco: 2 months Household Exposure Type: Cigarettes - Immunization History Most Recent Influenza Vaccination: about 2 months ago Most Recent Tetanus Shot: 11/25/13 Most Recent Pneumonia Vaccination: never Review of Systems All Other Systems Reviewed And Are Negative: Yes Constitutional: Positive: Fever, Fatigue Skin: Positive: Negative Eyes: Positive: Negative ENT: Positive: Other - see hpi Respiratory: Positive: Other - see hpi Cardiovascular: Positive: Other - see hpi Gastrointestinal: Positive: Other - see hpi Genitourinary: Positive: Other - see hpi Motor: Positive: Weakness Neurovascular: Positive: Negative Musculoskeletal: Positive: Negative Neurological: Positive: Negative Psychological: Positive: Negative Is Patient Immunocompromised?: No Physical Exam Triage Information Reviewed: Yes Appearance: Well-Nourished, Other: - looks very tired, pale. Nondiaphoretic. Sitting up. Vital Signs: Initial Vital Signs Temp 98.8 F 03/22/19 14:07 Pulse 98 03/22/19 14:07 Resp 16 03/22/19 14:07 BP 119/69 03/22/19 14:07 Pulse Ox 100 03/22/19 14:07 Vital Signs Reviewed: Yes Eye Exam: Normal ENT: Positive: Pharyngeal erythema, Nasal congestion, TM dull - TM dull rtx'd bilat, Tonsillar swelling, Tonsillar exudate, Other - R lateral ant neck tender to pressure. No stridor. Uvula midline. Both tonsils are swollen, R slightly more than left, but uvula midline. Mild trismus. Neck: Positive: Supple - no meningeal signs perse but ant neck tender as above Respiratory Exam: Normal Respiratory: Positive: Chest non-tender, Lungs clear, Normal breath sounds, No respiratory distress Cardiovascular Exam: Other - HR 100's (98) at triage. Correlates with radial pulse. Cardiovascular: Positive: No Murmur, Pulses Normal, Brisk Capillary Refill Abdominal Exam: Normal Abdomen Description: Positive: Nontender Musculoskeletal Exam: Normal - moves x 4 ext's. gait steady. Neurological Exam: Normal - conversing easily and appropriately, but softly. Hurts to talk. Psychological Exam: Normal - conversing easily and appropriately Skin Exam: Normal - nondiaphoretic no visible or reported rash Course/Dx - Course Course Of Treatment: REviewed blood tests from 03/03/19 (+IgG EBV, not M). RST negative PT looks sick, tired. Difficultly swallowing. R ant throat pain, in the setting of persistent tonsillitis. Completed full course of azithromycin early March (strep neg at the at time). Also short course prednisone at that time. Diff dx includes tonsillitis, also consider abscess. D/w pt. She agrees to further eval / tx in ED. Does not have a way to get there. Agrees with EMS. - Diagnoses Provider Diagnosis: Tonsillitis, Acute neck pain Discharge - Sign-Out/Discharge Documenting (check all that apply): Patient Departure All imaging exams completed and their final reports reviewed: No Studies - Discharge Plan Condition: Guarded Disposition: ADMITTED TO [facility] Patient Education Materials: Acute Neck Pain (ED), Tonsillitis (ED) Referrals: Ina Bowers MD [Primary Care Provider] - - Billing Disposition and Condition Condition: GUARDED Disposition: Admitted to [facility]
== END 2019-03-22 14:55 | disposition short-term general hospital (02) ==
LOC: UCEAST 14:00
DX: J03.90 Acute tonsillitis, unspecified (principal); M54.2 Cervicalgia; Z88.0 Allergy status to penicillin; Z88.2 Allergy status to sulfonamides; Z87.891 Personal history of nicotine dependence
CPT/HCPCS: 87070; 87651; 99213; G0463

== ENCOUNTER 2019-03-22 15:12 | Emergency (ER) | payer OTHER ==
[2019-03-22] MEDS ORDERED: Clindamycin 600 MG IVPREMIX(* 600 MG in PREMIX* 0 ML IV ONE (16:26)
[2019-03-22] MEDS ORDERED: methylPREDNISolone 125 MG* 2 ML VIAL IV ONE (16:26)
[2019-03-22] MEDS ORDERED: NS 0.9% 1000 ML** 1,000 ML IV ONE (16:26)
[2019-03-22] MEDS ORDERED: Ketorolac INJ* 30 MG/ML 1 ML VIAL IV PUSH ONE (16:29)
--- NOTE | 2019-03-22 16:35 | ED ---
Throat Pain/Nasal Congestion - HPI Summary HPI Summary: Pt reports Rt sided throat pain x 2+ weeks. (-) Rapid strep and (-) acute mono however has h/o mono. Was given zpack w/ steroids at onset - sx improved but returned 5 days ago completing this tx regimen. She has had return of sx for 4 days now. Was seen at prior to arrival today and advised to be seen in ED to r/o abscess. Has had dysphagia but still drinking liquids (ie. tea). Also reports sinus pain/pressure and pain/congestion in ears - Rt > Lt. Denies sneezing, coughing, neck pain/stiffness, chest pain, SOB, ab pain, N/V/D, rash. Here as she cannot get her sx under control w/ OTC meds. - History of Current Complaint Chief Complaint: EDThroatPain Time Seen by Provider: 03/22/19 16:26 Hx Obtained From: Patient - Allergies/Home Medications Allergies/Adverse Reactions: Allergies Allergy/AdvReac Type Severity Reaction Status Date / Time Penicillins Allergy Hives Verified 03/22/19 15:18 Sulfa (Sulfonamide Allergy Hives Verified 03/22/19 15:18 Antibiotics) PMH/Surg Hx/FS Hx/Imm Hx Previously Healthy: No - ongoing ST Endocrine/Hematology History: Denies: Hx Diabetes, Hx Thyroid Disease Cardiovascular History: Reports: Other Cardiovascular Problems/Disorders - pt developed HTN after giving 12 weeks Denies: Hx Congestive Heart Failure, Hx Hypertension Respiratory History: Denies: Hx Asthma, Hx Chronic Obstructive Pulmonary Disease (COPD) GI History: Reports: Other GI Disorders - pt states she has acid reflux after Denies: Hx Ulcer History: Reports: Hx Renal Disease - preeclampsia, Other Problems/ Disorders - pt had preclampsia with protein in urine Sensory History: Denies: Hx Eye Prosthesis, Hx Legally Blind, Hx Deafness Opthamlomology History: Denies: Hx Eye Prosthesis, Hx Legally Blind Neurological History: Reports: Other Neuro Impairments/Disorders - pt c/o dizziness and feeling pressure in head Psychiatric History: Reports: Hx Anxiety, Hx Depression - Surgical History Surgery Procedure, Year, and Place: RIGHT OOPHERECTOMY 2017 - Immunization History Date of Tetanus Vaccine: Up to Date Date of Influenza Vaccine: None Infectious Disease History: Yes - h/o mono Infectious Disease History: Denies: Hx Clostridium Difficile, Hx Hepatitis, Hx Human Immunodeficiency Virus (HIV), Hx of Known/Suspected MRSA, Hx Shingles, Hx Tuberculosis, Hx Known/ Suspected VRE, Hx Known/Suspected VRSA, History Other Infectious Disease, Traveled Outside the [place] in Last 30 Days - Family History Known Family History: Positive: Cardiac Disease - Not immediate family, uncle, Hypertension Negative: Blood Disorder - blood clots - Social History Alcohol Use: Rare Alcohol Amount: quit 20 days ago Hx Substance Use: Yes Substance Use Type: Reports: None Substance Use Comment - Amount & Last Used: quit M 25 days ago Hx Tobacco Use: Yes Smoking Status (MU): Former Smoker Type: Cigarettes Amount Used/How Often: 1/2 pp day Length of Time of Smoking/Using Tobacco: 9 years Have You Smoked in the Last Year: No Review of Systems Constitutional: Negative Negative: Fever, Chills, Fatigue Eyes: Negative Positive: Sore Throat, Ear Ache. Negative: Dental Pain, Nasal Discharge Cardiovascular: Negative Respiratory: Negative Gastrointestinal: Negative Positive: no symptoms reported Musculoskeletal: Negative Skin: Negative Neurological: Negative Psychological: Normal All Other Systems Reviewed And Are Negative: Yes Physical Exam Triage Information Reviewed: Yes Vital Signs On Initial Exam: Initial Vitals Temp Pulse Resp BP Pulse Ox 98.7 F 88 16 115/70 98 03/22/19 15:13 03/22/19 15:13 03/22/19 15:13 03/22/19 15:13 03/22/19 15:13 Vital Signs Reviewed: Yes Appearance: Positive: Well-Nourished, Ill-Appearing - appears mildly fatigued Skin: Positive: Warm, Skin Color Reflects Adequate Perfusion, Dry - no rash Head/Face: Positive: Normal Head/Face Inspection Eyes: Positive: Normal, EOMI, MANOHAR, Conjunctiva Clear. Negative: Conjunctiva Inflammed, Discharge ENT: Positive: Pharynx normal, TMs normal, Tonsillar swelling, Tonsillar exudate - Scant white coating on Rt tonsil + 2-3; Lt +2, Sinus tenderness - frontal/maxillary, Uvula midline, Other - tragus TTP B/L; handling secretions well - drinking ice water. Negative: Nasal congestion, Nasal drainage, Hoarse voice, Dental tenderness Dental: Negative: Abscess @ Neck: Positive: Supple, Tenderness @ - submandibular TTP B/L - mild edema of LN' s here Respiratory/Lung Sounds: Positive: Breath Sounds Present. Negative: Stridor, Unable to speak in full sentences Cardiovascular: Positive: Normal, RRR Abdomen Description: Positive: Nontender, No Organomegaly, Soft Bowel Sounds: Positive: Present Musculoskeletal: Positive: Normal, Strength/ROM Intact Neurological: Positive: Normal, Sensory/Motor Intact, Alert, Oriented to Person Place, Time, CN Intact II-III Psychiatric: Positive: Normal - Laxmi Coma Scale Best Eye Response: 4 - Spontaneous Best Motor Response: 6 - Obeys Commands Best Verbal Response: 5 - Oriented Coma Scale Total: 15 Diagnostics - Vital Signs Vital Signs Temp Pulse Resp BP Pulse Ox 03/22/19 15:13 98.7 F 88 16 115/70 98 - Laboratory Result Diagrams: 03/22/19 16:41 03/22/19 16:41 Lab Statement: Any lab studies that have been ordered have been reviewed, and results considered in the medical decision making process. EENT Course/Dx - Course Course Of Treatment: Pt signed out to Elsie Smith PA-C pending CT scan to assess for abscess and sinus infection. Pt stable at time of transition of care. - Diagnoses Provider Diagnoses: Sore throat Discharge - Sign-Out/Discharge Documenting (check all that apply): Sign-Out Patient Signing out patient TO: Marielena Smith Patient Received Moderate/Deep Sedation with Procedure: No - Discharge Plan Condition: Stable Referrals: Ina Bowers MD [Primary Care Provider] - - Billing Disposition and Condition Condition: STABLE
[2019-03-22 16:50] LABS: ABS Basophils 0.1 10^3/ul (0-0.2); ABS Lymphocytes 1.8 10^3/ul (1.0-4.8); ABS Neutrophils 6.1 10^3/ul (1.5-7.7); Eosinophil % 0.5 %; Hematocrit 37 % (35-47); Hemoglobin 12.4 g/dL (12.0-16.0); Mean Corpuscular HGB Conc 34 g/dL (31-36); Mean Corpuscular Hemoglobin 31 pg (27-31); Mean Corpuscular Volume 92 fL (80-97); Mean Platelet Volume 6.8 fL (7.4-10.4); Nucleated Red Blood Cells % 0.1; Platelet Count 211 10^3/uL (150-450); Red Blood Count 3.97 10^6 /uL (3.70-4.87); Red Cell Distribution Width 12 % (10-15)
[2019-03-22 17:08] LABS: ALT 8 U/L (7-52); AST 12 U/L (13-39); Albumin 3.9 g/dL (3.2-5.2); Albumin/Globulin Ratio 1.3 (1-3); Alkaline Phosphatase 76 U/L (34-104); Anion Gap 7 mmol/L (2-11); Blood Urea Nitrogen 13 mg/dL (6-24); CO2 Carbon Dioxide 24 mmol/L (22-32); Calcium 9.1 mg/dL (8.6-10.3); Chloride 104 mmol/L (101-111); EGFR African American 133.3 (>60); EGFR Non-African American 110.2 (>60); Glucose 82 mg/dL (70-100); Potassium 3.7 mmol/L (3.5-5.0); Sodium 135 mmol/L (135-145); Total Protein 6.9 g/dL (6.4-8.9)
[2019-03-22 17:14] LABS: HCG Pregnancy < 0.60 mIU/mL
[2019-03-22] MEDS ORDERED: Iohexol 300* (CONTRAST) 10 ML SDV IV ONE (17:31)
--- NOTE | 2019-03-22 18:12 | ED ---
Progress - Progress Note Progress Note: patient signed out by Odalis LOPEZ pending CT for disposition IMPRESSION: Mild bilateral tonsillitis right greater than left. No evidence of peritonsillar abscess. Re-Evaluation - Re-Evaluation First Eval Re-Evaluation Time: 19:12 Comment: asat able to tolerate sandwich Course/Dx - Course Course Of Treatment: 28 year old female presents with sore throat for 2 weeks. was evaulated at urgent care and sent here for further work up for potential abscess. vitals have been stable here. wbc normal. patient was signed out by Odalis pending CT. Ct shows no abscess. will add clindamycin and steriod due to potential for early peritonsillar abscess. patient understand and agrees with plan. - Diagnoses Provider Diagnoses: Sore throat Discharge - Sign-Out/Discharge Documenting (check all that apply): Patient Departure, Receiving Sign-Out Receiving patient FROM: Odalis Mike Patient Received Moderate/Deep Sedation with Procedure: No - Discharge Plan Condition: Good Disposition: HOME Prescriptions: Clindamycin Cap(NF) [Clindamycin Cap 300 mg Cap(NF)] 300 mg PO TID #20 cap Dexamethasone TAB* [Decadron TAB*] 4 mg PO DAILY #4 tab Patient Education Materials: Pharyngitis (ED) Referrals: Ina Bowers MD [Primary Care Provider] - Blaine Barnes MD [Medical Doctor] - Additional Instructions: Take clindamycin three times a day for 7 days Take steroid once a day for 4 days use tyenlol or ibuprofen every 6 hours for pain Follow up with ENT if no improvement Can gargle salt water Can use cough drops or products such as cloraseptic spray Return to ED if develop fever does not respond to Tylenol or ibuprofen, inability to swallow, or difficulty breathing or any new or worsening symptoms - Billing Disposition and Condition Condition: GOOD Disposition: Home
[2019-03-22 18:58] VITALS: BP 119/66
--- NOTE | 2019-03-25 17:27 | UC ---
- Progress Note Progress Note: 03/25/2019 Throat culture final report: normal celestine. Pt Dx w/ peritosillar abscess and was sent to ER and Rx Clindamycin PO No change Mateusz TORIBIO Course/Dx - Diagnoses Provider Diagnoses: Sore throat Discharge - Sign-Out/Discharge Documenting (check all that apply): Post-Discharge Follow Up Patient Received Moderate/Deep Sedation with Procedure: Yes - Discharge Plan Condition: Good Disposition: HOME Prescriptions: Clindamycin Cap(NF) [Clindamycin Cap 300 mg Cap(NF)] 300 mg PO TID #20 cap Dexamethasone TAB* [Decadron TAB*] 4 mg PO DAILY #4 tab Patient Education Materials: Pharyngitis (ED) Referrals: Ina Bowers MD [Primary Care Provider] - Blaine Barnes MD [Medical Doctor] - Additional Instructions: Take clindamycin three times a day for 7 days Take steroid once a day for 4 days use tyenlol or ibuprofen every 6 hours for pain Follow up with ENT if no improvement Can gargle salt water Can use cough drops or products such as cloraseptic spray Return to ED if develop fever does not respond to Tylenol or ibuprofen, inability to swallow, or difficulty breathing or any new or worsening symptoms - Billing Disposition and Condition Condition: GOOD Disposition: Home - Attestation Statements Provider Attestation: I was available for consult. This patient was seen by the PRASHANT. The patient was not presented to, seen by, or examined by me. -Jonathon
== END 2019-03-22 18:57 | disposition home or self-care (01) ==
LOC: ED 15:12
DX: J02.9 Acute pharyngitis, unspecified (principal); Z88.0 Allergy status to penicillin; Z88.2 Allergy status to sulfonamides; Z87.891 Personal history of nicotine dependence
CPT/HCPCS: 36415; 70491; 80053; 83605; 84702; 85025; 86140; 86308; 87040; 96361; 96365; 96375; 99282; J1885; J2930; Q9967

== ENCOUNTER 2019-04-27 13:34 | Emergency (ER) | payer OTHER ==
[2019-04-27 13:42] VITALS: BP 123/65
[2019-04-27] MEDS ORDERED: predniSONE TAB* 20 MG PO ONE (14:05)
[2019-04-27] MEDS ORDERED: Naproxen TAB* 250 MG PO ONE (14:05)
[2019-04-27] MEDS ORDERED: Magic Mouth Was-BEN/MAAL/LIDO SWISH SWAL ONE (14:05)
--- NOTE | 2019-04-27 14:06 | ED ---
Throat Pain/Nasal Congestion - HPI Summary HPI Summary: Pt. is a 28 y.o female who presents to the ER for sore throat and pain with swallowing since yesterday. Pt. states she has a hx of recurrent strep infections and is due to have her tonsils out in May. Pt. states yesterday she started with tonsilar edema and difficulty swallowing secondary to pain. No fever, ear pain, cough, n/v. No other past medical hx. Pt. notes her children have been sick with similar sxs. Sxs are mild in severity. - History of Current Complaint Chief Complaint: EDThroatPain Time Seen by Provider: 04/27/19 13:46 Hx Obtained From: Patient - Allergies/Home Medications Allergies/Adverse Reactions: Allergies Allergy/AdvReac Type Severity Reaction Status Date / Time Penicillins Allergy Hives Verified 03/22/19 15:18 Sulfa (Sulfonamide Allergy Hives Verified 03/22/19 15:18 Antibiotics) PMH/Surg Hx/FS Hx/Imm Hx Previously Healthy: Yes Endocrine/Hematology History: Denies: Hx Diabetes, Hx Thyroid Disease Cardiovascular History: Reports: Other Cardiovascular Problems/Disorders - pt developed HTN after giving 12 weeks Denies: Hx Congestive Heart Failure, Hx Hypertension Respiratory History: Denies: Hx Asthma, Hx Chronic Obstructive Pulmonary Disease (COPD) GI History: Reports: Other GI Disorders - pt states she has acid reflux after Denies: Hx Ulcer History: Reports: Hx Renal Disease - preeclampsia, Other Problems/ Disorders - pt had preclampsia with protein in urine Sensory History: Denies: Hx Eye Prosthesis, Hx Legally Blind, Hx Deafness Opthamlomology History: Denies: Hx Eye Prosthesis, Hx Legally Blind Neurological History: Reports: Other Neuro Impairments/Disorders - pt c/o dizziness and feeling pressure in head Psychiatric History: Reports: Hx Anxiety, Hx Depression - Surgical History Surgery Procedure, Year, and Place: RIGHT OOPHERECTOMY 2018 - Immunization History Date of Tetanus Vaccine: Up to Date Date of Influenza Vaccine: None Infectious Disease History: No Infectious Disease History: Denies: Hx Clostridium Difficile, Hx Hepatitis, Hx Human Immunodeficiency Virus (HIV), Hx of Known/Suspected MRSA, Hx Shingles, Hx Tuberculosis, Hx Known/ Suspected VRE, Hx Known/Suspected VRSA, History Other Infectious Disease, Traveled Outside the [place] in Last 30 Days - Family History Known Family History: Positive: Cardiac Disease - Not immediate family, uncle, Hypertension, Non-Contributory Negative: Blood Disorder - blood clots - Social History Occupation: Employed Full-time Lives: With Family Alcohol Use: Rare Alcohol Amount: quit 20 days ago Hx Substance Use: Yes Substance Use Type: Reports: None Substance Use Comment - Amount & Last Used: quit M 25 days ago Hx Tobacco Use: Yes Smoking Status (MU): Current Every Day Smoker Type: Cigarettes Amount Used/How Often: 1/2 pp day Length of Time of Smoking/Using Tobacco: 9 years Have You Smoked in the Last Year: No Review of Systems Constitutional: Negative Negative: Fever, Chills Eyes: Negative Positive: Sore Throat. Negative: Ear Ache, Nasal Discharge Respiratory: Negative Negative: Shortness Of Breath, Cough Gastrointestinal: Negative Negative: Abdominal Pain, Vomiting, Diarrhea Genitourinary: Negative Negative: dysuria Skin: Negative Neurological: Negative All Other Systems Reviewed And Are Negative: Yes Physical Exam Triage Information Reviewed: Yes Vital Signs On Initial Exam: Initial Vitals Temp Pulse Resp BP Pulse Ox 98 F 79 20 123/65 97 04/27/19 13:39 04/27/19 13:39 04/27/19 13:39 04/27/19 13:39 04/27/19 13:39 Vital Signs Reviewed: Yes Appearance: Positive: Well-Appearing - Pt. sitting on bed in NAD. Skin: Positive: Warm, Dry Head/Face: Positive: Normal Head/Face Inspection Eyes: Positive: Normal, EOMI, MANOHAR, Conjunctiva Clear ENT: Positive: TMs normal, Other - Oral pharynx injected with mild bilateral tonsilar edema. Small amount of exudate on the right. Uvula midline without edema. No muffled voice or trismus. Neck: Positive: Supple, Nontender, No Lymphadenopathy. Negative: Nuchal Rigidity Respiratory/Lung Sounds: Positive: Clear to Auscultation, Breath Sounds Present Cardiovascular: Positive: Normal, RRR Musculoskeletal: Positive: Normal, Strength/ROM Intact Neurological: Positive: Normal, CN Intact II-III Diagnostics - Vital Signs Vital Signs Temp Pulse Resp BP Pulse Ox 04/27/19 13:39 98 F 79 20 123/65 97 - Laboratory Lab Statement: Any lab studies that have been ordered have been reviewed, and results considered in the medical decision making process. EENT Course/Dx - Course Course Of Treatment: Patient presenting with mild tonsillar edema and pain. She is afebrile and well-appearing. No evidence of tonsillar abscess on exam. Rapid strep is negative. Suspect viral etiology. Patient given a few days of prednisone for edema and pain as well as magic swizzle. To follow-up with ENT. Increase fluids and rest. Return to the ER if symptoms change or worsen. Patient understands and agrees with plan. - Differential Diagnoses Differential Diagnoses: Periodontic Abscess, Pharyngitis, Tonsilitis - Diagnoses Provider Diagnoses: Pharyngitis Discharge - Sign-Out/Discharge Documenting (check all that apply): Patient Departure Patient Received Moderate/Deep Sedation with Procedure: No - Discharge Plan Condition: Good Disposition: HOME Prescriptions: Magic Mouth Was-JANNA/MAAL/LIDO* 5 ml SWISH SPIT QID #60 ml predniSONE TAB* [Deltasone 20 MG TAB*] 40 mg PO DAILY #10 tab Patient Education Materials: Tonsillitis (ED) Referrals: Ina Bowers MD [Primary Care Provider] - Elan Marshall MD [Medical Doctor] - Additional Instructions: Call ENT office tomorrow for close follow up appointment Medication as directed Increase fluids Return to ER if symptoms change or worsen - Billing Disposition and Condition Condition: GOOD Disposition: Home
[2019-04-27 14:44] LABS: Rapid Strep Molecular Negative (Negative)
== END 2019-04-27 15:23 | disposition home or self-care (01) ==
LOC: ED 13:34
DX: J02.9 Acute pharyngitis, unspecified (principal); F17.210 Nicotine dependence, cigarettes, uncomplicated; Z88.0 Allergy status to penicillin; Z88.2 Allergy status to sulfonamides
CPT/HCPCS: 87651; 99282; A9270-GY; J7512

== ENCOUNTER 2019-11-23 02:28 | Emergency (ER) | payer OTHER ==
[2019-11-23] MEDS ORDERED: Albuterol/Ipratropium NEB.SOL* Albuterol 2.5 MG/Ipratropium 0.5 MG 3 ML INH ONE (03:01)
[2019-11-23 03:05] LABS: Influenza B Molecular POSITIVE (Negative)
--- NOTE | 2019-11-23 03:08 | ED ---
Influenza-Like Illness - HPI Summary HPI Summary: 29 year old female presents to the ED with a chief complaint of chest pain secondary to severe cough starting 2 days ago. Patient reports inability to talk when coughing. Cough productive with brown sputum. Chest tightness with coughing. Patient also reports fever, chills, and myalgia. no nausea, vomiting or diarrhea. Patient takes medications for anxiety. Denies Hx of asthma. FHx of DM. Former smoker. Drinks alcohol and smokes marijuana occasionally. She claims to not have come in contact with anyone with similar symptoms recently. - History of Current Complaint Chief Complaint: EDFluSymptoms Time Seen by Provider: 11/23/19 02:32 Hx Obtained From: Patient Onset/Duration: Gradual Onset, Lasting Days, Still Present Severity: Severe Associated Signs & Symptoms: Fever, Myalgia, Cough - Allergy/Home Medications Allergies/Adverse Reactions: Allergies Allergy/AdvReac Type Severity Reaction Status Date / Time Penicillins Allergy Hives Verified 11/23/19 02:38 Sulfa (Sulfonamide Allergy Hives Verified 11/23/19 02:38 Antibiotics) PMH/Surg Hx/FS Hx/Imm Hx Endocrine/Hematology History: Denies: Hx Diabetes, Hx Thyroid Disease Cardiovascular History: Reports: Other Cardiovascular Problems/Disorders - pt developed HTN after giving 12 weeks Denies: Hx Congestive Heart Failure, Hx Hypertension Respiratory History: Denies: Hx Asthma, Hx Chronic Obstructive Pulmonary Disease (COPD) GI History: Reports: Other GI Disorders - pt states she has acid reflux after Denies: Hx Ulcer History: Reports: Hx Renal Disease - preeclampsia, Other Problems/ Disorders - pt had preclampsia with protein in urine Sensory History: Denies: Hx Eye Prosthesis, Hx Legally Blind, Hx Deafness Opthamlomology History: Denies: Hx Eye Prosthesis, Hx Legally Blind Neurological History: Reports: Other Neuro Impairments/Disorders - pt c/o dizziness and feeling pressure in head Psychiatric History: Reports: Hx Anxiety, Hx Depression - Surgical History Surgery Procedure, Year, and Place: RIGHT OOPHERECTOMY 2018 - Immunization History Date of Tetanus Vaccine: Up to Date Date of Influenza Vaccine: did not receive Infectious Disease History: No Infectious Disease History: Denies: Hx Clostridium Difficile, Hx Hepatitis, Hx Human Immunodeficiency Virus (HIV), Hx of Known/Suspected MRSA, Hx Shingles, Hx Tuberculosis, Hx Known/ Suspected VRE, Hx Known/Suspected VRSA, History Other Infectious Disease, Traveled Outside the [place] in Last 30 Days - Family History Known Family History: Positive: Cardiac Disease - Not immediate family, uncle, Hypertension, Non-Contributory Negative: Blood Disorder - blood clots - Social History Alcohol Use: Weekly Alcohol Amount: quit 20 days ago Hx Substance Use: Yes Substance Use Type: Reports: Marijuana Substance Use Comment - Amount & Last Used: quit M 25 days ago Hx Tobacco Use: Yes Smoking Status (MU): Former Smoker Type: Cigarettes Amount Used/How Often: 1/2 PPD Length of Time of Smoking/Using Tobacco: 9 years Have You Smoked in the Last Year: No Review of Systems - ROS Summary Review of Systems Summary: Home Medications Medication Instructions Recorded Confirmed Type Escitalopram * [Lexapro 10 mg (NF)] 5 mg PO DAILY 10/09/18 11/23/19 History clonazePAM [Clonazepam] 1 mg PO DAILY 10/09/18 11/23/19 History Ibuprofen TAB* [Motrin TAB* 800 MG] 800 mg PO Q6H PRN 03/22/19 11/23/19 History Triamcinolone 0.1% CREAM (NF) 1 applic TOPICAL DAILY 05/31/19 11/23/19 History [Kenalog 0.1% Cream (NF)] Oseltamivir CAP* [Tamiflu CAP*] 75 mg PO BID #10 cap 11/23/19 Rx Positive: Fever, Chills Positive: Chest Pain Positive: Shortness Of Breath, Cough - Productive, brown sputum Positive: Myalgia All Other Systems Reviewed And Are Negative: Yes Physical Exam - Summary Physical Exam Summary: General: Obese nourished female. No acute distress. Mildly ill appearing. HEENT: Normocephalic, Atraumatic. Eyes: Conjuctiva normal, PERRL. Ears: TMs within normal limits. Nares: (-) discharge, (-) erythema. Oropharynx: Clear, mucous membranes moist, (-) exudates. Neck: Soft, FROM, (-) lymphadenopathy, (-) thyromegaly, (-) JVD. Cardiovascular: Normal sinus rhythm, (-) murmur. Lungs: Prolonged expiration. Transmitted upper airway noises. (-) wheezes, (-) rales, (-) rhonchi. Abdomen: Soft, non-tender, non-distended, (-) organomegaly, normal bowel sounds. Back: (-) CVA tenderness Extremities: No edema. Skin: Warm, dry, (-) rash. Neuro: Alert and oriented x3, no focal deficits. Psychiatric: Mood normal, affect normal. Triage Information Reviewed: Yes Vital Signs On Initial Exam: Initial Vitals Temp Pulse Resp BP Pulse Ox 99.9 F 90 16 136/99 97 11/23/19 02:30 11/23/19 02:30 11/23/19 02:30 11/23/19 02:30 11/23/19 02:30 Vital Signs Reviewed: Yes Procedures - Sedation Patient Received Moderate/Deep Sedation with Procedure: No Diagnostics - Vital Signs Vital Signs Temp Pulse Resp BP Pulse Ox 11/23/19 02:35 103 136/99 98 11/23/19 02:34 94 98 11/23/19 02:30 99.9 F 90 16 136/99 97 - Laboratory Lab Results: Lab Results 11/23/19 Range/Units 02:45 Influenza A (Rapid) Pending Influenza B (Rapid) Pending Lab Statement: Any lab studies that have been ordered have been reviewed, and results considered in the medical decision making process. - Radiology CXR Radiology Interpretation Completed By: ED Physician Summary of Radiographic Findings: No infiltrate or effusion. An ED physician has reviewed and interpreted this report. Pending official read. Flu Symptom Course/Dx - Course Course Of Treatment: 29 year old female presents with acute illness. She describes significant productive cough, chest tightness, fevers And chills for the last 2 days. Worsening achiness. No known ill contacts. She is taking [id number] medications for symptomatic relief without any success. Denies any history of asthma or breathing problems. Patient has prolonged expiration and transmitted upper airway noises on physical exam. Chest x-ray negative for pneumonia. Influenza B-positive. No relief with DuoNeb. Patient offered Tamiflu. She declined. Requested Tylenol prior to discharge. Patient discharged home. Advised plenty of fluids and rest. Ibuprofen. She was advised that she will be on rest for one week from the beginning of her symptoms. Follow-up with PCP. Follow up sooner for any worsening symptoms. - Diagnoses Provider Diagnoses: Influenza B Discharge ED - Sign-Out/Discharge Documenting (check all that apply): Patient Departure - discharge home - Discharge Plan Condition: Stable Disposition: HOME Prescriptions: Oseltamivir CAP* [Tamiflu CAP*] 75 mg PO BID #10 cap Patient Education Materials: Influenza (ED) Referrals: Ina Bowers MD [Primary Care Provider] - Additional Instructions: Follow up with your primary care provider in 2-3 days. Return to the ED if you experience new or worsened symptoms. - Billing Disposition and Condition Condition: STABLE Disposition: Home - Attestation Statements Document Initiated by Scribe: Yes Documenting Scribe: Linwood Vo Provider For Whom Ashleyibdavie is Documenting (Include Credential): Mercedes Cam MD Scribe Attestation: Linwood Tomlin, scribed for Mercedes Cam MD on 11/23/19 at 0618. Scribe Documentation Reviewed: Yes Provider Attestation: The documentation as recorded by the scribeLinwood accurately reflects the service I personally performed and the decisions made by , Mercedes Cam MD Status of Scribe Document: Viewed
[2019-11-23] MEDS ORDERED: Oseltamivir CAP* 75 MG CAP PO ONE (03:38)
--- OUTSIDE RECORDS SUMMARY | 2019-11-23 03:50 | XMS REPORT | Continuity of Care Document ---
:1990 Author Organization [facility] Address [address] [place] [address] Phone Care Team Providers Name Role Phone Rachael Davila Unavailable Unavailable Allergies, Adverse Reactions, Alerts Substance Reaction Status Sulfa (Sulfonamide Antibiotics) Active Penicillins Active Medications Medication Instructions Dosage Effective Dates Status Comments (start - stop) Elayne 30 mg tablet 1 tab po within 120 - Active hours of unprotected sex (#1) LEXAPRO (unknown Not Available - Active strength) CLONAZEPAM Not Available - Active (unknown strength) Problems Condition Effective Dates (start - Clinical Status Comments stop) Human immunodeficiency virus [HIV] - counseling Encounter for test, result negative Cervical high risk HPV DNA test positive Noninflammatory disorder of vagina, unspecified Human immunodeficiency virus [HIV] - counseling Encounter for screening for human - immunodeficiency virus Encounter for test, result negative Encounter for prescription of emergency contraception Encntr screen for infections w sexl mode of transmiss Acute vaginitis Secondary amenorrhea Encounter for test, result negative Acute vaginitis Encntr screen for infections w sexl mode of transmiss Secondary amenorrhea Encounter for test, result negative Encntr screen for infections w sexl mode of transmiss Pelvic and perineal pain Candidiasis of vulva and vagina Amenorrhea, unspecified Enctr srvlnc implantable subdermal contraceptive Encounter for initial prescription of contraceptive pills Body mass index (BMI) 25.0-25.9, adult Encounter for test, result negative Frequency of micturition Human immunodeficiency virus [HIV] - counseling Encounter for screening for human - immunodeficiency virus Encntr screen for infections w sexl mode of transmiss Candidiasis of vulva and vagina Encounter for screening for oth infec/parastc diseases Noninflammatory disorder of vagina, unspecified Unspecified ovarian cyst, left side Other ovarian cyst, left side Anemia, unspecified Encntr for general adult medical exam w/o abnormal findings Encounter for elective termination of Less than 8 weeks gestation of Enctr for init prescription of implntbl subdermal contracep Unspecified ovarian cyst, left side Encounter for test, result positive Dysuria Encounter for oth general cnsl and advice on contraception Less than 8 weeks gestation of Encntr screen for infections w sexl mode of transmiss Encounter for test, result negative Unspecified ovarian cyst, unspecified side Low grade intrepith lesion cyto smr crvx (LGSIL) Human immunodeficiency virus [HIV] - counseling Encounter for test, result negative Encounter for oth screening for malignant neoplasm of breast Encntr for document manager exam (general) (routine) w/o abn findings Encntr screen for infections w sexl mode of transmiss Encounter for oth general cnsl and advice on contraception Nicotine dependence, unspecified, uncomplicated Encounter for oth general cnsl and - advice on contraception Encounter for screening for human - immunodeficiency virus Encounter for elective termination of 9 weeks gestation of Encounter for surveillance of contraceptive pills Encounter for elective termination of Encntr screen for dis of the bld/bld-form org/immun [facility] Encounter for test, result positive Human immunodeficiency virus [HIV] - counseling Encntr screen for infections w sexl mode of transmiss 8 weeks gestation of Encounter for oth general cnsl and advice on contraception Encounter for initial prescription of contraceptive pills Encounter for screening for human - immunodeficiency virus Human immunodeficiency virus [HIV] - counseling Encounter for screening for human - immunodeficiency virus Candidiasis of vulva and vagina Encounter for test, result negative Encntr screen for infections w sexl mode of transmiss Encounter for oth general cnsl and advice on contraception Person w feared hlth complaint in whom no diagnosis is made Encounter for prescription of emergency contraception Ovarian Cyst, NOS PT, Negative Yeast-vulvovaginal Ovarian Cyst, NOS DUB Anemia, Screening AB W/O Comp, Complete EC Counseling Or RX 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 CENTER MANAGER Exam, Routine WWE STI Screening Cervicitis/Nabothian Cyst OCP, Start PT, Negative OCP, Start Yeast-vulvovaginal EC Counseling Or RX OCP, Start LABORATORY EXAM NOS RhD positive Active [facility] Procedures Procedure Date No information Results Test Name Date and Time Measure Units Reference Range Abnormal Flag Status Comments No information Advance Directives Directive Yes / No Effective Date File Name No information Encounters Encounter Practice Location Reason(s) Diagnoses Date Provider Providers Description For Visit Copied on Encounter [facility] [place] 2 [address]. [address] Of Greater [address], [place], [place], [place], [address] [address], [place], [place] tel:[phone] [place], [address], [place] tel:[phone] [facility] Human 2 [facility] Referring [facility] [place] immunodeficinyu [facility] 3 [facility]. [address] Provider: Of Greater y virus [HIV] [address], Karina [place], [place], [place], [place] [address] [place] [address]. , [address] , [facility] test, tel:[phone], [place], result [address] [place], [address], [place] negativeCervica [address]. tel:[phone] l high risk HPV tel:[phone] DNA test [id number] positiveNoninfl ammatory disorder of vagina, unspecified [facility] Human 0 [facility] [place] immunodeficienc 4201 Karina. [address] Provider: Of Greater y virus [HIV] [address], Lorie [place], counselingEncou [place], [place], Gaurang J, [address] [place] [address], [place] screening for tel:[phone] St, [place], [place] [address] [place], [address]. [address], [place] immunodeficienc tel:[phone] tel:[phone] y [phone] virusEncounter for test, result negativeEncount er for prescription of emergency contraceptionEn cntr screen for infections w sexl mode of transmissAcute vaginitis [facility] Secondary Fransico Rodriguez. [facility] [place] amenorrhea [address], [place], [place], [address]. [address] tel:[phone] St, [place] [address] [place], [address], [place] tel:[phone] [facility] Encounter for Fransico Rodriguez. Referring [facility] [place] test, [address] Provider: Of Greater result [address] St, [place], Jennifer [place], [place], [address]. [place], [address] vaginitisEncntr tel:[phone], [place] [address] St, [place], [place], [address]. [address], [place] sexl mode of tel:[phone] tel:[phone] transmissSecond [phone] ximena amenorrhea [facility] Encounter for Gaurang Referring [facility] [place] test, . Provider: Of Greater result [address], Lorie [place], negativeEncntr [place], [place], Gaurang J, [address] [place] [address], [place]. [address], New infections w tel:[phone] St, [place], [place] [address] [place], [address]. [address], [place] transmissPelvic tel:[phone] tel:[phone] and perineal [phone] painCandidiasis of vulva and vaginaAmenorrhe a, unspecified [facility] Enctr srvlnc Demian Faye. Referring [facility] [place] implantable [address] Provider: Of [facility] subdermal [address], [place], [place], [place], [address], [place], [address] counter for [place]. [address], New initial St, [place], [place], [address]. [address], [place] contraceptive tel:[phone] pillsBody mass 146507 index (BMI) 25.0-25.9, adult [facility] Encounter for Hemmer Referring [facility] [place] test, [facility] Provider: Of Greater result 9 [address]. 620 Sue[address] [place], negativeFrequen [address], Hemmer [address] cy of [place], [place], [place], St, [place] micturitionHuma [address]. [address] [place], [place], n tel:[phone] [address], [address], [place] immunodeficienc [address] [place], tel:[phone] y virus [HIV] [address]. 915077 counselingEncou tel:[phone] nter for [phone] screening for human immunodeficienc y virusEncntr screen for infections w sexl mode of transmissCandid iasis of vulva and vaginaEncounter for screening for oth infec/parastc diseasesNoninfl ammatory disorder of vagina, unspecified [facility] Unspecified Mar-0 Demian Faye. [facility] [place] ovarian cyst, [address] Of Greater left side [address], [place], [place], [address], [address], [place], [address], [place] tel:[phone] [facility] Other ovarian Mar-0 Demian Faye. [facility] [place] cyst, left side [address], [place], [place], [address], [address], [place], [address], [place] tel:[phone] [facility] Anemia, Nov-2 Parete Referring [facility] [place] unspecifiedEncn Viky. [address] Provider: Of Greater tr for general [address], Neyda [place], adult medical [place], [place], [place], [address] [place] w/o [address]. [address], New abnormal tel:[phone] St, [place], [place], [place] [address] [place], [address], [place] [address].Consu tel:[phone] [phone] Provider: NURSE [place] [facility]. [facility] Encounter for Feb-2 Judith Referring [facility] [place] elective 6 Lanny. [address] Provider: Of Greater termination of [address], Lanny [place], pregnancyLess [place], [place], Judith R, [address] than 8 weeks [address]. [address] , New gestation of tel:[phone] [facility], [place], [place], pregnancyEnctr [address] [place], [address], [place] for init [address]. tel:[phone] prescription of tel:[phone] implntbl [phone] subdermal contracepUnspec ified ovarian cyst, left side [facility] Encounter for Demian Faye. Referring [facility] [place] test, [address] Provider: Of Greater result 9 , [place], [facility] [place], [place], [address], White, [address] Encounter for [place]. W [facility], New ot general St, [place], [place], [place], [place], [address]. [address], [place] on tel:[phone] contraceptionLe [phone] ss than 8 weeks gestation of pregnancyEncntr screen for infections w sexl mode of transmissEncoun ter for test, result negativeUnspeci fied ovarian cyst, unspecified side [facility] Low grade Oct- Judith Referring [facility] [place] intrepith 6 Lanny. 620 W Provider: Of Greater lesion cyto smr 8 [facility], [facility], crvx (LGSIL) [place], [place], Judith R, [address] [address]. [address] , New tel:[phone] [facility], [place], [address] [place], [address], [place] [address]. tel:[phone] tel:[phone] [facility] Human Sep-2 Hemmer [facility] [place] immunodeficienc 7- [place] Of Greater y virus [HIV] 8 [address]. 620 [place], counselingEncou W [facility], [address] nter for [place], [place], St, [place] test, [address]. [place], [place], result tel:[phone] [address], [place] negativeEncount [address] tel:[phone] er for oth [phone] screening for malignant neoplasm of breastEncntr for document manager exam (general) (routine) w/o abn findingsEncntr screen for infections w sexl mode of transmissEncoun ter for oth general cnsl and advice on contraceptionNi cotine dependence, unspecified, uncomplicatedEn counter for oth general cnsl and advice on contraceptionEn counter for screening for human immunodeficienc y virus [facility] Encounter for Mar-1 Ujdith Referring [facility] [place] elective 6 Lanny. [address] W Provider: Of [facility] termination of [address], Lanny [place], pregnancy9 [place], [place], Judith R, [address] weeks gestation [address], [place] of tel:[phone] [address] , [place], [place], pregnancyEncoun [address] [place], [address], [place] [address]. tel:[phone] surveillance of tel:[phone] contraceptive [phone] pills [facility] Encounter for Dec- Demian Faye. [facility] [place] elective [address] Of Greater termination of [address], [place], [place], [address], [address], [place], [address], [place] tel:[phone] [facility] Encntr screen Mar-0 Parete Referring [facility] [place] for dis of the Viky. [address] Provider: Of [facility] bld/bld-form [address], Viky [place], org/immun [place], Parete, [address] mechnsmEncounte [address]. [address], New r for tel:[phone] St, [place], [place], [place], [place] [address] [place], [address]. [address], [place] positiveHuman tel:[phone] tel:[phone] immunodeficienc [phone] y virus [HIV] counselingEncnt r screen for infections w sexl mode of transmiss8 weeks gestation of pregnancyEncoun ter for oth general cnsl and advice on contraceptionEn counter for initial prescription of contraceptive pillsEncounter for screening for human immunodeficienc y virus [facility] Human Nov- [facility] immunodeficienc 2 Provider: Of [facility] y virus [HIV] 7 NURSE OR KIRBY [place], counselingEncou [facility]. [address] nter for [facility] screening [place], human [address], [place] immunodeficienc tel:[phone] y virus [phone] [facility] Candidiasis of Raphaelidis [facility] [place] vulva and Karina. [address] Of Greater vagina [address], [place], [place], [place], [address] [address]. , [facility] tel:[phone] [place], [address], [place] tel:[phone] [facility] Encounter for White Neyda. [facility] [place] test, [address] Of Greater result [address] St, [place], [place], [place], [address], [address] for [place]. St, infections [place], [place], [place] [address], [place] transmissEncoun tel:[phone] ter for oth [phone] general cnsl and advice on contraceptionPe rson w feared hlth complaint in whom no diagnosis is made [facility] Encounter for Hemmer [facility] [place] prescription of [place] Of Greater emergency 6 [address]. [address] [place], contraception [address], [address] [place], [place], , [facility] [address]. [place], tel:[phone] [address], [place] [address] tel:[phone] [facility] Ovarian Cyst, [facility] NOS Shyann. [address] Of Greater [address], [place], [place], [address] [address]. , [facility] tel:[phone] [place], [address], [place] tel:[phone] [facility] PT, [facility] NegativeYeast-v Viky. [address] Of Greater ulvovaginalOvar [address] [place], [place], joseluis Cyst, [place], [place], [address] NOSDUB [address]. , [facility] tel:[phone] [place], [address], [place] tel:[phone] [facility] Anemia, Judith [facility] ScreeningAB W/O 0-201 Lanny. [address] Of Greater Comp, Complete [address] , [place], [place], [place], [address] [address]. , New tel:[phone] [place], [address], [place] tel:[phone] [facility] EC Counseling Fransico Rodriguez. [facility] [place] Or RX [address], [place], [place], [address]. [address] tel:[phone] , [facility] [address] [place], [address], [place] tel:[phone] [facility] SENIOR CENTER MANAGER Exam, Parete [facility] [place] Routine WWESTI Viky. [address] Of Greater ScreeningCervic 4 [place], [place], itis/Nabothian [place], [place], [address] CystOCP, Start [address]. , [facility] tel:[phone] [place], [address], [place] tel:[phone] [facility] PT, Fransico Rodriguez. [facility] [place] NegativeOCP, [address] Of [facility] StartYeast-vulv 4 [address], [place], [place], [address]. [address] tel:[phone] [facility] [address] [place], [address], [place] tel:[phone] [facility] Judith [facility] [place] 8-201 Lanny. [address] Of Greater [address] [place], [place], [place], [place], [address] [address]. , New tel:[phone] [place], [address], [place] tel:[phone] [facility] EC Counseling Bibi Howard. [facility] [place] Or RXOCP, Start [address] Of Greater [address] [place], [place], [place], [address] [address]. , New tel:[phone] [place], [address], [place] tel:[phone] [facility] [place] 3-201 Shyann. [address], [place], [place], [address] [address]. [facility] tel:[phone] [place], [address], [place] tel:[phone] [facility] LABORATORY EXAM Sd Consulting [facility] [place] NOS 3-201 Shyann. [address] Provider: Of [address], NURSE OR KIRBY [place], PPSFL. [address] [address]. [facility] tel:[phone] [place], [address], [place] tel:[phone] Family History Family Member Diagnosis Age At Onset Father Cirrhosis 45 Mother Thyroid disorder Father High cholesterol 45 Mother Anemia Maternal grandmother Cancer, breast 60 Maternal grandfather Myocardial infarction Mother Anxiety Paternal grandmother Stroke 1st degree relative No hx of cancer of breast, colon, endometrium or ovary Father 45 Father Hypertension Father Diabetes mellitus type 2 45 1st degree relative No hx of coronary heart disease (female <65, male <55) 1st degree relative No hx of venous thromboembolism Immunizations Vaccine Date Status Comments hepatitis B vaccine, adult administered Note: Pt reports prior dosage vaccination on health history form dated 09/20/05.Invalid documented admin date was NULL/NULL. ; Source: Source Unspecified measles, mumps and rubella administered Note: Pt reports prior virus vaccine vaccination on health history form dated 09/20/05.Invalid documented admin date was NULL/NULL/2004. ; Source: Source Unspecified Payers Payer name Insurance type Covered republican ID Authorization(s) [facility] CI [id number] Social History Type Description Quantity Date Captured Comments Alcohol Use Details Unknown Caffeine Use Details Unknown Tobacco Use Status Smoking Status Heavy tobacco smoker Sex Female Vital Signs Date / Height Weight BMI Pulse Blood Temperature Respiratory Body Head BMI Pulse Inhaled Time: Rate Pressure Rate Surface Circumference percentile Ox Ox Area No information Chief Complaint And Reason For Visit No information Reason For Referral Reason For Referral No information Plan Of Treatment Date Type Action Status Goal Tobacco cessation counseling completed Goal Tobacco cessation counseling completed Referral Ordered: ordered Referrals: Millinery Blocker. Evaluate and treat Referral Ordered: ordered [place] [facility] -Millinery Blocker (related to Unspecified ovarian cyst, left side ) Referral Ordered: ordered [place] [facility] -Millinery Blocker (related to Other ovarian cyst, left side) Referral Referred To: ordered [place] [facility] Ordered: Referrals: Millinery Blocker. [place] [facility]. Assume care Referral Ordered: ordered [facility] (related to Ovarian Cyst, NOS) Referral Referred To: ordered [facility] Ordered: Referrals: Millinery Blocker. [facility] Location: [place]. Evaluate and treat Appointment DELBERT BETHEA BOOKED History Of Present Illness Encounter Date Complaint History Of Present Illness No information Functional Status Date Functional Assessment No information Medications Administered Medication Instructions Dosage Effective Dates (start - stop) Status Comments No information Instructions Date Instruction Additional Information No information Assessments Type Assessment Date No information Goals Health Concern Goal Type Priority Status Date No information Medical Equipment Description Device Hereford Device Identifier Effective Dates (start - stop ) Status No information Mental Status Date Cognitive Assessment No information Health Concerns Observation Date No information Concern Status Date No information
--- OUTSIDE RECORDS SUMMARY | 2019-11-23 03:50 | XMS REPORT | Continuity of Care Document ---
:1990 Author Organization [facility] Address [address] [place] [address] Phone Care Team Providers Name Role Phone Neyda Arciniega NP Unavailable Unavailable Allergies, Adverse Reactions, Alerts Substance [...] Dates (start - Clinical Status Comments stop) Frequency of micturition Encounter for test, result negative Encounter for oth general cnsl and advice on contraception Noninflammatory disorder of vagina, unspecified Human immunodeficiency [...] for test, result positive Dysuria Encounter for ot general cnsl and advice on contraception Less than 8 weeks gestation of Encntr screen for infections w sexl mode of transmiss Encounter for test, result negative Unspecified ovarian cyst, unspecified side Low grade intrepith lesion cyto smr crvx (LGSIL) Human immunodeficiency virus [HIV] - counseling Encounter for test, result negative Encounter for ot screening for malignant neoplasm of breast 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) w/o abn findings Encntr screen for infections w sexl mode of transmiss Encounter for ot general cnsl and advice on contraception Nicotine dependence, unspecified, uncomplicated Encounter for ot general cnsl and - advice on contraception Encounter for screening for human - immunodeficiency virus Encounter for elective termination of 9 weeks gestation of Encounter for surveillance of contraceptive pills Encounter for elective termination of Encntr screen for dis of the bld/bld-form org/immun [facility] Encounter for test, result positive Human immunodeficiency virus [HIV] - counseling Encntr screen for infections w sexl mode of transmiss 8 weeks gestation of Encounter for ot general cnsl and advice on contraception Encounter [...] W/O Comp, Complete EC Counseling Or RX 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 Exam, Routine WWE STI Screening Cervicitis/Nabothian Cyst OCP, Start PT, Negative OCP, Start Yeast-vulvovaginal EC Counseling Or RX OCP, Start LABORATORY EXAM NOS RhD positive [facility] Procedures Procedure Date URINE TEST URINALYSIS, DIP NONAUTO W/O SCOPE OFFICE/OUTPATIENT VISIT, EST WET SMEAR ASSAY OF BODY FLUID-PH Results Test Name Date and Time Measure Units Reference Range Abnormal Flag Status Comments Panel Description: Wet Mount Final Wet Mount 12:16:15 NegativeHyphae/Amarilis: noBudding Final yeast: noTrich: noClue cells: noWBCs: noAmine/Whiff test: negativepH: 3.5 Panel Description: Urine Dipstick Final Urine Dipstick 12:03:02 Glucose: negativeKetones: Final negativeProtein: negativeNitrite: negativeLeukocytes: negativeBlood: trace non-hemolyzedpH: 6.0 Panel Description: High Sensitivity Urine Test Final High Sensitivity Urine 12:02:45 NegativeInternal Quality Final Test Control: Positive Advance Directives Directive Yes / No Effective Date File Name No information Encounters Encounter Practice Location Reason(s) Diagnoses Date Provider Providers Description For Visit Copied on Encounter OFFICE/OUTPA [facility] Vaginal Frequency of White Neyda. Referring TIENT VISIT, [facility] [place] Discharge micturitionEnco [address] Provider: EST Of Greater a/o Odor unter [facility], ([place], [address], Gaurang J, [address] complaint) result [place]. [address], New negativeEncount St, [place], [place], [place], [place], [address]. [id number], general cnsl tel:[phone] [place] and advice on [id number] tel:[phone] contraceptionNo [id number] ninflammatory disorder of vagina, unspecified [facility] [place] Rachael. [address] Of Greater 0 W [facility], [place], [place], [place], [address] [address], [place]. St, New tel:[phone] [place], [id number], [place] tel:[phone] [facility] Human Raphaelidis Referring [facility] [place] immunodeficienc 3 [facility]. [address] Provider: Of Greater y virus [HIV] 9 [facility], [facility], counselingEncou [place], [place], Raphaelidis [address] [place] [address]. , [address] , New test, tel:[phone] [facility], [place], [place] [address] [place], [place], [id number], negativeCervica [address]. [place] l high risk HPV tel:[phone] tel:[phone] DNA test [id number] positiveNoninfl ammatory disorder of vagina, unspecified [facility] Human [facility] Referring [facility] [place] immunodeficienc 4 Karina. [address] Provider: Of Greater y virus [HIV] 9 [facility], [facility], [place], [place], Gaurang Valdez, [address] [place] [address]. W [facility], New screening for tel:[phone] , [place], [place] [address] [place], [address]. [id number], immunodeficienc tel:[phone] [place] y 959139 tel:[phone] virusEncounter 689070 for test, result negativeEncount er for prescription of emergency contraceptionEn cntr screen for infections w sexl mode of transmissAcute vaginitis [facility] Secondary Bateman Jennifer. [facility] [place] amenorrhea [address] Of [address], [place], [place], [address]. [address] tel:[phone] , [place] [address] [place], [place], [id number], [place] tel:[phone] [facility] Encounter for Bateman Jennifer. Referring [facility] [place] test, [address] Provider: Of Greater result [address], [place], [place], [place], [address]. Bateman, [address] vaginitisEncntr tel:[phone] [address], [place] [address] St, [place], [place], [place], [address]. [id number], sexl mode of tel:[phone] [place] transmissSecond [id number] tel:[phone] ximena amenorrhea [phone] [facility] Encounter for Gaurang Referring [facility] [place] test, Lorie. 620 Provider: Of Greater result [address], Lorie [place], negativeEncntr [place], [place], Gaurang J, [address] [place] [address], [place]. [address], New infections w tel:[phone] St, [place], [place] [address] [place], [address]. [id number], transmissPelvic tel:[phone] [place] and perineal 460220 tel:[phone] painCandidiasis 740490 of vulva and vaginaAmenorrhe a, unspecified [facility] Enctr srvlnc Demian Faye. Referring [facility] [place] implantable [address] Provider: Of Greater subdermal [address], [place], [place]da [place], [place], [address], White, [address] counter for [place]. [address], New initial St, [place], [place], [address]. [id number], contraceptive [place] pillsBody mass tel:[phone] index (BMI) 787056 25.0-25.9, adult [facility] Encounter for Hemmer Referring [facility] [place] test, Belinda Provider: Of Greater result 9 Sueane. [address] Sueane [place], negativeFrequen W [address], Hemmer [address] cy of [place], [place], [place], St, New micturitionHuma [address]. [address] [place], [place], n tel:[phone] [address], [id number], immunodeficienc [address] [place], [place] y virus [HIV] [address]. tel: counselingEncou tel: [phone] nter for 682981 screening for human immunodeficienc y virusEncntr screen for infections w sexl mode of transmissCandid iasis of vulva and vaginaEncounter for screening for oth infec/parastc diseasesNoninfl ammatory disorder of vagina, unspecified [facility] Unspecified Mar-0 Demian Faye. [facility] [place] ovarian cyst, [address] Of Greater left side 9 , [place], [place], [address], [address] [place]. [place], [place], [id number], [place] tel: [phone] [facility] Other ovarian Mar-0 Demian Faye. [facility] [place] cyst, left side [address] Of Greater 9 , [place], [place], [address], [address] [place]. [place], [place], [id number], [place] tel: [phone] [facility] Anemia, Parete Referring [facility] [place] unspecifiedEncn Viky. [address] Provider: Of Greater tr for general 9 [facility], adult medical [place], [place], White, [address] exam w/o [address]. W [facility], [place] abnormal tel:[phone] , [place], [place] [address] [place], [id number], [address].Consu [place] lting tel: Provider: [phone] NURSE [place] [facility]. [facility] Encounter for Judith Referring [facility] [place] elective 6 Lanny. [address] Provider: Of Greater termination of 9 [facility], Lanny [place], pregnancyLess [place], [place], Judith R, [address] than 8 weeks [address]. [address] , [place] gestation of tel:[phone] [place], pregnancyEnctr [address] [place], [place], [id number], [place] [address]. [place] prescription of tel:[phone] tel:[phone] implntbl [phone] subdermal contracepUnspec ified ovarian cyst, left side [facility] Encounter for Nov- Demian Faye. Referring [facility] [place] test, [address] Provider: Of Greater result 9 St, [place], [place]da [place], [place], [address], White, [address] Encounter for [place]. W [address], New oth general St, [place], [place], [place], [place], [address]. [id number], on [place] contraceptionLe tel:[phone] ss than 8 weeks 297646 gestation of pregnancyEncntr screen for infections w sexl mode of transmissEncoun ter for test, result negativeUnspeci fied ovarian cyst, unspecified side [facility] Low grade Oct- Judith Referring [facility] [place] intrepith Lanny. [address] Provider: Of Greater lesion cyto smr 8 [facility], Lanny [place], crvx (LGSIL) [place], [place], Judith R, [address] [address], New tel:[phone], [place], [address] [place], [place], [id number], [address]. [place] tel:[phone] tel:[phone] [facility] Human Sep-2 Hemmer [facility] [place] immunodeficienc [place] Of Greater y virus [HIV] 8 Sueane. [address] [place], counselingEncou [address], [address] nter for [place], [place], St, [place], [address]. 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 [address] Provider: Of [facility] termination of [address], Lanny [place], pregnancy9 [place], [place], Judith R, [address] weeks gestation [address], New of tel:[phone] [address], [place], [place], pregnancyEncoun [address] [place], [place], [id number], [place] [address]. [place] surveillance of tel:[phone] tel:[phone] contraceptive [phone] pills [facility] Encounter for Mar-1 Demian Faye. [facility] [place] elective 201 [address] Of [facility] termination of [address], [place], [place], [address], [address] [place]. [place], [place], [id number], [place] tel:[phone] [facility] Encntr screen Mar-0 Parete Referring [facility] [place] for dis of the [employer]. [address] Provider: Of [facility] bld/bld-form [address], Viky [place], org/immun [place], [place], Parete, [address] mechnsmEncounte [address], [facility] r for tel:[phone] , [place], [place], test, [place] [address] [place], [address]. [id number], positiveHulos [place] tel:+[phone] [place] immunodeficienc 708606 tel:[phone] y virus [HIV] 833935 counselingEncnt r screen for infections w sexl mode of transmiss8 weeks gestation of pregnancyEncoun ter for oth general cnsl and advice on contraceptionEn counter for initial prescription of contraceptive pillsEncounter for screening for human immunodeficienc y virus [facility] Human Nov-2 [facility] immunodeficienc 2-201 Provider: Of [facility] y virus [HIV] 7 NURSE [place], counselingEncou [facility]. [address] [facility] screening for [place], human [id number], immunodeficienc [place] y virus tel:[phone] [facility] Candidiasis of Live-2 Raphaelidis [facility] [place] vulva and Karina. [address] Of Greater vagina [address], [place], [place], [place], [address] [address], [place] tel:[phone] [place], [id number], [place] tel:[phone] [facility] Encounter for Demian Faye. [facility] [place] test, [address] Of Greater result 6 St, [place], [place], [place], [address], [address] screen for [place]. St, [place] infections w [place], [place], sexl mode of [id number], transmissEncoun US ter for oth tel:[phone] general cnsl [phone] and advice on contraceptionPe rson w feared hlth complaint in whom no diagnosis is made [facility] Encounter for [facility] prescription of [place] Of Greater emergency 6 Sue[address]. [address] [place], contraception [address] , [address] [place], [place], [facility] [address]. [place], tel:[phone], [address] [place] tel:[phone] [facility] Ovarian Cyst, [facility] NOS 2-201 Shyann. [address] Of Greater [address], [place], [place], [place], [address] [address]. , [facility] tel:[phone] [place], [id number], [place] tel:[phone] [facility] PT, Parete [facility] NegativeYeast-v 3- Viky. [address] Of Greater ulvovaginalOvar [address] [place], [place], joseluis Cyst, [place], [place], [address] NOSDUB [address]. , New tel:[phone] [place], [id number], [place] tel:[phone] [facility] Anemia, Jan- Judith [facility] ScreeningAB W/O 0-201 Lanny. [address] Of Greater Comp, Complete [address] [place], [place], [place], [place], [address] [address]. , New tel:[phone] [place], [id number], [place] tel:[phone] [facility] EC Counseling Fransico Rodriguez. [facility] [place] Or RX [address], [place], [place], [address]. [address] tel:[phone] [facility] [address] [place], [place], [id number], [place] tel:[phone] [facility] 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 Exam, Parete [facility] [place] Routine WWESTI Viky. [address] Of Greater ScreeningCervic [address] [place], [place], itis/Nabothian [place], [place], [address] CystOCP, Start [address]. , [facility] tel:[phone] [place], [id number], [place] tel:[phone] [facility] PT, Fransico Rodriguez. [facility] [place] NegativeOCP, [address] Of Greater StartYeast-vulv 4 [place], [place], [place], [address]. [address] tel:[phone] [facility] [address] [place], [place], [id number], [place] tel:[phone] [facility] Judith [facility] [place] Lanny. [address] Of Greater [address] [place], [place], [place], [place], [address] [address]. , [facility] tel:[phone] [place], [id number], [place] tel:[phone] [facility] EC Counseling Bibi Anita. [facility] [place] Or RXOCP, Start [address]. Of Greater [address] .[place], [place], [place], [place], [address] [address]. , [facility] tel:[phone] [place], [id number], [place] tel:[phone] [facility] [place] 3 Shyann. [address] Of Greater [address] [place], [place], [place], [place], [address] [address]. , [facility] tel:[phone] [place], [id number], [place] tel:[phone] [facility] LABORATORY EXAM [employer] [facility] [place] NOS 3-201 Shyann. [address] Provider: Of [address] [facility] OR KIRBY [place], [place], [place], PPS[facility]. [address] [facility] tel:[phone] [place], [id number], tel:[phone] Family History Family Member Diagnosis Age At [...] date was NULL/NULL/2004. ; Source: Source Unspecified measles, mumps and rubella administered Note: Pt reports prior virus vaccine vaccination on health history form dated 09/20/05.Invalid documented admin date was NULL/NULL/2004. ; Source: Source Unspecified Payers Payer name Insurance type Covered libertarian ID Authorization(s) [facility] CI [id number] Social History Type Description Quantity Date Captured Comments Alcohol Use Details Unknown Caffeine Use Details Unknown Tobacco Use Status Smoking Status Heavy tobacco smoker Sex Female Vital Signs Date / Height Weight BMI Pulse Blood Temperature Respiratory Body Head BMI Pulse Inhaled Time: Rate Pressure Rate Surface Circumference percentile Ox Ox Area 97.10 12:03 PM Chief Complaint And Reason For Visit Most recent encounter only, dated '10/20/2019 11:50'. Vaginal Discharge a /o Odor (chief complaint). Description: Pt presents for reassurance. Last IC was 13 days ago. Since she has had more heartburn (she has increased her intake of fried food), increasedfrequency of urination, and nauseous in the morning. She feels . PT negative. She requests and exam for peace of mind. Denies vaginal symptoms. PW Reason For Referral Reason For Referral No information Plan Of Treatment Date Type Action Status Goal Tobacco cessation counseling completed Goal Tobacco cessation counseling completed Referral Ordered: ordered Referrals: [facility] [facility]. Evaluate and treat Referral Ordered: ordered [place] [facility] -[facility] (related to Unspecified ovarian cyst, left side ) Referral Ordered: ordered [place] [facility] -[facility] (related to Other ovarian cyst, left side) Referral Referred To: ordered [place] [facility] Ordered: Referrals: [facility]. [place] [facility]. Assume care Referral Ordered: ordered [facility] (related to Ovarian Cyst, NOS) Referral Referred To: ordered [facility] Ordered: Referrals: [facility]. [facility] Location: [place]. Evaluate and treat History Of Present Illness Encounter Date Complaint History Of Present Illness Vaginal Discharge a/o Odor Pt presents for reassurance. Last IC was 13 days ago. Since she has had more heartburn (she has increased her intake of fried food), increased frequency of urination, and nauseous in the morning. She feels . PT negative. She requests and exam for peace of mind. Denies vaginal symptoms. PW Functional Status Date Functional Assessment No information Medications Administered Medication Instructions Dosage Effective Dates (start - stop) Status Comments No information Instructions Date Instruction Additional Information No information Assessments Type Assessment Date assessment Frequency of micturition assessment Encounter for test, result negative assessment Encounter for oth general cnsl and advice on contraception 2019 assessment Noninflammatory disorder of vagina, unspecified Goals Health Concern Goal Type Priority Status Date No information Medical Equipment Description Device [place] Device Identifier Effective Dates (start - stop ) Status No information Mental Status Date Cognitive Assessment Normal Orientation Health Concerns Observation Date No information Concern Status Date No information
--- OUTSIDE RECORDS SUMMARY | 2019-11-23 03:50 | XMS REPORT | Continuity of Care Document ---
:1990 Author Organization [facility] Address [address] [place] [address] Phone Care Team Providers Name Role Phone Rachael Davila Unavailable Unavailable Allergies, Adverse Reactions, Alerts Substance Reaction Status Sulfa (Sulfonamide Antibiotics) Active Penicillins Active DIPHENHYDRAMINE HCL No longer active Medications Medication Instructions Dosage Effective Status Comments Dates (start - stop) Elayne 30 mg tablet 1 tab po within - Active 120 hours of unprotected sex (#1) LEXAPRO (unknown Not Available - Active strength) CLONAZEPAM (unknown Not Available - Active strength) Elayne 30 mg tablet 1 tab po within - No Longer 120 hours of Active unprotected sex (#1) metronidazole 500 mg 1 tab po bid x 7d - No Longer tablet (#14) Active Diflucan 150 mg take 1 tablet by 150 MG - No Longer tablet oral route once Active Provera 10 mg tablet take 1 tablet by 10 MG - No Longer oral route every Active day Flagyl 500 mg tablet take 1 tablet by 500 MG - No Longer oral route 2 Active times every day Diflucan 150 mg take 1 tablet by 150 MG - No Longer tablet oral route once Active Diflucan 150 mg take 1 tablet by 150 MG - No Longer tablet oral route once Active Aubra 0.1 mg-20 mcg take 1 tablet by 1.00 tablet - No Longer tablet oral route every Active day JAYNA (28) 3 mg-0.02 take 1 tablet by 1.00 tablet - No Longer mg tablet oral route every Active day fluconazole 150 mg 1 po x 1 for - No Longer tablet fungal infection Active (#1) azithromycin 500 mg ICA: 1 tab po - No Longer tablet administer in Active clinic (#1) ibuprofen 400 mg ICA: administer 2 - No Longer tablet tab PO in clinic, Active may repeat 1-2 tab po prn following ICA ibuprofen 400 mg 1-2 tab po q 6-8 - No Longer tablet hrs prn pain Active (#10) ondansetron 8 mg 1 ODT administer - No Longer disintegrating in clinic PRN, Active tablet may repeat x 1 Nexplanon 68 mg Insert in clinic - No Longer subdermal implant Active Elayne 30 mg tablet 1 tab po within - No Longer 120 hours of Active unprotected sex (#1) CELEXA (unknown Not Available - No Longer strength) Active Problems Condition Effective Dates (start - Clinical [...] for malignant neoplasm of breast 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 Other Professor Of Rhetoric.Svc. STI HCG QUANTITATIVE Results Test Name Date and Time Measure Units Reference Range Abnormal Flag Status Comments Panel Description: hCG Quantitative - STAT Final hCG Quantitative 722 See Final Gestational Age Expected hCG 00:00:00 Comment values (mIU/mL)<1 Week: 5-501-2 Weeks: 50-5002-3 Weeks: 100-46917-8 Weeks: 483-977077-8 Weeks: 9854-099050-2 Weeks: 69249-3587678-1 Weeks: 65010-8956488-7 Months: 02783-1349969Efbbjjkblisupv < 10 The table above provides only an estimate of gestationalage and should be used in conjunction with other more reliable and accurate methods for establishing gestationalage, e.g., Last Menstrual Period (LMP) or ultrasound. Forresults of 5-25 mlU/mL, collect another sample and repeattest in 2 days, if is suspected. Values from different assay methods may vary.The use of this assay to monitor or to diagnose patients with cancer or any condition unrelatedto has not been cleared or approved bythe FDA or the installation helper of the assay.This test was developed and its performance characteristicsdetermined by CDD and found acceptable for extendedstabillity (time and/or temperature). The FDA has notapproved or cleared this test for extended stability;however, FDA clearance or approval is not currentlyrequired for clinical use.

Performed by:
AMINA ([id number])

Panel Description: Hemoglobin Final Hemoglobin 10:29:56 13.50 gm/dL Final Advance Directives Directive Yes / No Effective Date File Name No information Encounters Encounter Practice Location Reason(s) Diagnoses Date Provider Providers Description For Visit Copied on Encounter [facility] [place]. [address], [place], [place], [place], [address] [address], [place], [place] tel:[phone] [place], [id number], [place] tel:[phone] [facility] Human Raphaelidis Referring [facility] [place] immunodeficienc 3 [facility]. [address] Provider: Of Greater y virus [HIV] [address], [place], [place], Raphael[place] [address] [place] [address]. , [address] , New test, tel:[phone] [address] , [place], [place] [address] [place], [place], [id number], negativeCervica [address]. [place] l high risk HPV tel:[phone] tel:[phone] DNA test [id number] positiveNoninfl ammatory disorder of vagina, unspecified [facility] Human Raphaelidis Referring [facility] [place] immunodeficienc Karina. [address] Provider: Of Greater y virus [HIV] [address], Lorie [place], counselingEncou [place], [place], Gaurang J, [address] [place] [address]. [address], New screening for tel:[phone] St, [place], [place] [address] [place], [address]. [id number], immunodeficienc tel:[phone] [place] 472214 tel:[phone] virusEncounter 726643 for test, result negativeEncount er for prescription of emergency contraceptionEn cntr screen for infections w sexl mode of transmissAcute vaginitis [facility] White Neyda. [facility] [place] [address], [place], [place], [address], [address], [place], [place], [id number], [place] tel:[phone] [facility] Secondary Fransico Rodriguez. [facility] [place] amenorrhea [address], [place], [place], [address]. [address] tel:[phone] St, [place] [address] [place], [place], [id number], [place] tel:[phone] [facility] Encounter for Fransico Rodriguez. Referring [facility] [place] test, [address] Provider: Of Greater result [address], [place], [place], [place], [address]. [place], [address] vaginitisEncntr tel:[phone] [address], [place] [address] St, [place], [place], [address]. [id number], sexl mode of tel:[phone] [place] transmissSecond [id number] tel:[phone] ximena amenorrhea [phone] [facility] Encounter for Gaurang Referring [facility] [place] test, issa. 620 Provider: Of Greater result [address], [place], negativeEncntr [place], [place], Gaurang J, [address] [place] [address], [place]. [address], New infections w tel:[phone] St, [place], [place] [address] [place], [address]. [id number], transmissPelvic tel:[phone] [place] and perineal 525509 tel:[phone] painCandidiasis 225970 of vulva and vaginaAmenorrhe a, unspecified [facility] Enctr srvlnc Demian Faye. Referring [facility] [place] implantable [address] Provider: Of Greater subdermal [address], [place], [place], [place], [address], [place], [address] counter for [place]. [address], New initial St, [place], [place], [address]. [id number], contraceptive [place] pillsBody mass tel:[phone] index (BMI) 730604 25.0-25.9, adult [facility] Encounter for Mar-1 Hemmer Referring Parenthood Eric test, [facility] Provider: Of Greater result 9 [address]. [address] [place], negativeFrequen [address], Hem[place] [address] cy of [place], [place], [place], [place], [place] micturitionHuma [address]. [address] [place], [place], n tel:[phone] [address] , [id number], immunodeficienc [address] [place], [place] y virus [HIV] [address]. tel:[phone] counselingEncou tel:[phone] nter for 892241 screening for human immunodeficienc y virusEncntr screen for infections w sexl mode of transmissCandid iasis of vulva and vaginaEncounter for screening for oth infec/parastc diseasesNoninfl ammatory disorder of vagina, unspecified [facility] Unspecified Mar-0 Demian Faye. [facility] [place] ovarian cyst, [address] Of Greater left side [address], [place], [place], [address], [address] [place]. , [place], [place], [id number], [place] tel:[phone] [facility] Other ovarian Mar-0 Demian Faye. [facility] [place] cyst, left side [address], [place], [place], [address], [address] [place]. , [place], [place], [id number], [place] tel:[phone] [facility] Lab Only Anemia, Nov- Parete Referring [facility] [place] (chief unspecifiedEncn Viky. [address] Provider: Of Greater complaint) tr for general [address] , [place], adult medical [place], [place], [place], [address] [place] w/o [address]. [address], New abnormal tel:[phone] St, [place], [place] [address] [place], [id number], [address].Consu [place] lting tel:[phone] Provider: [id number] NURSE [place] [facility]. [facility] Encounter for Nov- Judith Referring [facility] [place] elective Lanny. [address] Provider: Of Greater termination of [address], [place], pregnancyLess [place], [place], Judith R, [address] than 8 weeks [address]. [address] , New gestation of tel:[phone] [place], [place], pregnancyEnctr [address] [place], [place], [id number], for init [address]. [place] prescription of tel:[phone] tel:[phone] implntbl [phone] subdermal contracepUnspec ified ovarian cyst, left side [facility] Encounter for Demian Faye. Referring [facility] [place] test, [address] Provider: Of Greater result 9 , [place], [place], [place], [address], White, [address] Encounter for [place]. [address], [facility] ot general St, [place], [place], [place], [address]. [id number], on US contraceptionLe tel:[phone] ss than 8 weeks 153864 gestation of pregnancyEncntr screen for infections w sexl mode of transmissEncoun ter for test, result negativeUnspeci fied ovarian cyst, unspecified side [facility] Low grade Oct- Judith Referring [facility] [place] intrepith . [address] Provider: Of Greater lesion cyto smr 8 [facility], [facility], crvx (LGSIL) [place], [place], Judith R, [address] [address]. [address] , New tel:+[phone] [place], [address] [place], [place], [id number], [address]. [place] tel:+6072 tel:[phone] [facility] Human Sep-2 Hemmer [facility] [place] immunodeficienc [place] Of Greater y virus [HIV] [address]. [address] [place], counselingEncou W [facility], [address]ter for [place], [place], St, [place] test, [address]. [place], result tel:[phone], negativeEncount [address] [place] er for oth tel:[phone] screening for [phone] malignant neoplasm of breastEncntr for loan clerk exam (general) (routine) w/o abn findingsEncntr screen for infections w sexl mode of transmissEncoun ter for oth general cnsl and advice on contraceptionNi cotine dependence, unspecified, uncomplicatedEn counter for oth general cnsl and advice on contraceptionEn counter for screening for human immunodeficienc y virus [facility] Encounter for Mar-1 Judith Referring [facility] [place] elective 6-201 Lanny. [address] Provider: Of [facility] termination of [address], [place], pregnancy9 [place], [place], Judith R, [address] weeks gestation [address]. [address] W , [facility] tel:[phone], [place], pregnancyEncoun [address] [place], [place], [id number], [place] [address]. [place] surveillance of tel:+ tel:[phone] contraceptive [phone] pills [facility] Encounter for Mar-1 White Neyda. [facility] [place] elective [address] Of [facility] termination of 8 , [place], [place], [address], [address], [place], [place], [id number], [place] tel:[phone] [facility] Encntr screen Mar-0 Parete Referring [facility] [place] for dis of the . [address] Provider: Of [facility] bld/bld-form [address], Viky [place], org/immun [place], [place], Parete, [address] mechnsmEncounte [address]. [address] , New r for tel:[phone] St, [place], [place], [place], [place] [address] [place], [address]. [id number], positiveHuman tel:[phone] [place] immunodeficienc 778765 tel:[phone] y virus [HIV] 559165 counselingEncnt r screen for infections w sexl mode of transmiss8 weeks gestation of pregnancyEncoun ter for oth general cnsl and advice on contraceptionEn counter for initial prescription of contraceptive pillsEncounter for screening for human immunodeficienc y virus [facility] Human Nov- [facility] Provider: Of [facility] y virus [HIV] 7 NURSE OR KIRBY [place], counselingEncou [facility]. [address] for , [facility] screening for [place], human [id number], immunodeficienc [place] y virus tel:[phone] [facility] Dec- [facility] [place] Rachael. [address] [facility], [place], [place], [address] [address], [place], tel:[phone] [place], [id number], [place] tel:[phone] [facility] Candidiasis of Raphaelidis [facility] vulva and Karina. [address] Of Greater vagina [address] [facility], [place], [place], [place], [address] [address]. , [facility] tel:[phone] [place], [id number], [place] tel:[phone] [facility] Encounter for White Neyda. [facility] test, [address] Of Greater result 6 [place], [place], [place], [address], [address] screen for [place]. St, [place] infections w [place], [place], sexl mode of [id number], transmissEncoun US ter for oth tel:[phone] general cnsl 267847 and advice on contraceptionPe rson w feared hlth complaint in whom no diagnosis is made [facility] Encounter for [place] [facility] [place] prescription of [place] Of Greater emergency 6 [address]. [address] [place], contraception [address] , [address] [place], [place], , [facility] [address]. [place], [place], tel:[phone], [address] [place] tel:[phone] [facility] Ovarian Cyst, [facility] NOS Shyann. [address] Of Greater [address] [facility], [place], [place], [place], [address] [address]. , [facility] tel:[phone] [place], [id number], [place] tel:[phone] [facility] PT, [facility] NegativeYeast-v [employer]. [address] Of Greater ulvovaginalOvar 5 [place], [place], joseluis Cyst, [place], [place], [address] NOSDUB [address]. , New tel:[phone] [place], [id number], [place] tel:[phone] [facility] Anemia, Judith [facility] ScreeningAB W/O Lanny. [address] Of Greater Comp, Complete 5 [place], [place], [place], [place], [address] [address]. , [facility] tel:[phone] [place], [id number], [place] tel:[phone] [facility] EC Counseling Fransico Rodriguez. [facility] [place] Or RX [address] Of [facility] 5 [facility], [place], [address]. [address] tel:[phone] [facility] [address] [place], [place], [id number], [place] tel:[phone] [facility] VICE PRESIDENT QUALITY Exam, [facility] Routine WWESTI . [address] Of [facility] ScreeningCervic 4 [place], [place], itis/Nabothian [place], [place], [address] CystOCP, Start [address]. , [facility] tel:[phone] [place], [id number], [place] tel:[phone] [facility] PT, [place] Jennifer. [facility] [place] NegativeOCP, [address] Of [facility] StartYeast-vulv 4 St[place]on, [place], [place], [address]. [address] tel:[phone] [facility] [address] [place], [place], [id number], [place] tel:[phone] [facility] Judith [facility] [place] 8-201 Lanny. [address] Of [address], [address] [address]. [facility] tel:[phone] [place], [id number], [place] tel:[phone] [facility] EC Counseling Bibi Anita. [facility] [place] Or RXOCP, Start [address] Of [address], [place], [address] [address]. [facility] tel:[phone] [place], [id number], [place] tel:[phone] [facility] [place] 3-201 Shyann. [address] Of [address], [address] [address]. [facility] tel:[phone] [place], [id number], [place] tel:[phone] [facility] LABORATORY EXAM [facility] [place] NOS 3-201 Shyann. [address] Provider: Of [address], NURSE [place] KIRBY [place], PPSFL. [address] [address]. [facility] tel:[phone] [place], [id number], [place] tel:[phone] Family History Family Member Diagnosis Age At [...] form dated 09/20/05.Invalid documented admin date was /. ; Source: Source Unspecified measles, mumps and rubella administered Note: Pt reports prior virus vaccine vaccination on health history form dated 09/20/05.Invalid documented admin date was NULL/NULL/2004. ; Source: Source Unspecified Payers Payer name Insurance type Covered constitution party ID Authorization(s) [facility] [id number] Social History Type Description Quantity Date Captured [...] cessation counseling completed Referral Ordered: ordered Referrals: Traffic Operator. Evaluate and treat Referral Ordered: ordered [place] [facility] -Traffic Operator (related to Unspecified ovarian cyst, left side ) Referral Ordered: ordered [place] [facility] -Traffic Operator (related to Other ovarian cyst, left side) Referral Referred To: ordered [place] [facility] Ordered: Referrals: Traffic Operator. [place] [facility]. Assume care Referral Ordered: ordered [facility] (related to Ovarian Cyst, NOS) Referral Referred To: ordered [facility] Ordered: Referrals: Traffic Operator. [facility] Location: [place]. Evaluate and treat Appointment [facility] History Of Present Illness Encounter Date Complaint History Of Present Illness No information Functional Status Date Functional Assessment No information Medications Administered Medication Instructions Dosage Effective Dates Status Comments (start - stop) Aubra 0.1 mg-20 take 1 tablet by 1.00 tablet - No Longer mcg tablet oral route every Active day Instructions Date Instruction Additional Information No information Assessments Type Assessment Date assessment Anemia, unspecified assessment Encntr for general adult medical exam w/o abnormal findings Goals Health Concern Goal Type Priority Status Date No information Medical Equipment Description Device Carmel Device Identifier Effective Dates (start - stop ) Status No information Mental Status Date Cognitive Assessment No information Health Concerns Observation Date No information Concern Status Date No information
[2019-11-23] MEDS ORDERED: Acetaminophen TAB* 325 MG ONE (04:36)
[2019-11-23] MEDS ORDERED: Acetaminophen TAB* 325 MG PO ONE (04:37)
[2019-11-23 04:46] VITALS: BP 142/97
== END 2019-11-23 04:35 | disposition home or self-care (01) ==
LOC: ED 02:28
DX: J10.1 Influenza due to other identified influenza virus with other respiratory manifestations (principal); I10 Essential (primary) hypertension; F41.9 Anxiety disorder, unspecified; F32.9 Major depressive disorder, single episode, unspecified; Z90.721 Acquired absence of ovaries, unilateral; Z87.891 Personal history of nicotine dependence; Z79.899 Other long term (current) drug therapy; Z88.0 Allergy status to penicillin; Z88.2 Allergy status to sulfonamides
CPT/HCPCS: 71045; 99283; A9270-GY

== ENCOUNTER 2019-12-01 10:05 | Emergency (ER) | payer OTHER ==
--- OUTSIDE RECORDS SUMMARY | 2019-12-01 10:54 | XMS REPORT | Continuity of Care Document ---
:1990 External Reference #:[id number] Author Name Tristen Haywood NP (transmitted by agent of provider Nika Schuler) Address [address] [facility], [place] [address] Care Team Providers Name Role Phone Ina Bowers MD - Internal Care Team Information Plug Sorter Medicine Mj Foley MD - Otolaryngology Care Team Information Plug Sorter Elan Marshall MD - Care Team Information Plug Sorter [phone] Otolaryngology Problems Active Problems Provider Date Benign essential hypertension Nurse Visit [place] Onset: 02/27/2014 Generalized anxiety disorder Margaux Thomas M.D. Onset: 02/27/2014 Acne Margaux Thomas M.D. Onset: 02/27/2014 Mitral valve disorder [place] [facility] Schedule Onset: 06/26/2014 Psoriasis Ina Bowers M.D. Onset: 07/22/2015 Social History Type Date Description Comments Sex Unknown Tobacco Use Start: Unknown End: Former Cigarette Smoker Unknown 1/2 Pack Daily Tobacco Use Start: Unknown 10 yr, quit when preg 2012 ETOH Use Occasionally consumes alcohol Tobacco Use Start: Unknown End: Patient is a former Unknown smoker Recreational Drug Use Current Drug User Recreational Drug Use drug use occ marijuana Tobacco Use Start: Unknown Patient is a current smoker, smokes every day Smoking Status Reviewed: 11/27/19 Patient is a current smoker, smokes every day Exercise Type/Frequency Does not exercise Allergies, Adverse Reactions, Alerts Active Allergies Reaction Severity Comments Date Sulfa Antibiotics 02/26/2014 Penicillin 02/26/2014 Benadryl 05/01/2014 Medications Active Medications SIG Qnty Indications Ordering Provider Date Flovent HFA 2 puffs twice a 12gm J06.9 Jennifer Cotton, 11/27/2019 110mcg/Act day for cough M.D. Aerosol Rinse your mouth after each use Triamcinolone Every Day Unknown 05/31/2019 Acetonide 0.1% Cream Ibuprofen 3 Times A Day 30tabs Unknown 03/19/2019 600mg Tablets as Needed as needed for Pain Escitalopram Oxalate one daily Hollenback, 10mg Nicelee F, NPP Tablets Clonazepam one daily [place]ollenback, 1mg Tablets Nicelee F, NPP History Medications Doxycycline Hyclate Twice Daily 28caps Unknown 05/31/2019 - 11/27/2019 100mg Capsules Immunizations CPT Code Status Date Vaccine Lot # [id number] Refused 08/03/2014 Flu Vaccine Split Virus Preservative Free For Indiv 3Yr Older Vital Signs Date Vital Result Comment 11/27/2019 4:16pm Height 67 inches 5'7" Heart Rate 87 /min BP Systolic Sitting 140 mmHg BP Diastolic Sitting 102 mmHg BP Systolic Recheck 132 mmHg BP Diastolic Recheck 94 mmHg Body Temperature 98.2 F O2 % BldC Oximetry 98 % 10/25/2018 11:09am Height 67 inches 5'7" Weight 176.00 lb Heart Rate 91 /min BP Systolic Sitting 122 mmHg BP Diastolic Sitting 80 mmHg O2 % BldC Oximetry 96 % BMI (Body Mass Index) 27.6 kg/m2 Results Test Acquired Date Facility Test Result H/L Range Note Influenza A & B 11/23/2019 [facility] Flu AB (SEE NOTE) [address] [address] [phone] Influenza B Molecular POSITIVE Abnormal Negative 2 CBC Auto 05/31/2019 [facility] White Blood 7.6 10^3/uL Normal 3.5-10.8 [address] [place] [address] [phone] Red Blood Count 4.47 10^6/uL Normal 3.70-4.87 Hemoglobin 14.3 g/dL Normal 12.0-16.0 Hematocrit 42 % Normal 35-47 Mean Corpuscular Volume 94 fL Normal 80-97 Mean Corpuscular Hemoglobin 32 pg High 27-31 Mean Corpuscular HGB Conc 34 g/dL Normal 31-36 Red Cell Distribution Width 14 % Normal 10-15 Platelet Count 243 10^3/uL Normal 150-450 Mean Platelet Volume 8.1 fL Normal 7.4-10.4 Abs Neutrophils 4.9 10^3/uL Normal 1.5-7.7 Abs Lymphocytes 2.0 10^3/uL Normal 1.0-4.8 Abs Monocytes 0.6 10^3/uL Normal 0-0.8 Abs Eosinophils 0.1 10^3/uL Normal 0-0.6 Abs Basophils 0.0 10^3/uL Normal 0-0.2 Abs Nucleated RBC 0.0 10^3/uL Granulocyte % 63.8 % Lymphocyte % 26.3 % Monocyte % 8.2 % Eosinophil % 1.2 % Basophil % 0.5 % Nucleated Red Blood Cells % 0.1 Laboratory 05/31/2019 [facility] Erythrocyte Sed 11 mm/Hr Normal 0-19 4 test finding [address] [place] [address] [phone] Laboratory 05/31/2019 [facility] Gardnerella/Yea SEE RESULT 5, 6 test finding [address]: Vaginal Dna BELOW [place], [place] [id number] [phone] Trichomonas Vaginalis Rna Negative Negative 7 GC/Chlamydia 05/31/2019 [facility] Chlamydia Negative Negative Amplified Rna [address] [place] [address] [phone] Neisseria gonorrhoeae (GC) Katelyn Negative Negative Mycoplasma Hominis 05/31/2019 [facility] Mycoplasma hominis URINE PCR [address] [place] [address] [phone] Mycoplasma hominis Result Negative 8 Ureaplasma 05/31/2019 [facility] Ureaplasma Source URINE [address] [place], [place] [address] [phone] Ureaplasma urealyticum PCR Negative 9 Ureaplasma parvum PCR Positive Abnormal 10 Laboratory test 05/31/2019 [facility] Poc , Negative Negative [address] [place] [address] [phone] Poc Urinalysis 05/31/2019 [facility] Poc Glucose, Negative Negative [address] [place] [address] [phone] Poc Bilirubin, Urine Negative Negative Poc Ketone, Urine Negative Negative Poc Specific Marcellus, Urine 1.015 Normal 1.010-1.030 Poc Blood, Urine Negative Negative Poc pH, Urine 7.0 Normal 5-9 Poc Protein, Urine Negative Negative Poc Urobilinogen, Urine 0.2 Negative Poc Nitrite, Urine Negative Negative Poc Leukocytes, Urine Negative Negative Poc Color, Urine Light yellow Poc Clarity, Urine Clear 12 1 Suboptimal collection technique may reduce sensitivity of test. Refer to the [facility] Test Catalog for collection information: [email or web address] As with all diagnostic procedures, the laboratory results obtained should be used in conjunction with other clinical information available to the physician, including confirmation by another method, as applicable. 2 Manager [employer] Services: [id number] Would you like to order Trichomonas Vaginalis RNA testing? Y 6 SEE RESULT BELOW Name: DELBERT DILLARD : [address]: David Soni MD Acct: [id number] Unit: [id number] AGE: 29 Location: [facility] Re05/31/19 SEX: F Status: DEP ER SPEC: [id number] LULY: 05/31/19-13[address] [facility] DR: David Soni MD REQ: [id number] RECD: 06/01/19 STATUS: COMP [facility] DR: Ina Bowers MD _ SOURCE: VAGINAL SPDESC: ORDERED: Siobhan,Yeast DNA COMMENTS: [id number] Would you like to order Trichomonas Vaginalis RNA testing? Y Procedure Result Reported Site Gardnerella/Yeast: Vaginal DNA Final 06/01/19- 1610 ML Organism 1 Negative Gardnerella Organism 2 [...] therapeutic success or failure. * ML - Main Lab . END OF REPORT DEPARTMENT OF PATHOLOGY, [address] [place] [id number] Erlin Xiong M.D. Director [facility] # [id number] GC/Chlamydia Source?: Endocervical Trichomonas Source: Endocervical 8 REFERENCE VALUE Not Applicable ADDITIONAL INFORMATION This test was developed and its performance characteristics determined by [facility] in a manner consistent with CLIA requirements. This test has not been cleared or approved by the U.S. Food and Drug Administration. Test Performed by: [facility] - [address] [address] 9 REFERENCE VALUE Not Applicable 10 REFERENCE VALUE Not Applicable ADDITIONAL INFORMATION This test was developed and its performance characteristics determined by [facility] in a manner consistent with CLIA requirements. This test has not been cleared or approved by the U.S. Food and Drug Administration. Test Performed by: [facility] - [address] [address] 11 Manager Creative Services: [id number] Test Disclaimer: Positive bacteria, red blood cells, white blood cells, early , low specific gravity, and other factors may cause false positive or negative results. It is recommended to retest unexpected and borderline results with a serum test when applicable. If is still suspected, please repeat test after 48 to 72 hours. 12 Manager Creative Services: [id number] Procedures Description No Information Available Medical Devices Description No Information Available Encounters Description No Information Available Assessments Date Code Description Provider 11/27/2019 J06.9 Acute upper respiratory infection, Tristen Caruso Yobany , KATHY unspecified 11/27/2019 I10 Essential (primary) hypertension Tristen Caruso KATHY Haywood Plan of Treatment 11/27/2019 - Tirsten Haywood, NPJ06.9 Acute upper respiratory infection , unspecifiedNew Medication:Flovent HFA 110 mcg/Act - 2 puffs twice a day for cough Rinse your mouth after each useNew Xrays:Chest PA & Lat 2 VWS, Ordered : 11/27/19Comments:Your symptoms appear viral. You have tested positive for Flu B. I do not think you need a repeat x-ray today. I have placed an order for one. If by end of next week you do not feel better, get the x-ray done.Continue Mucinex and Nyquil for added relief. Start using the Ventolin puff for relief of coughRest well to help with recoveryCall with any worsening symptoms.Follow up:4 weeks - BP [id number] Essential (primary) hypertensionComments:Your BP reading today is high. Which places you at risk for cardiovascular disease. We need to address this soon. You are due for your physical. Please make your appointment soon. Please follow up in 4 weeks for BP recheck. Functional Status Description No Information Available Mental Status Description No Information Available Referrals Description No Information Available
[2019-12-01] MEDS ORDERED: Albuterol/Ipratropium NEB.SOL* Albuterol 2.5 MG/Ipratropium 0.5 MG 3 ML INH ONE (11:47)
--- NOTE | 2019-12-01 11:59 | UC ---
Respiratory Complaint HPI - HPI Summary HPI Summary: 29 yo female presents with cough. She tells me that she was seen in the ED on for a cough, fatigue, body aches, and chest pain with coughing. Work up was done and she was told she had bronchitis and the flu - per pt. She was not prescribed tamiflu or anbx, but advised to try supportive care. She has been doing this with OTC medications, but states her cough is not getting any better and she is concerned for PNA today. She was also seen at [place] ED on 11/29 with dx of bronchitis - no imaging. Was placed on albuterol inhaler and 50mg prednisone for 3 days. Pt states these are helping, but not significantly. She also admits that she is out of her klonopin a day early (due for refill tomorrow ) and is very anxious today due to this -- admits this is contributing to her feeling SOB. She is a former smoker, but does not currently. Denies abdominal pain, n/v - History of Current Complaint Chief Complaint: UCGeneralIllness Stated Complaint: CHEST CONGESTION Time Seen by Provider: 12/01/19 11:58 Hx Obtained From: Patient Hx Last Menstrual Period: 11/27 Onset/Duration: Gradual Onset Severity Initially: Severe Severity Currently: Severe Pain Intensity: 9 Pain Scale Used: 0-10 Numeric - Allergies/Home Medications Allergies/Adverse Reactions: Allergies Allergy/AdvReac Type Severity Reaction Status Date / Time Penicillins Allergy Hives Verified 12/01/19 10:26 Sulfa (Sulfonamide Allergy Hives Verified 12/01/19 10:26 Antibiotics) Home Medications: Home Medications Escitalopram * [Lexapro 10 mg (NF)] 5 mg PO DAILY 10/09/18 [History Confirmed ] clonazePAM [Clonazepam] 1 mg PO DAILY 10/09/18 [History Confirmed 12/01/19] Ibuprofen TAB* [Motrin TAB* 800 MG] 800 mg PO Q6H PRN 03/22/19 [History Confirmed 12/01/19] Triamcinolone 0.1% CREAM (NF) [Kenalog 0.1% Cream (NF)] 1 applic TOPICAL DAILY 05/31/19 [History Confirmed 12/01/19] DOXYcycline CAP(*) [DOXYcycline 100MG CAP(*)] 100 mg PO BID #14 cap 12/01/19 [Rx ] PMH/Surg Hx/FS Hx/Imm Hx Psychological History: Anxiety, Depression - Surgical History Surgical History: Yes Surgery Procedure, Year, and Place: RIGHT OOPHERECTOMY 2018 - Family History Known Family History: Positive: Cardiac Disease - Not immediate family, uncle, Hypertension, Non-Contributory Negative: Blood Disorder - blood clots - Social History Lives: With Family Alcohol Use: Occasionally Alcohol Amount: quit 20 days ago Substance Use Type: Marijuana Substance Use Comment - Amount & Last Used: quit M 25 days ago Smoking Status (MU): Former Smoker Type: Cigarettes Amount Used/How Often: 1/2 PPD Length of Time of Smoking/Using Tobacco: 9 years Have You Smoked in the Last Year: No When Did the Patient Quit Smoking/Using Tobacco: 2 months Household Exposure Type: Cigarettes - Immunization History Most Recent Influenza Vaccination: about 2 months ago Most Recent Tetanus Shot: 11/25/13 Most Recent Pneumonia Vaccination: never Review of Systems All Other Systems Reviewed And Are Negative: No Constitutional: Positive: Fatigue Skin: Positive: Negative Eyes: Positive: Negative ENT: Positive: Negative Respiratory: Positive: Cough Cardiovascular: Positive: Negative Gastrointestinal: Positive: Negative Neurological/Mental Status: Positive: Negative Psychological: Positive: Anxious Physical Exam - Summary Physical Exam Summary: GENERAL: WDWN. Intermittently tearful SKIN: No rashes, sores, lesions, or open wounds. HEENT: Head: AT/NC Eyes: Conjunctiva clear without inflammation or discharge. Ears: Hearing grossly normal. TMs intact, no bulging, erythema, or edema. Nose: Nasal mucosa pink and moist. NTTP maxillary and frontal sinus. Throat: Posterior oropharynx without exudates, erythema, or tonsillar enlargement. Uvula midline. NECK: Supple. Nontender. No lymphadenopathy. CHEST: Moderate wheezing throughout. No r/r. No accessory muscle use. Breathing comfortably and in no distress. CV: RRR. Pulses intact. Cap refill <2seconds NEURO: Alert. PSYCH: Anxious and intermittently tearful Triage Information Reviewed: Yes Vital Signs: Initial Vital Signs Temp 99 F 12/01/19 10:22 Pulse 97 12/01/19 10:22 Resp 16 12/01/19 10:22 BP 145/97 12/01/19 10:22 Pulse Ox 98 12/01/19 10:22 Vital Signs Reviewed: Yes Diagnostics - Radiology CXR Radiology Interpretation Completed By: Radiologist Summary of Radiographic Findings: IMPRESSION: No acute cardiopulmonary process by radiograph. Re-Evaluation - Re-Evaluation First Eval Re-Evaluation Time: 13:33 Change: Improved Comment: Better after 2nd nebulizer. No longer tearful and feeling less anxious s/p ativan Respiratory Course/Dx - Course Course Of Treatment: CXR as above. In the clinic she was given a duoneb treatment with mild relief - still moderate wheezing throughout. She was given an albuterol nebulizer treatment and 1mg of Ativan for her anxiety and had significant improvement. No longer tearful and feeling better. Breathing easier and less wheezing. Will place her on doxycycline and have her continue her prednisone and albuterol inhaler as prescribed. - Differential Dx/Diagnosis Provider Diagnosis: Bronchitis, Anxiety Discharge ED - Sign-Out/Discharge Documenting (check all that apply): Patient Departure All imaging exams completed and their final reports reviewed: Yes - Discharge Plan Condition: Stable Disposition: HOME Prescriptions: DOXYcycline CAP(*) [DOXYcycline 100MG CAP(*)] 100 mg PO BID #14 cap Patient Education Materials: Acute Bronchitis (ED) Referrals: Ina Bowers MD [Primary Care Provider] - Additional Instructions: If you develop a fever, shortness of breath, chest pain, new or worsening symptoms - please call your PCP or go to the ED immediately. Your blood pressure was high at todays visit. Please see your primary provider within 4 weeks for recheck and re-evaluation. YOUR X-RAY DID NOT SHOW ANY PNEUMONIA TODAY Take your antibiotic as prescribed. Continue your albuterol inhaler and prednisone as directed. - Billing Disposition and Condition Condition: STABLE Disposition: Home
[2019-12-01] MEDS ORDERED: LORazepam TAB(*) 1 MG PO ONE (12:43)
[2019-12-01] MEDS ORDERED: Albuterol 2.5 MG/3 ML NEB.SOL* (0.083%) INH ONE (12:44)
[2019-12-01 13:34] VITALS: BP 145/59
== END 2019-12-01 13:45 | disposition home or self-care (01) ==
LOC: UCEAST 10:05
DX: J40 Bronchitis, not specified as acute or chronic (principal); F41.9 Anxiety disorder, unspecified; F32.9 Major depressive disorder, single episode, unspecified; Z87.891 Personal history of nicotine dependence; Z79.899 Other long term (current) drug therapy; Z88.0 Allergy status to penicillin; Z88.2 Allergy status to sulfonamides
CPT/HCPCS: 71046; 99212; A9270-GY; G0463; J7512